=== PATIENT | female | born 1965 | race Caucasian/White ===

== ENCOUNTER 2017-01-22 19:24 | Inpatient (IN) | payer OTHER ==
[2017-01-22] MEDS ORDERED: Meperidine PF 25 MG/ML Syringe IVPUSH ONE (20:39)
[2017-01-22] MEDS ORDERED: Ondansetron 4 MG/2 ML SDV IVPUSH ONE (20:39)
[2017-01-22] MEDS: Sodium Chloride 0.9% 1,000 ML IV SCH ×2 (20:59→23:20)
[2017-01-22] MEDS ORDERED: Morphine 2 MG/ML Syringe IVPUSH ONE ×2 (21:10→23:18)
[2017-01-22] MEDS ORDERED: Iopamidol 612 MG/ML 100 ML Bottle IV PRN (22:08)
[2017-01-22] MEDS ORDERED: Sodium Chloride 0.9% 10 ML Syringe FLUSH ONE (22:08)
--- NOTE | 2017-01-22 23:34 | EDM.PDOC ---
ED HPI GI/ABDOMINAL - General Chief Complaint: Abdominal Pain Stated Complaint: SHARP PAIN IN ABD/RT SIDE Time Seen by Provider: 01/22/17 19:55 Source: Reports: Patient, Family History Limitations: Reports: No limitations - History of Present Illness INITIAL COMMENTS - FREE TEXT/NARRATIVE: pt has had severe lower abdomanal pain for the past week. She has eaten very little but when she eats she has a loose stool. S he is nauseated but not vomiting. Her pain has gotten progressively worse. Timing/Duration: Reports: Day(s):, Getting worse Location: generalized Quality: Reports: fullness, stabbing, other ( Her pain seemes to be more on the rt side. She is post cholestectomy. ) Associated Symptoms (-Female): Reports: loss of appetite, nausea/vomiting - Related Data Allergies/ADRs: Allergies Allergy/AdvReac Type Severity Reaction Status Date / Time acetaminophen [From Vicodin] Allergy Severe Hallucinati Verified 09/24/14 15:15 ons hydrocodone bitartrate Allergy Severe Hallucinati Verified 09/24/14 15:15 [From Vicodin] ons hydromorphone HCl Allergy Severe Hallucinati Verified 09/24/14 15:17 [From Dilaudid] ons iron dextran complex Allergy Intermediate Cannot Verified 09/24/14 15:18 [From Dexferrum] Remember peanut Allergy Intermediate Cannot Verified 09/24/14 15:18 Remember venom-honey bee Allergy Intermediate Cannot Verified 09/24/14 15:18 [bee venom (honey bee)] Remember codeine AdvReac Intermediate Vomiting Verified 09/24/14 15:17 meperidine HCl [From Demerol] AdvReac Intermediate Vomiting Verified 09/24/14 15 :17 Home Meds: Home Meds NK [No Known Home Meds] 09/24/14 [History] Past Medical History Gastrointestinal History: Reports: Cholelithiasis, Other (see below) Other Gastrointestinal History: 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: Musculoskeletal History: Reports: Fracture Hematologic History: Reports: Bleeding disorder, Blood transfusion(s) Oncologic (Cancer) History: Reports: Uterine - Past Surgical History GI Surgical History: Reports: Bariatric procedure, Cholecystectomy, Hernia repair/other, Other (see below) Other GI Surgeries/Procedures: Stent in [facility] Female Surgical History: Reports: section, Hysterectomy, Salpingo- oophorectomy Musculoskeletal Surgical History: Reports: Shoulder surgery Social & Family History - Tobacco Use Smoking Status *Q: Current Every Day Smoker Years of Tobacco use: 18 Packs/Tins Daily: 0.5 Second Hand Smoke Exposure: Yes - Caffeine Use Caffeine Use: Reports: Coffee - Alcohol Use Days Per Week of Alcohol Use: 0 - Recreational Drug Use Recreational Drug Use: No ED ROS GENERAL - Review of Systems Review Of Systems: See Below Constitutional: Reports: weakness, decreased appetite HEENT: Reports: No symptoms Respiratory: Reports: No Symptoms Cardiovascular: Reports: No symptoms Endocrine: Reports: no symptoms GI/Abdominal: Reports: Abdominal pain, Decreased appetite, Nausea : Reports: no symptoms Musculoskeletal: Reports: no symptoms Skin: Reports: no symptoms Neurological: Reports: No Symptoms ED EXAM, GI/ABD - Physical Exam Exam: See Below Text/Narrative:: Pt has had rt sided abdomanal pain. It starts high and moves to the lower ABDOMAN. Exam Limited By: No limitations General Appearance: alert, anxious, moderate distress Eyes: bilateral: normal appearance, EOMI Ears: normal TMs Nose: normal inspection Throat/Mouth: Normal inspection Head: atraumatic Neck: normal inspection Respiratory/Chest: no respiratory distress Cardiovascular: regular rate, rhythm GI/Abdominal: other (pT IS VERY TENDER IN THE RT UPPER AND RT LOWER ABDOMAN. There is a sensation of a mass in the mid abdoman more on the left side. ) Rectal (Female) Exam: Deferred Back Exam: normal inspection Extremities: normal inspection Neurological: alert, oriented, normal cognition Course - Vital Signs Last Recorded V/S: Last Vital Signs Temp 35.9 C 01/22/17 23:45 Pulse 60 01/22/17 23:45 Resp 16 01/22/17 23:45 BP 107/58 L 01/22/17 23:45 Pulse Ox 95 01/22/17 23:45 - Orders/Labs/Meds Orders: Active Orders 24 hr Category Date Time Status Abdomen Pelvis w Cont [CT] Stat Exams 01/22/17 21:34 Taken Iopamidol [Isovue-300 (61%)] Med 01/22/17 22:08 Active 100 ml IV . DIRECTED PRN Sodium Chloride 0.9% [Normal Saline] 1,000 ml Med 01/22/17 20:45 Active IV ASDIRECTED Sodium Chloride 0.9% [Normal Saline] 1,000 ml Med 01/22/17 23:45 Active IV ASDIRECTED Sodium Chloride 0.9% [Normal Saline] 70 ml Med 01/22/17 22:15 Active IV ASDIRECTED Medication Orders Sodium Chloride (Normal Saline) 1,000 mls @ 999 mls/hr IV ASDIRECTED ROSMERY Last Admin: 01/22/17 23:20 Dose: 999 mls/hr Infusion: 01/22/17 22:00 Dose: 999 mls/hr Admin: 01/22/17 20:59 Dose: 999 mls/hr Sodium Chloride (Normal Saline) 70 mls @ 3 mls/sec IV ASDIRECTED ROSMERY Last Admin: 01/22/17 22:48 Dose: 3 mls/sec Sodium Chloride (Normal Saline) 1,000 mls @ 999 mls/hr IV ASDIRECTED ROSMERY Iopamidol (Isovue-300 (61%)) 100 ml IV . DIRECTED PRN PRN Reason: RADIOLOGY EXAM Stop: 01/23/17 22:09 Last Admin: 01/22/17 22:48 Dose: 100 ml Labs: Laboratory Tests 01/22/17 01/22/17 01/22/17 Range/Units 20:52 20:52 21:36 WBC 4.5 (4.5-11.0) K/uL RBC 4.21 (3.30-5.50) M/uL Hgb 8.9 L (12.0-15.0) g/dL Hct 30.2 L (36.0-48.0) % MCV 72 L (80-98) fL MCH 21 L (27-31) pg MCHC 30 L (32-36) % Plt Count 339 (150-400) K/uL Neut % (Auto) 57 (36-66) % Lymph % (Auto) 30 (24-44) % [place] % (Auto) 9 H (2-6) % Eos % (Auto) 3 (2-4) % Baso % (Auto) 1 (0-1) % Sodium 144 (140-148) mmol/L Potassium 3.8 (3.6-5.2) mmol/L Chloride 109 H (100-108) mmol/L Carbon Dioxide 27 (21-32) mmol/L Anion Gap 11.8 (5.0-14.0) mmol/L BUN 9 (7-18) mg/dL Creatinine 0.6 (0.6-1.0) mg/dL Est Cr Clr Drug Dosing 89.70 mL/min Estimated GFR (MDRD) > 60 (>60) Glucose 88 (74-106) mg/dL Calcium 7.6 L (8.5-10.1) mg/dL Total Bilirubin 0.2 (0.2-1.0) mg/dL AST 16 (15-37) U/L ALT 16 (12-78) U/L Alkaline Phosphatase 70 (46-116) U/L C-Reactive Protein 0.13 (0.0-0.3) mg/dL Total Protein 5.7 L (6.4-8.2) g/dL Albumin 2.8 L (3.4-5.0) g/dL Globulin 2.9 (2.3-3.5) g/dL Albumin/Globulin Ratio 1.0 L (1.2-2.2) Urine Color Urine Appearance Urine pH (4.5-8.0) Ur Specific [place] (1.008-1.030) Urine Protein (NEGATIVE) mg/dL Urine Glucose (UA) (NEGATIVE) mg/dL Urine Ketones (NEGATIVE) mg/dL Urine Occult Blood (NEGATIVE) Urine Nitrite (NEGATIVE) Urine Bilirubin (NEGATIVE) Urine Urobilinogen (NORMAL) mg/dL Ur Leukocyte Esterase (NEGATIVE) Urine RBC (0-5) Urine WBC (0-5) Ur Epithelial Cells Amorphous Sediment Urine Bacteria Urine Mucus 01/22/17 Range/Units 21:49 WBC (4.5-11.0) K/uL RBC (3.30-5.50) M/uL Hgb (12.0-15.0) g/dL Hct (36.0-48.0) % MCV (80-98) fL MCH (27-31) pg MCHC (32-36) % Plt Count (150-400) K/uL Neut % (Auto) (36-66) % Lymph % (Auto) (24-44) % [place] % (Auto) (2-6) % Eos % (Auto) (2-4) % Baso % (Auto) (0-1) % Sodium (140-148) mmol/L Potassium (3.6-5.2) mmol/L Chloride (100-108) mmol/L Carbon Dioxide (21-32) mmol/L Anion Gap (5.0-14.0) mmol/L BUN (7-18) mg/dL Creatinine (0.6-1.0) mg/dL Est Cr Clr Drug Dosing mL/min Estimated GFR (MDRD) (>60) Glucose (74-106) mg/dL Calcium (8.5-10.1) mg/dL Total Bilirubin (0.2-1.0) mg/dL AST (15-37) U/L ALT (12-78) U/L Alkaline Phosphatase (46-116) U/L C-Reactive Protein (0.0-0.3) mg/dL Total Protein (6.4-8.2) g/dL Albumin (3.4-5.0) g/dL Globulin (2.3-3.5) g/dL Albumin/Globulin Ratio (1.2-2.2) Urine Color Yellow Urine Appearance Clear Urine pH 6.5 (4.5-8.0) Ur Specific [place] 1.015 (1.008-1.030) Urine Protein Negative (NEGATIVE) mg/dL Urine Glucose (UA) Normal (NEGATIVE) mg/dL Urine Ketones Negative (NEGATIVE) mg/dL Urine Occult Blood Negative (NEGATIVE) Urine Nitrite Negative (NEGATIVE) Urine Bilirubin Negative (NEGATIVE) Urine Urobilinogen Normal (NORMAL) mg/dL Ur Leukocyte Esterase Negative (NEGATIVE) Urine RBC Not seen (0-5) Urine WBC 0-5 (0-5) Ur Epithelial Cells Few Amorphous Sediment Not seen Urine Bacteria Moderate Urine Mucus Few Meds: Medications Generic Name Dose Route Start Last Admin Trade Name Adam PRN Reason Stop Dose Admin Sodium Chloride 1,000 mls @ 999 mls/hr 01/22/17 20:45 01/22/17 23:20 Normal Saline IV 999 mls/hr ASDIRECTED ROSMERY Administration Sodium Chloride 70 mls @ 3 mls/sec 01/22/17 22:15 01/22/17 22:48 Normal Saline IV 3 mls/sec ASDIRECTED ROSMERY Administration Sodium Chloride 1,000 mls @ 999 mls/hr 01/22/17 23:45 Normal Saline IV ASDIRECTED ROSMERY Iopamidol 100 ml 01/22/17 22:08 01/22/17 22:48 Isovue-300 (61%) IV 01/23/17 22:09 100 ml . DIRECTED PRN Administration RADIOLOGY EXAM Discontinued Medications Generic Name Dose Route Start Last Admin Trade Name Adam PRN Reason Stop Dose Admin Meperidine HCl 15 mg 01/22/17 20:39 01/22/17 21:17 Demerol IVPUSH 01/22/17 20:40 Not Given ONETIME ONE Morphine Sulfate 2 mg 01/22/17 21:10 01/22/17 21:14 Morphine IVPUSH 01/22/17 21:11 2 mg ONETIME ONE Administration Morphine Sulfate 2 mg 01/22/17 23:18 01/22/17 23:38 Morphine IVPUSH 01/22/17 23:19 2 mg ONETIME ONE Administration Ondansetron HCl 4 mg 01/22/17 20:39 01/22/17 21:01 Zofran IVPUSH 01/22/17 20:40 4 mg ONETIME ONE Administration Sodium Chloride 10 ml 01/22/17 22:08 01/22/17 22:48 Saline Flush FLUSH 01/22/17 22:09 10 ml ONETIME ONE Administration - Re-Assessments/Exams Free Text/Narrative Re-Assessment/Exam: 01/22/17 23:34 HG IS LOW AT 8.8. hER CAT SCAN SHOWS SOME QUESTIONABLE MASS PRESENT. There was a fair amount of acetes. 01/23/17 00:44 pt has received 2 liters ofluid. She has had relieve with the IV morphine. Departure - Departure Time of Disposition: 00:46 Disposition: Admitted As Inpatient 68 Condition: fair Clinical Impression: Abdominal pain, Pulmonary nodules, Ascites Referrals: Sher Parra MD [Primary Care Provider] - Forms: ED Department Discharge Care Plan Goals: admit to Dr mayer. - My Orders Last 24 Hours: My Active Orders 01/22/17 20:45 Sodium Chloride 0.9% [Normal Saline] 1,000 ml IV ASDIRECTED 01/22/17 21:34 Abdomen Pelvis w Cont [CT] Stat 01/22/17 22:08 Iopamidol [Isovue-300 (61%)] 100 ml IV . DIRECTED PRN 01/22/17 22:15 Sodium Chloride 0.9% [Normal Saline] 70 ml IV ASDIRECTED 01/22/17 23:45 Sodium Chloride 0.9% [Normal Saline] 1,000 ml IV ASDIRECTED - Assessment/Plan Last 24 Hours: My Active Orders 01/22/17 20:45 Sodium Chloride 0.9% [Normal Saline] 1,000 ml IV ASDIRECTED 01/22/17 21:34 Abdomen Pelvis w Cont [CT] Stat 01/22/17 22:08 Iopamidol [Isovue-300 (61%)] 100 ml IV . DIRECTED PRN 01/22/17 22:15 Sodium Chloride 0.9% [Normal Saline] 70 ml IV ASDIRECTED 01/22/17 23:45 Sodium Chloride 0.9% [Normal Saline] 1,000 ml IV ASDIRECTED
[2017-01-22] MEDS ORDERED: Sodium Chloride 0.9% 1,000 ML IV SCH (23:45)
--- NOTE | 2017-01-23 01:45 | PCM.HP ---
H&P History of Present Illness - General Date of Service: 01/23/17 Admit Problem/Dx: Admission Diagnosis/Problem Admission Diagnosis/Problem Nausea and vomiting Source of Information: Patient, Family, Old records, Provider, RN notes reviewed History Limitations: Reports: No limitations - History of Present Illness Initial Comments - Free Text/Narative: This patient is a 51-year-old woman who is admitted through the emergency department for further evaluation and management of abdominal pain, nausea vomiting, and ascites. States that she really has not felt well and has had some ongoing difficulty with eating over the past 6 months. Now over the past week, she develops nausea and vomiting with very minimal oral intake of solids. She is able to take liquids somewhat better without significant symptoms. During this period time has had fairly intense pain in her right abdomen described as a cramping sensation, it will wax and wane somewhat in intensity but is always there. Pain does not seem to become significantly worse with eating. She's also had some intermittent diarrhea over the past week. There have been no fevers, chills, or sweats during this period of time. She's had recent evaluation with chest x-ray and found to have several pulmonary nodules that were felt to be nonspecific. Followup CT scan is been recommended in 3 months. She's had an infection in her arrived axilla and also has developed nodules in her posterior neck. Infection in the axilla has improved on recent oral antibiotic therapy with doxycycline. 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 She is also status post cholecystectomy. Evaluation in the emergency department shows normal white blood cell count and kidney function. CT scan of the abdomen was obtained and showed ascites throughout the abdomen but no other specific abnormalities. Right sided abdomen Pain Score (Numeric/FACES): 8 - Related Data Allergies/Adverse Reactions: Allergies Allergy/AdvReac Type Severity Reaction Status Date / Time acetaminophen [From Vicodin] Allergy Severe Hallucinati Verified 09/24/14 15:15 ons hydrocodone bitartrate Allergy Severe Hallucinati Verified 09/24/14 15:15 [From Vicodin] ons hydromorphone HCl Allergy Severe Hallucinati Verified 09/24/14 15:17 [From Dilaudid] ons iron dextran complex Allergy Intermediate Cannot Verified 09/24/14 15:18 [From Dexferrum] Remember peanut Allergy Intermediate Cannot Verified 09/24/14 15:18 Remember venom-honey bee Allergy Intermediate Cannot Verified 09/24/14 15:18 [bee venom (honey bee)] Remember codeine AdvReac Intermediate Vomiting Verified 09/24/14 15:17 meperidine HCl [From Demerol] AdvReac Intermediate Vomiting Verified 09/24/14 15 :17 Home Medications: Home Meds Doxycycline [Doxycycline Hyclate] 100 mg PO BID 01/23/17 [History] Past Medical History Gastrointestinal History: Reports: Cholelithiasis, Other (see below) Other Gastrointestinal History: 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: Musculoskeletal History: Reports: Fracture Hematologic History: Reports: Bleeding disorder, Blood transfusion(s) Oncologic (Cancer) History: Reports: Uterine - Past Surgical History GI Surgical History: Reports: Bariatric procedure, Cholecystectomy, Hernia repair/other, Other (see below) Other GI Surgeries/Procedures: Stent in [facility] Female Surgical History: Reports: section, Hysterectomy, Salpingo- oophorectomy Musculoskeletal Surgical History: Reports: Shoulder surgery Social & Family History - Tobacco Use Smoking Status *Q: Current Every Day Smoker Years of Tobacco use: 18 Packs/Tins Daily: 0.5 Second Hand Smoke Exposure: Yes - Caffeine Use Caffeine Use: Reports: Coffee - Alcohol Use Days Per Week of Alcohol Use: 0 - Recreational Drug Use Recreational Drug Use: No H&P Review of Systems - Review of Systems: Review Of Systems: See Below General: Reports: weakness, fatigue, weight loss. Denies: fever, chills, night sweats, diaphoresis, decreased appetite HEENT: Reports: no symptoms Pulmonary: Reports: No Symptoms Cardiovascular: Reports: no symptoms Gastrointestinal: Reports: Abdominal pain, Diarrhea, Flatus, Nausea, Vomiting. Denies: Anorexia, Black stool, Bloody stool, Constipation, Difficulty swallowing , Distension Genitourinary: Reports: no symptoms Musculoskeletal: Reports: no symptoms Skin: Reports: no symptoms Psychiatric: Reports: no symptoms Neurological: Reports: No Symptoms Hematologic/Lymphatic: Reports: no symptoms Immunologic: Reports: no symptoms Exam - Exam Exam: See Below - Vital Signs Vital Signs: Last Vital Signs Temp 97.5 F 01/23/17 01:30 Pulse 62 01/23/17 01:30 Resp 14 01/23/17 01:30 BP 110/62 01/23/17 01:30 Pulse Ox 96 01/23/17 01:30 Weight: 146 lb - Exam Quality Assessment: DVT prophylaxis General: alert, oriented, cooperative, mild distress HEENT: Conjunctiva clear, EOMI, Hearing intact, Mucosa moist & pink, Nares patent, Normal nasal septum, Posterior pharynx clear, Pupils equal, Pupils reactive Neck: supple, trachea midline, +2 carotid pulse wo bruit, other (Palpable nodules in the upper posterior neck) Lungs: Clear to auscultation, Normal respiratory effort Cardiovascular: regular rate, regular rhythm, normal S1, normal S2. No: irregular rhythm, bradycardia, tachycardia, systolic murmur, diastolic murmur Abdomen: soft, tenderness, hypoactive bowel sounds. No: organomegaly, peritoneal signs, distention, guarding, rigidity, rebound Back Exam: normal inspection, full range of motion, NT Extremities: 3, normal inspection, 10 Skin: warm, dry, intact Neurological: cranial nerves intact, strength equal bilateral, normal speech, normal tone, sensation intact. No: focal deficit Neuro Extensive - Mental Status: alert, oriented x3, normal mood/affect, normal cognition, memory intact - Patient Data Lab Results last 24 hrs: Laboratory Results - last 24 hr 01/22/17 01/22/17 01/22/17 Range/Units 20:52 20:52 21:36 WBC 4.5 (4.5-11.0) K/uL RBC 4.21 (3.30-5.50) M/uL Hgb 8.9 L (12.0-15.0) g/dL Hct 30.2 L (36.0-48.0) % MCV 72 L (80-98) fL MCH 21 L (27-31) pg MCHC 30 L (32-36) % Plt Count 339 (150-400) K/uL Neut % (Auto) 57 (36-66) % Lymph % (Auto) 30 (24-44) % [place] % (Auto) 9 H (2-6) % Eos % (Auto) 3 (2-4) % Baso % (Auto) 1 (0-1) % Sodium 144 (140-148) mmol/L Potassium 3.8 (3.6-5.2) mmol/L Chloride 109 H (100-108) mmol/L Carbon Dioxide 27 (21-32) mmol/L Anion Gap 11.8 (5.0-14.0) mmol/L BUN 9 (7-18) mg/dL Creatinine 0.6 (0.6-1.0) mg/dL Est Cr Clr Drug Dosing 89.70 mL/min Estimated GFR (MDRD) > 60 (>60) Glucose 88 (74-106) mg/dL Calcium 7.6 L (8.5-10.1) mg/dL Total Bilirubin 0.2 (0.2-1.0) mg/dL AST 16 (15-37) U/L ALT 16 (12-78) U/L Alkaline Phosphatase 70 (46-116) U/L C-Reactive Protein 0.13 (0.0-0.3) mg/dL Total Protein 5.7 L (6.4-8.2) g/dL Albumin 2.8 L (3.4-5.0) g/dL Globulin 2.9 (2.3-3.5) g/dL Albumin/Globulin Ratio 1.0 L (1.2-2.2) Urine Color Urine Appearance Urine pH (4.5-8.0) Ur Specific [place] (1.008-1.030) Urine Protein (NEGATIVE) mg/dL Urine Glucose (UA) (NEGATIVE) mg/dL Urine Ketones (NEGATIVE) mg/dL Urine Occult Blood (NEGATIVE) Urine Nitrite (NEGATIVE) Urine Bilirubin (NEGATIVE) Urine Urobilinogen (NORMAL) mg/dL Ur Leukocyte Esterase (NEGATIVE) Urine RBC (0-5) Urine WBC (0-5) Ur Epithelial Cells Amorphous Sediment Urine Bacteria Urine Mucus 01/22/17 Range/Units 21:49 WBC (4.5-11.0) K/uL RBC (3.30-5.50) M/uL Hgb (12.0-15.0) g/dL Hct (36.0-48.0) % MCV (80-98) fL MCH (27-31) pg MCHC (32-36) % Plt Count (150-400) K/uL Neut % (Auto) (36-66) % Lymph % (Auto) (24-44) % [place] % (Auto) (2-6) % Eos % (Auto) (2-4) % Baso % (Auto) (0-1) % Sodium (140-148) mmol/L Potassium (3.6-5.2) mmol/L Chloride (100-108) mmol/L Carbon Dioxide (21-32) mmol/L Anion Gap (5.0-14.0) mmol/L BUN (7-18) mg/dL Creatinine (0.6-1.0) mg/dL Est Cr Clr Drug Dosing mL/min Estimated GFR (MDRD) (>60) Glucose (74-106) mg/dL Calcium (8.5-10.1) mg/dL Total Bilirubin (0.2-1.0) mg/dL AST (15-37) U/L ALT (12-78) U/L Alkaline Phosphatase (46-116) U/L C-Reactive Protein (0.0-0.3) mg/dL Total Protein (6.4-8.2) g/dL Albumin (3.4-5.0) g/dL Globulin (2.3-3.5) g/dL Albumin/Globulin Ratio (1.2-2.2) Urine Color Yellow Urine Appearance Clear Urine pH 6.5 (4.5-8.0) Ur Specific [place] 1.015 (1.008-1.030) Urine Protein Negative (NEGATIVE) mg/dL Urine Glucose (UA) Normal (NEGATIVE) mg/dL Urine Ketones Negative (NEGATIVE) mg/dL Urine Occult Blood Negative (NEGATIVE) Urine Nitrite Negative (NEGATIVE) Urine Bilirubin Negative (NEGATIVE) Urine Urobilinogen Normal (NORMAL) mg/dL Ur Leukocyte Esterase Negative (NEGATIVE) Urine RBC Not seen (0-5) Urine WBC 0-5 (0-5) Ur Epithelial Cells Few Amorphous Sediment Not seen Urine Bacteria Moderate Urine Mucus Few Result Diagrams: 01/22/17 20:52 01/22/17 20:52 *Q Meaningful Use (ADM) - VTE *Q VTE Criteria *Q: - VTE Risk Assess *Q Each Risk Factor Represents 1 Point: Age 41 - 59 years, History of Prior Major Surgery Total Score 1 Point Risk Factors: 2 Each Risk Factor Represents 2 Points: None Total Score 2 Point Risk Factors: 0 Each Risk Factor Represents 3 Points: None Total Score 3 Point Risk Factors: 0 Each Risk Factor Represents 5 Points: None Total Score 5 Point Risk Factors: 0 Venous Thromboembolism Risk Factor Score *Q: 2 - Stroke *Q Stroke Criteria *Q: - AMI *Q AMI Criteria *Q: Problem List Initiated/Reviewed/Updated: Yes Orders Last 24hrs: Active Orders 24 hr Category Date Time Status Patient Status Manage Transfer [TRANSFER] Routine ADT 01/23/17 01:29 Ordered Abdomen Pelvis w Cont [CT] Stat Exams 01/22/17 21:34 Taken Iopamidol [Isovue-300 (61%)] Med 01/22/17 22:08 Active 100 ml IV . DIRECTED PRN Sodium Chloride 0.9% [Normal Saline] 1,000 ml Med 01/22/17 20:45 Active IV ASDIRECTED Sodium Chloride 0.9% [Normal Saline] 1,000 ml Med 01/22/17 23:45 Active IV ASDIRECTED Sodium Chloride 0.9% [Normal Saline] 70 ml Med 01/22/17 22:15 Active IV ASDIRECTED Resuscitation Status Routine Resus Stat 01/23/17 01:32 Ordered Medication Orders Sodium Chloride (Normal Saline) 1,000 mls @ 999 mls/hr IV ASDIRECTED [facility] Last Admin: 01/22/17 23:20 Dose: 999 mls/hr Infusion: 01/22/17 22:00 Dose: 999 mls/hr Admin: 01/22/17 20:59 Dose: 999 mls/hr Sodium Chloride (Normal Saline) 70 mls @ 3 mls/sec IV ASDIRECTED [facility] Last Admin: 01/22/17 22:48 Dose: 3 mls/sec Sodium Chloride (Normal Saline) 1,000 mls @ 999 mls/hr IV ASDIRECTED [facility] Last Admin: 01/22/17 20:50 Dose: 999 mls/hr Iopamidol (Isovue-300 (61%)) 100 ml IV . DIRECTED PRN PRN Reason: RADIOLOGY EXAM Stop: 01/23/17 22:09 Last Admin: 01/22/17 22:48 Dose: 100 ml Assessment/Plan Comment:: ASSESSMENT AND PLAN ABDOMINAL PAIN ASSOCIATED WITH NAUSEA VOMITING AND ASCITES-she's had some difficulty in eating over the past 6 months, symptoms have been significantly worse over the past week. She is only able the do small amount of solids before she begins to experience nausea and vomiting. She has been able to tolerate liquids fairly well and has been able to keep herself hydrated. Recent chest x-ray showed evidence of several pulmonary nodules which are felt to be indeterminate. White blood cell count is normal and she has had no fever or chills. Pain is in the right upper quadrant and radiates to the left upper abdomen or down into the right lower quadrant. Pain is described as cramping in nature, it's present mostly time but will wax and wane in intensity. She denies any precipitating or relieving factors. CT scan showed ascites throughout the abdomen but no other specific abnormalities. -N.p.o. -IV fluids for hydration -Fentanyl via NEIGHBORHOOD AIDE for pain control -Protonix 40 mg IV every 12 hours -Antiemetic therapy as needed -Consult Dr. Zafar in a.m. for surgical opinion PULMONARY NODULES-indeterminate by CT scan, current plan is to repeat scan in approximately 3 months. She is also noted to have some cervical nodules, plan had been for biopsy next week. HYDRADENITIS-improved on oral antibiotic therapy -Doxycycline 100 mg IV every 12 hours while n.p.o. STATUS POST CORBY-EN-Y GASTRIC BYPASS SURGERY MAINTENANCE ISSUES -DVT prophylaxis; Lovenox 40 mg subcutaneous daily -GI prophylaxis; Protonix as above -Ward catheter; not indicated -Nutrition; n.p.o. -Nicotine dependence; not required CODE STATUS-FULL CODE ADMISSION STATUS-patient will be admitted to inpatient status, expect at least a 2 night hospital stay for evaluation and management of problems as outlined above. At the time of this admission I do not reasonably expected evaluation and management of this problem will require more than a 96 hour hospital stay. DISPOSITION-anticipate discharge to home after the hospital stay. PRIMARY CARE PROVIDER- Dr. Parra
[2017-01-23] MEDS ORDERED: Sodium Chloride 0.9% 10 ML Syringe FLUSH PRN (01:53)
[2017-01-23] MEDS ORDERED: Naloxone 0.4 MG/ML SDV IVPUSH PRN ×2 (01:53)
[2017-01-23] MEDS ORDERED: Pantoprazole 40 MG Vial IV SCH (02:00)
[2017-01-23] MEDS ORDERED: Enoxaparin 40 MG/0.4 ML Syringe SUBCUT SCH (02:00)
[2017-01-23] MEDS: Ondansetron 4 MG/2 ML SDV IV PRN ×5 (02:20→20:42)
[2017-01-23] MEDS: fentaNYL/Normal Saline 600 MCG/30 ML PCA Vial IV PRN ×2 (02:23→11:59)
[2017-01-23] MEDS: Doxycycline 100 MG in Sodium Chloride 0.9% 100 ML IV SCH ×2 (02:35→14:26)
[2017-01-23] MEDS: Pantoprazole 40 MG Vial IV SCH ×2 (10:56→21:38)
--- NOTE | 2017-01-23 14:14 | PCM.PN ---
- General Info Date of Service: 01/23/17 Functional Status: Reports: pain controlled, urinating - Review of Systems General: Reports: Weakness. Denies: Fever, Chills Pulmonary: Reports: no symptoms Cardiovascular: Reports: No Symptoms Gastrointestinal: Reports: Abdominal pain, Nausea. Denies: Diarrhea, Difficulty swallowing, Vomiting Genitourinary: Reports: no symptoms Systems Review Comment:: This patient has felt somewhat better since admission, pain is under much better control with use of fentanyl ENVIRONMENTAL ATTORNEY. She's been seen and evaluated by Dr. Zafar, current plan is to proceed with further evaluation tomorrow including EGD , bronchoscopy, biopsy and resection of right axillary mass, as well as biopsy of posterior cervical nodules. Vital signs have been stable and she has remained afebrile. - Patient Data Vitals - most recent: Last Vital Signs Temp 97.4 F 01/23/17 11:19 Pulse 65 01/23/17 11:19 Resp 16 01/23/17 11:19 BP 95/55 L 01/23/17 11:19 Pulse Ox 92 L 01/23/17 13:59 Weight - most recent: 145 lb 15.983 oz I&O - last 24 hours: Intake & Output 01/22/17 01/23/17 01/23/17 22:59 06:59 14:59 Intake Total 306 240 Output Total 100 150 Balance 206 90 Lab Results last 24 hrs: Laboratory Results - last 24 hr 01/23/17 01/23/17 01/23/17 Range/Units 04:39 04:39 06:00 WBC 4.3 L (4.5-11.0) K/uL RBC 3.76 (3.30-5.50) M/uL Hgb 7.8 L (12.0-15.0) g/dL Hct 27.4 L (36.0-48.0) % MCV 73 L (80-98) fL MCH 21 L (27-31) pg MCHC 29 L (32-36) % Plt Count 295 (150-400) K/uL Neut % (Auto) 50 (36-66) % Lymph % (Auto) 37 (24-44) % [place] % (Auto) 9 H (2-6) % Eos % (Auto) 3 (2-4) % Baso % (Auto) 1 (0-1) % Sodium 145 (140-148) mmol/L Potassium 3.7 (3.6-5.2) mmol/L Chloride 112 H (100-108) mmol/L Carbon Dioxide 25 (21-32) mmol/L Anion Gap 11.7 (5.0-14.0) mmol/L BUN 7 (7-18) mg/dL Creatinine 0.6 (0.6-1.0) mg/dL Est Cr Clr Drug Dosing TNP Estimated GFR (MDRD) > 60 (>60) Glucose 89 (74-106) mg/dL Calcium 7.2 L (8.5-10.1) mg/dL Magnesium 2.0 (1.8-2.4) mg/dL Ferritin (8-388) ng/ml Total Bilirubin 0.3 (0.2-1.0) mg/dL AST 15 (15-37) U/L ALT 28 (12-78) U/L Alkaline Phosphatase 60 (46-116) U/L Total Protein 5.0 L (6.4-8.2) g/dL Albumin 2.4 L (3.4-5.0) g/dL Globulin 2.6 (2.3-3.5) g/dL Albumin/Globulin Ratio 0.9 L (1.2-2.2) Vitamin B12 251 (193-986) pg/ml 01/23/17 Range/Units 06:32 WBC (4.5-11.0) K/uL RBC (3.30-5.50) M/uL Hgb (12.0-15.0) g/dL Hct (36.0-48.0) % MCV (80-98) fL MCH (27-31) pg MCHC (32-36) % Plt Count (150-400) K/uL Neut % (Auto) (36-66) % Lymph % (Auto) (24-44) % [place] % (Auto) (2-6) % Eos % (Auto) (2-4) % Baso % (Auto) (0-1) % Sodium (140-148) mmol/L Potassium (3.6-5.2) mmol/L Chloride (100-108) mmol/L Carbon Dioxide (21-32) mmol/L Anion Gap (5.0-14.0) mmol/L BUN (7-18) mg/dL Creatinine (0.6-1.0) mg/dL Est Cr Clr Drug Dosing Estimated GFR (MDRD) (>60) Glucose (74-106) mg/dL Calcium (8.5-10.1) mg/dL Magnesium (1.8-2.4) mg/dL Ferritin 5 L (8-388) ng/ml Total Bilirubin (0.2-1.0) mg/dL AST (15-37) U/L ALT (12-78) U/L Alkaline Phosphatase (46-116) U/L Total Protein (6.4-8.2) g/dL Albumin (3.4-5.0) g/dL Globulin (2.3-3.5) g/dL Albumin/Globulin Ratio (1.2-2.2) Vitamin B12 (193-986) pg/ml Med Orders - Current: Current Medications Enoxaparin Sodium (Lovenox) 40 mg SUBCUT Q24H [facility] Fentanyl Citrate (Fentanyl In Ns 20 Mcg/Ml 30 Ml Roping Machine Tender) 0 mcg IV ASDIRECTED PRN; Protocol PRN Reason: Pain Last Admin: 01/23/17 11:59 Dose: 600 mcg Doxycycline Hyclate 100 mg/ (Sodium Chloride) 100 mls @ 100 mls/hr IV Q12H [facility] Last Admin: 01/23/17 02:35 Dose: 100 mls/hr Lactated Ringer's (Ringers, Lactated) 1,000 mls @ 125 mls/hr IV ASDIRECTED [facility] Naloxone HCl (Narcan) 0.4 mg IVPUSH Q2M PRN PRN Reason: Respiratory Distress Ondansetron HCl (Zofran) 4 mg IV Q4H PRN PRN Reason: Nausea/Vomiting Last Admin: 01/23/17 12:15 Dose: 4 mg Pantoprazole Sodium (Protonix Iv) 40 mg IV Q12H [facility] Last Admin: 01/23/17 10:56 Dose: 40 mg Sodium Chloride (Saline Flush) 10 ml FLUSH ASDIRECTED PRN PRN Reason: Keep Vein Open Discontinued Medications Enoxaparin Sodium (Lovenox) 40 mg SUBCUT Q24H [facility] Last Admin: 01/23/17 02:21 Dose: 40 mg Sodium Chloride (Normal Saline) 1,000 mls @ 999 mls/hr IV ASDIRECTED [facility] Last Admin: 01/22/17 23:20 Dose: 999 mls/hr Sodium Chloride (Normal Saline) 70 mls @ 3 mls/sec IV ASDIRECTED [facility] Last Admin: 01/22/17 22:48 Dose: 3 mls/sec Sodium Chloride (Normal Saline) 1,000 mls @ 999 mls/hr IV ASDIRECTED [facility] Last Admin: 01/22/17 20:50 Dose: 999 mls/hr Iopamidol (Isovue-300 (61%)) 100 ml IV . DIRECTED PRN PRN Reason: RADIOLOGY EXAM Stop: 01/23/17 22:09 Last Admin: 01/22/17 22:48 Dose: 100 ml Meperidine HCl (Demerol) 15 mg IVPUSH ONETIME ONE Stop: 01/22/17 20:40 Last Admin: 01/22/17 21:17 Dose: Not Given Morphine Sulfate (Morphine) 2 mg IVPUSH ONETIME ONE Stop: 01/22/17 21:11 Last Admin: 01/22/17 21:14 Dose: 2 mg Morphine Sulfate (Morphine) 2 mg IVPUSH ONETIME ONE Stop: 01/22/17 23:19 Last Admin: 01/22/17 23:38 Dose: 2 mg Naloxone HCl (Narcan) 0.4 mg IVPUSH Q2M PRN PRN Reason: Respiratory Distress Ondansetron HCl (Zofran) 4 mg IVPUSH ONETIME ONE Stop: 01/22/17 20:40 Last Admin: 01/22/17 21:01 Dose: 4 mg Pantoprazole Sodium (Protonix Iv) 40 mg IV Q12H [facility] Last Admin: 01/23/17 02:22 Dose: 40 mg Sodium Chloride (Saline Flush) 10 ml FLUSH ONETIME ONE Stop: 01/22/17 22:09 Last Admin: 01/22/17 22:48 Dose: 10 ml - Exam Quality Assessment: DVT prophylaxis General: alert, oriented, cooperative, moderate distress Lungs: Clear to auscultation, Normal respiratory effort Cardiovascular: Regular Rate, Regular Rhythm, No Murmurs Abdomen: bowel sounds present, soft, no distension, tenderness. No: rigidity, rebound, guarding Extremities: no edema Skin: warm, dry, intact - Problem List Review Problem List Initiated/Reviewed/Updated: Yes - My Orders Last 24 Hours: My Active Orders 01/23/17 01:32 Resuscitation Status Routine 01/23/17 01:53 Patient Status [ADT] Routine Communication Order [RC] STAT Intake and Output [RC] QSHIFT Notify Provider Consults [RC] ASDIRECTED Notify Provider Vital Signs [RC] ASDIRECTED Notify Provider [RC] PRN Oxygen Therapy [RC] PRN ENVIRONMENTAL ATTORNEY Record [RC] PER UNIT ROUTINE Peripheral IV Care [RC] . DIRECTED Pulse Oximetry [RC] CONTINUOUS Up With Assistance [RC] ASDIRECTED VTE/DVT Education [RC] Per Unit Routine Vital Signs [RC] Q4H Consult to Physician [CONS] Routine Lactated Ringers [Ringers, Lactated] 1,000 ml IV ASDIRECTED Naloxone [Narcan] 0.4 mg IVPUSH Q2M PRN Ondansetron [Zofran] 4 mg IV Q4H PRN Sodium Chloride 0.9% [Saline Flush] 10 ml FLUSH ASDIRECTED PRN fentaNYL/Normal Saline [fentaNYL in NS 20 MCG/ML 30 ML ENVIRONMENTAL ATTORNEY] See Protocol IV ASDIRECTED PRN Medication Discontinuation Instructions [OM.PC] Stat Peripheral IV Insertion Adult [OM.PC] Routine 01/23/17 02:00 Doxycycline [Vibramycin] 100 mg Sodium Chloride 0.9% [Normal Saline] 100 ml IV Q12H 01/23/17 10:00 Pantoprazole [Protonix IV] 40 mg IV Q12H 01/23/17 20:00 Enoxaparin [Lovenox] 40 mg SUBCUT Q24H 01/24/17 05:00 BASIC METABOLIC PANEL,BMP [CHEM] Timed CBC WITH AUTO DIFF [HEME] Timed - Plan Plan:: ASSESSMENT AND PLAN ABDOMINAL PAIN ASSOCIATED WITH NAUSEA VOMITING AND ASCITES-she's had some difficulty in eating over the past 6 months, symptoms have been significantly worse over the past week. She is only able the do small amount of solids before she begins to experience nausea and vomiting. She has been able to tolerate liquids fairly well and has been able to keep herself hydrated. Recent chest x-ray showed evidence of several pulmonary nodules which are felt to be indeterminate. White blood cell count is normal and she has had no fever or chills. Pain is in the right upper quadrant and radiates to the left upper abdomen or down into the right lower quadrant. Pain is described as cramping in nature, it's present mostly time but will wax and wane in intensity. She denies any precipitating or relieving factors. CT scan showed ascites throughout the abdomen but no other specific abnormalities. Pain has been under better control since admission with use of fentanyl ENVIRONMENTAL ATTORNEY. -Full liquid diet -N.p.o. after midnight -EGD, bronchoscopy, resection of axillary mass, and biopsy of posterior cervical nodules tomorrow by Dr. Zafar -IV fluids for hydration -Fentanyl via ENVIRONMENTAL ATTORNEY for pain control -Protonix 40 mg IV every 12 hours -Antiemetic therapy as needed -Surgical followup per Dr. Zfaar PULMONARY NODULES-indeterminate by CT scan, current plan is to repeat scan in approximately 3 months. She is also noted to have some cervical nodules, plan had been for biopsy next week. HYDRADENITIS-improved on oral antibiotic therapy -Doxycycline 100 mg IV every 12 hours while n.p.o. STATUS POST RUTH-EN-Y GASTRIC BYPASS SURGERY MAINTENANCE ISSUES -DVT prophylaxis; Lovenox 40 mg subcutaneous daily -GI prophylaxis; Protonix as above -Ward catheter; not indicated -Nutrition; n.p.o. -Nicotine dependence; not required CODE STATUS-FULL CODE ADMISSION STATUS-patient will be admitted to inpatient status, expect at least a 2 night hospital stay for evaluation and management of problems as outlined above. At the time of this admission I do not reasonably expected evaluation and management of this problem will require more than a 96 hour hospital stay. DISPOSITION-anticipate discharge to home after the hospital stay. PRIMARY CARE PROVIDER- Dr. Parra
[2017-01-23] MEDS: Enoxaparin 40 MG/0.4 ML Syringe SUBCUT SCH (20:42)
[2017-01-23] MEDS: Lactated Ringers 1,000 ML IV SCH (20:42)
[2017-01-24] MEDS: Doxycycline 100 MG in Sodium Chloride 0.9% 100 ML IV SCH ×2 (02:12→14:35)
[2017-01-24] MEDS: Lactated Ringers 1,000 ML IV SCH (05:45)
[2017-01-24] MEDS ORDERED: Lidocaine 1% with EPINEPHrine 1:100,000 50 ML MDV ONE (08:09)
[2017-01-24] MEDS ORDERED: Bupivacaine 0.5% 50 ML MDV ONE (08:09)
[2017-01-24] MEDS ORDERED: Cyanocobalamin (Vitamin B12) 1,000 MCG/ML SDV IM ONE (09:00)
[2017-01-24] MEDS ORDERED: diphenhydrAMINE 50 MG/ML SDV IV PRN (09:18)
[2017-01-24] MEDS ORDERED: Hydrocortisone Sodium Succinate 100 MG/2 ML SDV IV PRN (09:19)
[2017-01-24] MEDS ORDERED: Famotidine 20 MG/2 ML SDV IV PRN (09:20)
--- NOTE | 2017-01-24 09:53 | PN ---
DATE OF SERVICE: 01/24/2017 SUBJECTIVE: Rocio is n.p.o. She will be having an EGD, bronchoscopy, and resection of right axillary mass. Her hemoglobin is 7.7 and ferritin is 5. She has no other concerns or questions today. She is n.p.o. OBJECTIVE: GENERAL: Rocio Wren is a 51-year-old female. She is alert and orientated. VITAL SIGNS: TPR is 100, 63, 20, blood pressure 86/58. HEENT: Negative. NECK: Supple. HEART: Regular rate and rhythm. LUNGS: Clear. ABDOMEN: Reveals tenderness in the right upper, mid, and lower quadrants. There is slight distention. EXTREMITIES: Without peripheral edema. ASSESSMENT: Right axillary mass, Clostridium difficile, low ferritin. PLAN: 1. Venofer 500 mg IV today and repeat tomorrow. 2. B12 of 1000 mcg IM. 3. Type and cross 2 units of packed red blood cells in a.m. 4. Check CBC and CMP in a.m. 5. Good pulmonary toilet encouraged. 6. We will evaluate p.r.n. or in a.m. Shweta Newby PA-C /[id number]
[2017-01-24] MEDS: Pantoprazole 40 MG Vial IV SCH ×2 (10:21→21:43)
[2017-01-24] MEDS: fentaNYL/Normal Saline 600 MCG/30 ML PCA Vial IV PRN (10:37)
--- NOTE | 2017-01-24 10:52 | PCM.PN ---
- General Info Date of Service: 01/24/17 Functional Status: Reports: pain controlled, tolerating diet - Review of Systems General: Reports: Fever Gastrointestinal: Reports: Abdominal pain. Denies: Vomiting Systems Review Comment:: no acute events overnight. Patient continues to endorse right-sided and right upper quadrant abdominal pain. Worse with trying to eat anything but still very uncomfortable even after being n.p.o. overnight. No significant nausea this morning. She did have a low-grade temperature elevation this morning. Axillary pain fairly well-controlled at this time. No diarrhea. - Patient Data Vitals - most recent: Last Vital Signs Temp 37.8 C 01/24/17 07:57 Pulse 63 01/24/17 07:57 Resp 20 01/24/17 07:57 BP 86/58 L 01/24/17 07:57 Pulse Ox 91 L 01/24/17 07:57 Weight - most recent: 66.224 kg I&O - last 24 hours: Intake & Output 01/23/17 01/24/17 01/24/17 22:59 06:59 14:59 Intake Total 2449 980 Output Total 400 600 Balance 2049 380 Lab Results last 24 hrs: Laboratory Results - last 24 hr 01/24/17 01/24/17 Range/Units 04:45 04:45 WBC 3.7 L (4.5-11.0) K/uL RBC 3.59 (3.30-5.50) M/uL Hgb 7.7 L (12.0-15.0) g/dL Hct 26.1 L (36.0-48.0) % MCV 73 L (80-98) fL MCH 21 L (27-31) pg MCHC 30 L (32-36) % Plt Count 283 (150-400) K/uL Neut % (Auto) 53 (36-66) % Lymph % (Auto) 33 (24-44) % [place] % (Auto) 9 H (2-6) % Eos % (Auto) 4 (2-4) % Baso % (Auto) 1 (0-1) % Sodium 143 (140-148) mmol/L Potassium 3.7 (3.6-5.2) mmol/L Chloride 110 H (100-108) mmol/L Carbon Dioxide 26 (21-32) mmol/L Anion Gap 10.7 (5.0-14.0) mmol/L BUN 7 (7-18) mg/dL Creatinine 0.6 (0.6-1.0) mg/dL Est Cr Clr Drug Dosing TNP Estimated GFR (MDRD) > 60 (>60) Glucose 91 (74-106) mg/dL Calcium 7.3 L (8.5-10.1) mg/dL Med Orders - Current: Current Medications Diphenhydramine HCl (Benadryl) 50 mg IV ASDIRECTED PRN PRN Reason: ALLERGIC REACTION Stop: 01/26/17 09:19 Enoxaparin Sodium (Lovenox) 40 mg SUBCUT Q24H [facility] Last Admin: 01/23/17 20:42 Dose: 40 mg Famotidine (Pepcid) 20 mg IV ASDIRECTED PRN PRN Reason: ALLERGIC REACTION Stop: 01/26/17 09:21 Fentanyl Citrate (Fentanyl In Ns 20 Mcg/Ml 30 Ml Cement Mixer Driver) 0 mcg IV ASDIRECTED PRN; Protocol PRN Reason: Pain Last Admin: 01/24/17 10:37 Dose: 600 mcg Hydrocortisone Sodium Succinate (Solu-Cortef) 100 mg IV ASDIRECTED PRN PRN Reason: ALLERGIC REACTION Stop: 01/26/17 09:20 Doxycycline Hyclate 100 mg/ (Sodium Chloride) 100 mls @ 100 mls/hr IV Q12H [facility] Last Admin: 01/24/17 02:12 Dose: 100 mls/hr Lactated Ringer's (Ringers, Lactated) 1,000 mls @ 125 mls/hr IV ASDIRECTED [facility] Last Admin: 01/24/17 05:45 Dose: 125 mls/hr Iron Sucrose 500 mg/ Sodium (Chloride) 275 mls @ 68 mls/hr IV ONETIME ONE Stop: 01/24/17 22:02 Iron Sucrose 500 mg/ Sodium (Chloride) 275 mls @ 68 mls/hr IV ONETIME ONE Stop: 01/25/17 22:02 Naloxone HCl (Narcan) 0.4 mg IVPUSH Q2M PRN PRN Reason: Respiratory Distress Ondansetron HCl (Zofran) 4 mg IV Q4H PRN PRN Reason: Nausea/Vomiting Last Admin: 01/23/17 20:42 Dose: 4 mg Pantoprazole Sodium (Protonix Iv) 40 mg IV Q12H [facility] Last Admin: 01/24/17 10:21 Dose: 40 mg Sodium Chloride (Saline Flush) 10 ml FLUSH ASDIRECTED PRN PRN Reason: Keep Vein Open Discontinued Medications Bupivacaine HCl (Marcaine 0.5%) Confirm Administered Dose 50 ml .ROUTE .K-MED ONE Stop: 01/24/17 08:10 Cyanocobalamin (Vitamin B12) 1,000 mcg IM ONETIME ONE Stop: 01/24/17 09:01 Last Admin: 01/24/17 10:21 Dose: 1,000 mcg Enoxaparin Sodium (Lovenox) 40 mg SUBCUT Q24H [facility] Last Admin: 01/23/17 02:21 Dose: 40 mg Sodium Chloride (Normal Saline) 1,000 mls @ 999 mls/hr IV ASDIRECTED [facility] Last Admin: 01/22/17 23:20 Dose: 999 mls/hr Sodium Chloride (Normal Saline) 70 mls @ 3 mls/sec IV ASDIRECTED [facility] Last Admin: 01/22/17 22:48 Dose: 3 mls/sec Sodium Chloride (Normal Saline) 1,000 mls @ 999 mls/hr IV ASDIRECTED [facility] Last Admin: 01/22/17 20:50 Dose: 999 mls/hr Iopamidol (Isovue-300 (61%)) 100 ml IV . DIRECTED PRN PRN Reason: RADIOLOGY EXAM Stop: 01/23/17 22:09 Last Admin: 01/22/17 22:48 Dose: 100 ml Lidocaine/Epinephrine (Xylocaine 1% With Epinephrine 1:100,000) Confirm Administered Dose 50 ml .ROUTE .K-MED ONE Stop: 01/24/17 08:10 Meperidine HCl (Demerol) 15 mg IVPUSH ONETIME ONE Stop: 01/22/17 20:40 Last Admin: 01/22/17 21:17 Dose: Not Given Morphine Sulfate (Morphine) 2 mg IVPUSH ONETIME ONE Stop: 01/22/17 21:11 Last Admin: 01/22/17 21:14 Dose: 2 mg Morphine Sulfate (Morphine) 2 mg IVPUSH ONETIME ONE Stop: 01/22/17 23:19 Last Admin: 01/22/17 23:38 Dose: 2 mg Naloxone HCl (Narcan) 0.4 mg IVPUSH Q2M PRN PRN Reason: Respiratory Distress Ondansetron HCl (Zofran) 4 mg IVPUSH ONETIME ONE Stop: 01/22/17 20:40 Last Admin: 01/22/17 21:01 Dose: 4 mg Pantoprazole Sodium (Protonix Iv) 40 mg IV Q12H [facility] Last Admin: 01/23/17 02:22 Dose: 40 mg Sodium Chloride (Saline Flush) 10 ml FLUSH ONETIME ONE Stop: 01/22/17 22:09 Last Admin: 01/22/17 22:48 Dose: 10 ml - Exam Quality Assessment: No: supplemental oxygen General: alert, oriented, cooperative, no acute distress Neck: supple Lungs: Normal respiratory effort Abdomen: soft, no distension, guarding (moderate RUQ), tenderness (moderate pain in both RLQ and RUQ) Extremities: no edema, no cyanosis Skin: warm, dry Psy/Mental Status: alert, normal affect - Problem List Review Problem List Initiated/Reviewed/Updated: Yes - My Orders Last 24 Hours: My Active Orders 01/24/17 10:48 Abdomen Ltd [US] Routine - Plan Plan:: ASSESSMENT AND PLAN ABDOMINAL PAIN ASSOCIATED WITH NAUSEA VOMITING AND ASCITES - acute on chronic difficulties. CT did not show definite cause but did reveal significant ascites. EGD planned for today. -N.p.o. until after endoscopy -Right upper quadrant ultrasound to further assess liver anatomy and hepatic blood flow -IV fluids for hydration -Fentanyl via SUTURE POLISHER for pain control -Protonix 40 mg IV every 12 hours -Antiemetic therapy as needed -Surgical followup per Dr. Zafar PULMONARY NODULES - indeterminate by CT scan, current plan is to repeat scan in approximately 3 months. She is also noted to have some cervical nodules, plan had been for biopsy next week. HYDRADENITIS - improved on oral antibiotic therapy, surgical intervention planned for today -Surgery as per Dr. Zafar -Doxycycline 100 mg IV every 12 hours while n.p.o. STATUS POST RUTH-EN-Y GASTRIC BYPASS SURGERY MAINTENANCE ISSUES -DVT prophylaxis; Lovenox 40 mg subcutaneous daily -GI prophylaxis; Protonix as above -Ward catheter; not indicated -Nutrition; n.p.o. DISPOSITION - anticipate discharge to home after the hospital stay. Michael Barker M.D.
[2017-01-24] MEDS ORDERED: fentaNYL 100 MCG/2 ML SDV ONE (11:41)
[2017-01-24] MEDS ORDERED: Propofol 200 MG/20 ML SDV ONE ×3 (11:41→13:41)
[2017-01-24] MEDS ORDERED: Midazolam 1 MG/ML 2 ML SDV ONE (11:42)
[2017-01-24] MEDS ORDERED: Lidocaine 4% Top Soln 4 ML LTA Syringe ONE (11:42)
[2017-01-24] MEDS ORDERED: Lactated Ringers 1,000 ML ONE (12:55)
[2017-01-24] MEDS ORDERED: Lidocaine 4% Top Soln 50 ML Bottle ONE (13:02)
[2017-01-24] MEDS ORDERED: Lidocaine 2% Viscous Solution 15 ML Cup ONE (13:02)
--- NOTE | 2017-01-24 13:05 | PN ---
DATE OF SERVICE: 01/24/2017 This is a 51-year-old presenting with a complex of onset of ascites, multiple lung nodules as well as lymphadenopathy following right axilla which is not actively inflamed as well as some cervical lymphadenopathy, also complaining quite a bit in the way of gastric band. Other details are per Dr. Sim's notes after review of the case with Dr. Sim, plan will be tomorrow to proceed with an upper GI endoscopy, bronchoscopy with biopsies as indicated along with excision of inflammatory mass along the right axilla. We will try to get frozen sections on that. She may not be definitively diagnosed, a thoracoscopic lung biopsy might be warranted on Tuesday to officially obtain a tissue diagnosis of what is going on there. Juan Zafar MD /[id number]
[2017-01-24] MEDS ORDERED: Iron Sucrose Complex 500 MG in Sodium Chloride 0.9% 250 ML IV ONE (18:00)
[2017-01-24] MEDS: Enoxaparin 40 MG/0.4 ML Syringe SUBCUT SCH (21:43)
[2017-01-25] MEDS: Doxycycline 100 MG in Sodium Chloride 0.9% 100 ML IV SCH ×2 (05:00→14:50)
--- NOTE | 2017-01-25 08:29 | PN ---
DATE OF SERVICE: 01/25/2017 SUBJECTIVE: Rocio is n.p.o. for a right thoracoscopy and resection of lung nodules and Parr catheter. Case to follow today. She has received 1 unit of packed red blood cells and is in the process of getting her second. Hemoglobin this morning is 8.7, potassium 3.4. She has no other questions. Dr. Juan Zafar was in and explained the procedure to the patient and her and answered questions. OBJECTIVE: GENERAL: Rocio Wren is a 51-year-old female. VITAL SIGNS: TPR is 98.2, 61, 16, blood pressure 98/60. HEENT: Negative. NECK: Supple. HEART: Regular rate and rhythm. LUNGS: Reveal decreased breath sounds in bases. ABDOMEN: Slightly distended and generalized tenderness. EXTREMITIES: Without peripheral edema. ASSESSMENT: 1. Abdominal pain associated with nausea, vomiting, and clostridium difficile. 2. Pulmonary nodules. 3. Hidradenitis. 4. Status post [place]-en-Y gastric bypass surgery. 5. Anemia, requiring 2 units of packed red blood cells. PLAN: 1. To have CBC drawn 15 minutes after second packed unit of blood cells are in. 2. Orders to be written postoperatively. 3. We will evaluate p.r.n. or in a.m. Shweta Newby PA-C /[id number]
[2017-01-25] MEDS ORDERED: Bupivacaine 0.5%/EPINEPHrine 1:200,000 50 ML MDV ONE (08:40)
[2017-01-25] MEDS: Pantoprazole 40 MG Vial IV SCH ×2 (09:07→21:02)
[2017-01-25] MEDS: Lactated Ringers 1,000 ML IV SCH ×2 (09:26→13:41)
[2017-01-25] MEDS ORDERED: Midazolam 1 MG/ML 2 ML SDV ONE (09:42)
[2017-01-25] MEDS ORDERED: fentaNYL 250 MCG/5 ML SDV ONE (09:42)
[2017-01-25] MEDS ORDERED: Ondansetron 4 MG/2 ML SDV ONE (09:43)
[2017-01-25] MEDS ORDERED: Propofol 200 MG/20 ML SDV ONE (09:43)
[2017-01-25] MEDS ORDERED: Dexamethasone 4 MG/ML SDV ONE (09:43)
[2017-01-25] MEDS ORDERED: Succinylcholine/Normal Saline 200 MG/10 ML Syringe ONE (09:43)
[2017-01-25] MEDS ORDERED: Neostigmine Methylsulfate 1 MG/ML 5 ML Syringe ONE (09:43)
[2017-01-25] MEDS ORDERED: Rocuronium 50 MG/5 ML Vial ONE ×2 (09:43→10:54)
--- NOTE | 2017-01-25 09:45 | US ---
VL Duplex Abd Pel Ret Ltd HISTORY: New ascites on recent CT scan. COMPARISON: CT scan 01/22/2017. FINDINGS: Diffuse ascites in all 4 quadrants. Liver measures 12 cm with increased echogenicity likel y representing some fatty changes no focal liver lesions seen. The portal veins and hepatic veins de monstrate normal direction flow. Common bile duct is normal in caliber. Hepatic artery demonstrates normal waveform. Impression: Normal direction flow of hepatic veins and portal veins.
--- NOTE | 2017-01-25 11:56 | CR ---
Chest 1V Frontal HISTORY: Central line catheter. COMPARISON: CT chest 01/13/2017. FINDINGS: Left-sided central line catheter distal tip overlies the superior vena cava. Right-sided c hest tube. Atelectatic change right lung base. Tiny pneumothorax at the right costophrenic angle. Sm all right apical pneumothorax. No left-sided pneumothorax on the side of the central line catheter.
[2017-01-25] MEDS ORDERED: fentaNYL 100 MCG/2 ML SDV IVPUSH ONE (12:03)
[2017-01-25] MEDS: fentaNYL/Normal Saline 600 MCG/30 ML PCA Vial IV PRN (14:59)
--- NOTE | 2017-01-25 16:57 | PCM.PN ---
- General Info Date of Service: 01/25/17 Functional Status: Reports: pain controlled, tolerating diet - Review of Systems General: Denies: Weakness Gastrointestinal: Reports: Abdominal pain Systems Review Comment:: No acute events overnight. Abdominal pain seems better but has not resolved today. Minimal right sided axillary chest pain despite having surgical intervention yesterday and today. No nausea or vomiting. Did not sleep well. Tolerating clear liquids well last night. Ultrasound of the right upper quadrant revealed normal hepatic blood flow but did show evidence for suspected cirrhosis. - Patient Data Vitals - most recent: Last Vital Signs Temp 36.9 C 01/25/17 16:07 Pulse 79 01/25/17 16:07 Resp 16 01/25/17 16:07 BP 115/77 01/25/17 16:07 Pulse Ox 95 01/25/17 16:07 Weight - most recent: 66.224 kg I&O - last 24 hours: Intake & Output 01/25/17 01/25/17 01/25/17 06:59 14:59 22:59 Intake Total 697 398 Output Total 750 500 Balance -53 -102 Lab Results last 24 hrs: Laboratory Results - last 24 hr 01/24/17 01/25/17 01/25/17 Range/Units 14:43 04:00 04:00 WBC 4.3 L (4.5-11.0) K/uL RBC 4.00 (3.30-5.50) M/uL Hgb 8.7 L (12.0-15.0) g/dL Hct 29.2 L (36.0-48.0) % MCV 73 L (80-98) fL MCH 22 L (27-31) pg MCHC 30 L (32-36) % Plt Count 277 (150-400) K/uL Sodium 144 (140-148) mmol/L Potassium 3.4 L (3.6-5.2) mmol/L Chloride 108 (100-108) mmol/L Carbon Dioxide 27 (21-32) mmol/L Anion Gap 12.4 (5.0-14.0) mmol/L BUN 5 L (7-18) mg/dL Creatinine 0.6 (0.6-1.0) mg/dL Est Cr Clr Drug Dosing 88.93 mL/min Estimated GFR (MDRD) > 60 (>60) Glucose 91 (74-106) mg/dL Calcium 7.4 L (8.5-10.1) mg/dL Phosphorus 4.0 (2.5-4.9) mg/dL Magnesium 1.6 L (1.8-2.4) mg/dL Total Bilirubin 0.6 D (0.2-1.0) mg/dL AST 14 L (15-37) U/L ALT 15 (12-78) U/L Alkaline Phosphatase 61 (46-116) U/L Total Protein 5.1 L (6.4-8.2) g/dL Albumin 2.5 L (3.4-5.0) g/dL Globulin 2.6 (2.3-3.5) g/dL Albumin/Globulin Ratio 1.0 L (1.2-2.2) Blood Type A POSITIVE Gel Antibody Screen Negative Crossmatch See Detail 01/25/17 Range/Units 09:30 WBC (4.5-11.0) K/uL RBC (3.30-5.50) M/uL Hgb 9.8 L (12.0-15.0) g/dL Hct 32.9 L (36.0-48.0) % MCV (80-98) fL MCH (27-31) pg MCHC (32-36) % Plt Count (150-400) K/uL Sodium (140-148) mmol/L Potassium (3.6-5.2) mmol/L Chloride (100-108) mmol/L Carbon Dioxide (21-32) mmol/L Anion Gap (5.0-14.0) mmol/L BUN (7-18) mg/dL Creatinine (0.6-1.0) mg/dL Est Cr Clr Drug Dosing mL/min Estimated GFR (MDRD) (>60) Glucose (74-106) mg/dL Calcium (8.5-10.1) mg/dL Phosphorus (2.5-4.9) mg/dL Magnesium (1.8-2.4) mg/dL Total Bilirubin (0.2-1.0) mg/dL AST (15-37) U/L ALT (12-78) U/L Alkaline Phosphatase (46-116) U/L Total Protein (6.4-8.2) g/dL Albumin (3.4-5.0) g/dL Globulin (2.3-3.5) g/dL Albumin/Globulin Ratio (1.2-2.2) Blood Type Gel Antibody Screen Crossmatch Jarrod Results last 24 hrs: Microbiology 01/25/17 12:08 Gram Stain - Final Lung - Right Lower Lobe 01/25/17 11:08 DIEGO Preparation - Final Other - Lung, Right 01/24/17 14:19 Gram Stain - Final Bronchial Alveolar Lavage - Lung, Right 01/24/17 14:19 DIEGO Preparation - Final Other - Lung, Right 01/24/17 14:19 DIEGO Preparation - Final Other - Lung, Unspecified 01/24/17 13:38 Gram Stain - Final Other - Axilla, Right Med Orders - Current: Current Medications Acetaminophen (Tylenol) 650 mg PO Q6H [facility] Diphenhydramine HCl (Benadryl) 50 mg IV ASDIRECTED PRN PRN Reason: ALLERGIC REACTION Stop: 01/26/17 09:19 Enoxaparin Sodium (Lovenox) 40 mg SUBCUT Q24H [facility] Last Admin: 01/24/17 21:43 Dose: 40 mg Famotidine (Pepcid) 20 mg IV ASDIRECTED PRN PRN Reason: ALLERGIC REACTION Stop: 01/26/17 09:21 Fentanyl Citrate (Fentanyl In Ns 20 Mcg/Ml 30 Ml Oven Stripper) 0 mcg IV ASDIRECTED PRN; Protocol PRN Reason: Pain Last Admin: 01/25/17 14:59 Dose: 600 mcg Hydrocortisone Sodium Succinate (Solu-Cortef) 100 mg IV ASDIRECTED PRN PRN Reason: ALLERGIC REACTION Stop: 01/26/17 09:20 Doxycycline Hyclate 100 mg/ (Sodium Chloride) 100 mls @ 100 mls/hr IV Q12H [facility] Last Admin: 01/25/17 14:50 Dose: 100 mls/hr Lactated Ringer's (Ringers, Lactated) 1,000 mls @ 125 mls/hr IV ASDIRECTED [facility] Last Admin: 01/25/17 13:41 Dose: 125 mls/hr Iron Sucrose 500 mg/ Sodium (Chloride) 275 mls @ 68 mls/hr IV ONETIME ONE Stop: 01/25/17 22:02 Naloxone HCl (Narcan) 0.4 mg IVPUSH Q2M PRN PRN Reason: Respiratory Distress Ondansetron HCl (Zofran) 4 mg IV Q4H PRN PRN Reason: Nausea/Vomiting Last Admin: 01/23/17 20:42 Dose: 4 mg Pantoprazole Sodium (Protonix Iv) 40 mg IV Q12H [facility] Last Admin: 01/25/17 09:07 Dose: 40 mg Sodium Chloride (Saline Flush) 10 ml FLUSH ASDIRECTED PRN PRN Reason: Keep Vein Open Discontinued Medications Bupivacaine HCl (Marcaine 0.5%) Confirm Administered Dose 50 ml .ROUTE .STK-MED ONE Stop: 01/24/17 08:10 Last Admin: 01/24/17 13:09 Dose: 10 ml Bupivacaine HCl/Epinephrine Bitart (Marcaine 0.5%/Epinephrine 1:200,000) Confirm Administered Dose 50 ml .ROUTE .STK-MED ONE Stop: 01/25/17 08:41 Last Admin: 01/25/17 11:19 Dose: 20 ml Cyanocobalamin (Vitamin B12) 1,000 mcg IM ONETIME ONE Stop: 01/24/17 09:01 Last Admin: 01/24/17 10:21 Dose: 1,000 mcg Dexamethasone (Dexamethasone) Confirm Administered Dose 8 mg .ROUTE .STK-MED ONE Stop: 01/25/17 09:44 Enoxaparin Sodium (Lovenox) 40 mg SUBCUT Q24H [facility] Last Admin: 01/23/17 02:21 Dose: 40 mg Fentanyl (Sublimaze) Confirm Administered Dose 100 mcg .ROUTE .STK-MED ONE Stop: 01/24/17 11:42 Fentanyl (Sublimaze) Confirm Administered Dose 250 mcg .ROUTE .STK-MED ONE Stop: 01/25/17 09:43 Fentanyl (Sublimaze) 100 mcg IVPUSH ONETIME ONE Stop: 01/25/17 12:04 Last Admin: 01/25/17 12:09 Dose: 100 mcg Glycopyrrolate () Confirm Administered Dose 1 mg .ROUTE .STK-MED ONE Stop: 01/25/17 09:44 Heparin Sodium (Porcine) (Heparin Lock Flush 100 Units/Ml Syringe) Confirm Administered Dose 500 units .ROUTE .STK-MED ONE Stop: 01/25/17 08:49 Last Admin: 01/25/17 10:28 Dose: 500 units Sodium Chloride (Normal Saline) 1,000 mls @ 999 mls/hr IV ASDIRECTED [facility] Last Admin: 01/22/17 23:20 Dose: 999 mls/hr Sodium Chloride (Normal Saline) 70 mls @ 3 mls/sec IV ASDIRECTED [facility] Last Admin: 01/22/17 22:48 Dose: 3 mls/sec Sodium Chloride (Normal Saline) 1,000 mls @ 999 mls/hr IV ASDIRECTED [facility] Last Admin: 01/22/17 20:50 Dose: 999 mls/hr Iron Sucrose 500 mg/ Sodium (Chloride) 275 mls @ 68 mls/hr IV ONETIME ONE Stop: 01/24/17 22:02 Last Admin: 01/24/17 17:26 Dose: 68 mls/hr Lactated Ringer's (Ringers, Lactated) Confirm Administered Dose 1,000 mls @ as directed .ROUTE .STK-MED ONE Stop: 01/24/17 12:56 Acetaminophen (Ofirmev) Confirm Administered Dose 100 mls @ as directed IV .STK- MED ONE Stop: 01/25/17 11:23 Iopamidol (Isovue-300 (61%)) 100 ml IV . DIRECTED PRN PRN Reason: RADIOLOGY EXAM Stop: 01/23/17 22:09 Last Admin: 01/22/17 22:48 Dose: 100 ml Lidocaine (Lidocaine 4% Top Soln) Confirm Administered Dose 4 ml .ROUTE .STK- MED ONE Stop: 01/24/17 11:43 Lidocaine HCl (Xylocaine 2% Viscous) Confirm Administered Dose 15 ml .ROUTE .STK -MED ONE Stop: 01/24/17 13:03 Last Admin: 01/24/17 13:11 Dose: 15 ml Lidocaine HCl (Xylocaine 4% Top Soln) Confirm Administered Dose 50 ml .ROUTE .STK-MED ONE Stop: 01/24/17 13:03 Last Admin: 01/24/17 13:12 Dose: 50 ml Lidocaine/Epinephrine (Xylocaine 1% With Epinephrine 1:100,000) Confirm Administered Dose 50 ml .ROUTE .STK-MED ONE Stop: 01/24/17 08:10 Last Admin: 01/24/17 13:10 Dose: 10 ml Meperidine HCl (Demerol) 15 mg IVPUSH ONETIME ONE Stop: 01/22/17 20:40 Last Admin: 01/22/17 21:17 Dose: Not Given Midazolam HCl (Versed 1 Mg/Ml) Confirm Administered Dose 2 mg .ROUTE .STK-MED ONE Stop: 01/24/17 11:43 Midazolam HCl (Versed 1 Mg/Ml) Confirm Administered Dose 2 mg .ROUTE .STK-MED ONE Stop: 01/25/17 09:43 Morphine Sulfate (Morphine) 2 mg IVPUSH ONETIME ONE Stop: 01/22/17 21:11 Last Admin: 01/22/17 21:14 Dose: 2 mg Morphine Sulfate (Morphine) 2 mg IVPUSH ONETIME ONE Stop: 01/22/17 23:19 Last Admin: 01/22/17 23:38 Dose: 2 mg Naloxone HCl (Narcan) 0.4 mg IVPUSH Q2M PRN PRN Reason: Respiratory Distress Neostigmine Methylsulfate (Neostigmine) Confirm Administered Dose 5 mg .ROUTE .STK-MED ONE Stop: 01/25/17 09:44 Ondansetron HCl (Zofran) 4 mg IVPUSH ONETIME ONE Stop: 01/22/17 20:40 Last Admin: 01/22/17 21:01 Dose: 4 mg Ondansetron HCl (Zofran) Confirm Administered Dose 4 mg .ROUTE .STK-MED ONE Stop: 01/25/17 09:44 Pantoprazole Sodium (Protonix Iv) 40 mg IV Q12H [facility] Last Admin: 01/23/17 02:22 Dose: 40 mg Propofol (Diprivan 20 Ml) Confirm Administered Dose 200 mg .ROUTE .STK-MED ONE Stop: 01/24/17 11:42 Propofol (Diprivan 20 Ml) Confirm Administered Dose 200 mg .ROUTE .STK-MED ONE Stop: 01/24/17 13:13 Propofol (Diprivan 20 Ml) Confirm Administered Dose 200 mg .ROUTE .STK-MED ONE Stop: 01/24/17 13:42 Propofol (Diprivan 20 Ml) Confirm Administered Dose 200 mg .ROUTE .STK-MED ONE Stop: 01/25/17 09:44 Rocuronium [place] (Zemuron) Confirm Administered Dose 50 mg .ROUTE .STK-MED ONE Stop: 01/25/17 09:44 Rocuronium [place] (Zemuron) Confirm Administered Dose 50 mg .ROUTE .STK-MED ONE Stop: 01/25/17 10:55 Sodium Chloride (Saline Flush) 10 ml FLUSH ONETIME ONE Stop: 01/22/17 22:09 Last Admin: 01/22/17 22:48 Dose: 10 ml Succinylcholine Chloride (Succinylcholine In Ns Pf) Confirm Administered Dose 200 mg .ROUTE .STK-MED ONE Stop: 01/25/17 09:44 - Exam Quality Assessment: supplemental oxygen General: alert, oriented, cooperative, no acute distress Neck: supple Lungs: Normal respiratory effort, Crackles (few right lung base). No: Wheezing Cardiovascular: Regular Rate, Regular Rhythm Abdomen: soft, no distension, tenderness Extremities: no edema, no cyanosis Skin: warm, dry Psy/Mental Status: alert, normal affect - Problem List Review Problem List Initiated/Reviewed/Updated: Yes - Plan Plan:: ASSESSMENT AND PLAN - ABDOMINAL PAIN ASSOCIATED WITH NAUSEA VOMITING AND ASCITES - acute on chronic difficulties. EGD did not reveal significant abnormalities. Ultrasound of the liver showed some evidence for cirrhosis but no vascular issues. This could be a side effect from the doxycycline. -Advance diet as tolerated per surgery -IV fluids for hydration -Fentanyl via [employer] for pain control -Protonix 40 mg IV every 12 hours -Antiemetic therapy as needed -Surgical followup per Dr. Zafar PULMONARY NODULES - indeterminate by CT scan, current plan is to repeat scan in approximately 3 months. She is now status post right thoracotomy and wedge resection. Pathology is pending. HYDRADENITIS - improved on oral antibiotic therapy, doing quite well with minimal pain after surgical intervention yesterday. -Surgical followup as per Dr. Zafar -Doxycycline 100 mg IV every 12 hours while n.p.o. STATUS POST RUTH-EN-Y GASTRIC BYPASS SURGERY MAINTENANCE ISSUES -DVT prophylaxis; Lovenox 40 mg subcutaneous daily -GI prophylaxis; Protonix as above -Ward catheter; not indicated -Nutrition; advance diet as tolerated per surgery DISPOSITION - anticipate discharge to home after the hospital stay. Michael Barker M.D.
[2017-01-25] MEDS: Acetaminophen 325 MG Tab PO SCH ×2 (17:33→23:26)
[2017-01-25] MEDS ORDERED: Iron Sucrose Complex 500 MG in Sodium Chloride 0.9% 250 ML IV ONE (18:00)
[2017-01-25] MEDS: Enoxaparin 40 MG/0.4 ML Syringe SUBCUT SCH (20:55)
[2017-01-26] MEDS: Doxycycline 100 MG in Sodium Chloride 0.9% 100 ML IV SCH ×2 (02:51→14:33)
[2017-01-26] MEDS: Lactated Ringers 1,000 ML IV SCH ×2 (02:51→12:25)
[2017-01-26] MEDS: Acetaminophen 325 MG Tab PO SCH ×4 (04:34→22:36)
[2017-01-26] MEDS: fentaNYL/Normal Saline 600 MCG/30 ML PCA Vial IV PRN ×2 (05:15→16:47)
--- NOTE | 2017-01-26 08:43 | PN ---
DATE OF SERVICE: 01/26/2017 SUBJECTIVE: Rocio is postop day #1. Yesterday, she has received 2 units of packed red blood cells and she finished her last unit yesterday prior to surgery, and she received Venofer 500 mg IV in 2 doses finishing her second dose yesterday. She reports her pain is controlled. She has been up ambulating and chest tube put out 80 mL of a light pink drainage. REVIEW OF SYSTEMS: Remainder of review of systems negative for any pertinent positives and negatives. OBJECTIVE: GENERAL: Rocio Wren is a 51-year-old female. She is alert, orientated, and sitting up in bed. VITAL SIGNS: TPR 97.8, 61, 16, blood pressure 91/58, O2 saturations by pulse ox are 93% on 2 L. HEENT: Negative. NECK: Supple. HEART: Regular rate and rhythm. LUNGS: Reveal decreased breath sounds bilaterally. There is some wheezing noted. Right lower lobe with normal breath sounds. Dressing is dry and intact. ABDOMEN: Small amount of ascites is noted. EXTREMITIES: Without peripheral edema. ASSESSMENT: Right thoracoscopy with right segment of the right lower lobe removed, wedge biopsy of medial bronchial segment of right lower lobe, mediastinal lymph node biopsy, and insertion of Parr catheter left subclavian vein for multiple pulmonary nodules and limited peripheral venous access on 01/25/2017. PLAN: 1. Call results of the microbiology from lungs. 2. Decrease IV to 80 mL/hour. 3. Good pulmonary function. 4. We will evaluate p.r.n. or in a.m. Shweta Newby PA-C /[id number]
[2017-01-26] MEDS: Pantoprazole 40 MG Vial IV SCH (09:39)
--- NOTE | 2017-01-26 10:00 | CR ---
Chest 1V Frontal HISTORY: Chest tube post thoracotomy COMPARISON: Prior chest radiograph 01/25/2017. FINDINGS: Small right apical pneumothorax slightly improved from prior study. There is a skin fold n oted along the peripheral margin of the right lower hemithorax. Left-sided central line. No left-emma ed pneumothorax or infiltrate.
--- NOTE | 2017-01-26 10:32 | PCM.PN ---
- General Info Date of Service: 01/26/17 Functional Status: Reports: pain controlled, tolerating diet - Review of Systems General: Denies: Fever Pulmonary: Denies: shortness of breath Gastrointestinal: Reports: Abdominal pain Systems Review Comment:: No acute events overnight. Pain has been fairly well-controlled. No fevers overnight. Does require some supplemental oxygen. Chest tube drainage has been 80 ml since admission and 60 mL since 4:30 this morning, approximately 6 hours. Mild right upper quadrant abdominal pain but no nausea or vomiting. - Patient Data Vitals - most recent: Last Vital Signs Temp 36.2 C 01/26/17 07:21 Pulse 60 01/26/17 07:21 Resp 16 01/26/17 07:21 BP 97/59 L 01/26/17 07:21 Pulse Ox 90 L 01/26/17 07:36 Weight - most recent: 66.224 kg I&O - last 24 hours: Intake & Output 01/25/17 01/26/17 01/26/17 22:59 06:59 14:59 Intake Total 823 2808 960 Output Total 1100 680 600 Balance -277 2128 360 Lab Results last 24 hrs: Laboratory Results - last 24 hr 01/26/17 01/26/17 Range/Units 04:00 04:00 WBC 8.5 (4.5-11.0) K/uL RBC 4.13 (3.30-5.50) M/uL Hgb 9.0 L (12.0-15.0) g/dL Hct 30.2 L (36.0-48.0) % MCV 73 L (80-98) fL MCH 22 L (27-31) pg MCHC 30 L (32-36) % Plt Count 271 (150-400) K/uL Sodium 142 (140-148) mmol/L Potassium 3.6 (3.6-5.2) mmol/L Chloride 107 (100-108) mmol/L Carbon Dioxide 27 (21-32) mmol/L Anion Gap 8.1 (5.0-14.0) mmol/L BUN 5 L (7-18) mg/dL Creatinine 0.6 (0.6-1.0) mg/dL Est Cr Clr Drug Dosing 88.93 mL/min Estimated GFR (MDRD) > 60 (>60) Glucose 102 (74-106) mg/dL Calcium 7.6 L (8.5-10.1) mg/dL Phosphorus 3.5 (2.5-4.9) mg/dL Magnesium 1.6 L (1.8-2.4) mg/dL Total Bilirubin 0.5 (0.2-1.0) mg/dL AST 25 D (15-37) U/L ALT 17 (12-78) U/L Alkaline Phosphatase 56 (46-116) U/L Total Protein 5.2 L (6.4-8.2) g/dL Albumin 2.5 L (3.4-5.0) g/dL Globulin 2.7 (2.3-3.5) g/dL Albumin/Globulin Ratio 0.9 L (1.2-2.2) Jarrod Results last 24 hrs: Microbiology 01/25/17 12:08 Gram Stain - Final Lung - Right Lower Lobe Wound Culture - Preliminary NO GROWTH AFTER 1 DAY 01/24/17 14:19 Gram Stain - Final Bronchial Alveolar Lavage - Lung, Right Respiratory Culture - Preliminary NORMAL RESPIRATORY AXEL 1 DAY 01/24/17 13:38 Gram Stain - Final Other - Axilla, Right Wound Culture - Preliminary NO GROWTH AFTER 1 DAY Anaerobic Culture - Preliminary NO GROWTH AFTER 1 DAY 01/25/17 11:08 DIEGO Preparation - Final Other - Lung, Right Med Orders - Current: Current Medications Acetaminophen (Tylenol) 650 mg PO Q6H [facility] Last Admin: 01/26/17 04:34 Dose: 650 mg Enoxaparin Sodium (Lovenox) 40 mg SUBCUT Q24H [facility] Last Admin: 01/25/17 20:55 Dose: 40 mg Fentanyl Citrate (Fentanyl In Ns 20 Mcg/Ml 30 Ml [employer]) 0 mcg IV ASDIRECTED PRN; Protocol PRN Reason: Pain Last Admin: 01/26/17 05:15 Dose: 600 mcg Heparin Sodium (Porcine) (Heparin Lock Flush 100 Units/Ml Syringe) 500 units FLUSH ASDIRECTED PRN PRN Reason: IV Use Doxycycline Hyclate 100 mg/ (Sodium Chloride) 100 mls @ 100 mls/hr IV Q12H [facility] Last Admin: 01/26/17 02:51 Dose: 100 mls/hr Lactated Ringer's (Ringers, Lactated) 1,000 mls @ 80 mls/hr IV ASDIRECTED [facility] Last Admin: 01/26/17 02:51 Dose: 125 mls/hr Naloxone HCl (Narcan) 0.4 mg IVPUSH Q2M PRN PRN Reason: Respiratory Distress Ondansetron HCl (Zofran) 4 mg IV Q4H PRN PRN Reason: Nausea/Vomiting Last Admin: 01/23/17 20:42 Dose: 4 mg Sodium Chloride (Saline Flush) 10 ml FLUSH ASDIRECTED PRN PRN Reason: Keep Vein Open Discontinued Medications Bupivacaine HCl (Marcaine 0.5%) Confirm Administered Dose 50 ml .ROUTE .STK-MED ONE Stop: 01/24/17 08:10 Last Admin: 01/24/17 13:09 Dose: 10 ml Bupivacaine HCl/Epinephrine Bitart (Marcaine 0.5%/Epinephrine 1:200,000) Confirm Administered Dose 50 ml .ROUTE .STK-MED ONE Stop: 01/25/17 08:41 Last Admin: 01/25/17 11:19 Dose: 20 ml Cyanocobalamin (Vitamin B12) 1,000 mcg IM ONETIME ONE Stop: 01/24/17 09:01 Last Admin: 01/24/17 10:21 Dose: 1,000 mcg Dexamethasone (Dexamethasone) Confirm Administered Dose 8 mg .ROUTE .STK-MED ONE Stop: 01/25/17 09:44 Diphenhydramine HCl (Benadryl) 50 mg IV ASDIRECTED PRN PRN Reason: ALLERGIC REACTION Stop: 01/26/17 09:19 Enoxaparin Sodium (Lovenox) 40 mg SUBCUT Q24H [facility] Last Admin: 01/23/17 02:21 Dose: 40 mg Famotidine (Pepcid) 20 mg IV ASDIRECTED PRN PRN Reason: ALLERGIC REACTION Stop: 01/26/17 09:21 Fentanyl (Sublimaze) Confirm Administered Dose 100 mcg .ROUTE .STK-MED ONE Stop: 01/24/17 11:42 Fentanyl (Sublimaze) Confirm Administered Dose 250 mcg .ROUTE .STK-MED ONE Stop: 01/25/17 09:43 Fentanyl (Sublimaze) 100 mcg IVPUSH ONETIME ONE Stop: 01/25/17 12:04 Last Admin: 01/25/17 12:09 Dose: 100 mcg Glycopyrrolate () Confirm Administered Dose 1 mg .ROUTE .STK-MED ONE Stop: 01/25/17 09:44 Heparin Sodium (Porcine) (Heparin Lock Flush 100 Units/Ml Syringe) Confirm Administered Dose 500 units .ROUTE .[facility]-MED ONE Stop: 01/25/17 08:49 Last Admin: 01/25/17 10:28 Dose: 500 units Heparin Sodium (Porcine) (Heparin Lock Flush 100 Units/Ml Syringe) Confirm Administered Dose 500 units .ROUTE .[facility]-MED ONE Stop: 01/26/17 08:12 Last Admin: 01/26/17 08:12 Dose: Not Given Hydrocortisone Sodium Succinate (Solu-Cortef) 100 mg IV ASDIRECTED PRN PRN Reason: ALLERGIC REACTION Stop: 01/26/17 09:20 Sodium Chloride (Normal Saline) 1,000 mls @ 999 mls/hr IV ASDIRECTED [facility] Last Admin: 01/22/17 23:20 Dose: 999 mls/hr Sodium Chloride (Normal Saline) 70 mls @ 3 mls/sec IV ASDIRECTED [facility] Last Admin: 01/22/17 22:48 Dose: 3 mls/sec Sodium Chloride (Normal Saline) 1,000 mls @ 999 mls/hr IV ASDIRECTED [facility] Last Admin: 01/22/17 20:50 Dose: 999 mls/hr Iron Sucrose 500 mg/ Sodium (Chloride) 275 mls @ 68 mls/hr IV ONETIME ONE Stop: 01/24/17 22:02 Last Admin: 01/24/17 17:26 Dose: 68 mls/hr Iron Sucrose 500 mg/ Sodium (Chloride) 275 mls @ 68 mls/hr IV ONETIME ONE Stop: 01/25/17 22:02 Last Admin: 01/25/17 17:34 Dose: 68 mls/hr Lactated Ringer's (Ringers, Lactated) Confirm Administered Dose 1,000 mls @ as directed .ROUTE .[facility]-MED ONE Stop: 01/24/17 12:56 Acetaminophen (Ofirmev) Confirm Administered Dose 100 mls @ as directed IV .[facility]- MED ONE Stop: 01/25/17 11:23 Iopamidol (Isovue-300 (61%)) 100 ml IV . DIRECTED PRN PRN Reason: RADIOLOGY EXAM Stop: 01/23/17 22:09 Last Admin: 01/22/17 22:48 Dose: 100 ml Lidocaine (Lidocaine 4% Top Soln) Confirm Administered Dose 4 ml .ROUTE .STK- MED ONE Stop: 01/24/17 11:43 Lidocaine HCl (Xylocaine 2% Viscous) Confirm Administered Dose 15 ml .ROUTE .STK -MED ONE Stop: 01/24/17 13:03 Last Admin: 01/24/17 13:11 Dose: 15 ml Lidocaine HCl (Xylocaine 4% Top Soln) Confirm Administered Dose 50 ml .ROUTE .STK-MED ONE Stop: 01/24/17 13:03 Last Admin: 01/24/17 13:12 Dose: 50 ml Lidocaine/Epinephrine (Xylocaine 1% With Epinephrine 1:100,000) Confirm Administered Dose 50 ml .ROUTE .STK-MED ONE Stop: 01/24/17 08:10 Last Admin: 01/24/17 13:10 Dose: 10 ml Meperidine HCl (Demerol) 15 mg IVPUSH ONETIME ONE Stop: 01/22/17 20:40 Last Admin: 01/22/17 21:17 Dose: Not Given Midazolam HCl (Versed 1 Mg/Ml) Confirm Administered Dose 2 mg .ROUTE .STK-MED ONE Stop: 01/24/17 11:43 Midazolam HCl (Versed 1 Mg/Ml) Confirm Administered Dose 2 mg .ROUTE .STK-MED ONE Stop: 01/25/17 09:43 Morphine Sulfate (Morphine) 2 mg IVPUSH ONETIME ONE Stop: 01/22/17 21:11 Last Admin: 01/22/17 21:14 Dose: 2 mg Morphine Sulfate (Morphine) 2 mg IVPUSH ONETIME ONE Stop: 01/22/17 23:19 Last Admin: 01/22/17 23:38 Dose: 2 mg Naloxone HCl (Narcan) 0.4 mg IVPUSH Q2M PRN PRN Reason: Respiratory Distress Neostigmine Methylsulfate (Neostigmine) Confirm Administered Dose 5 mg .ROUTE .STK-MED ONE Stop: 01/25/17 09:44 Ondansetron HCl (Zofran) 4 mg IVPUSH ONETIME ONE Stop: 01/22/17 20:40 Last Admin: 01/22/17 21:01 Dose: 4 mg Ondansetron HCl (Zofran) Confirm Administered Dose 4 mg .ROUTE .STK-MED ONE Stop: 01/25/17 09:44 Pantoprazole Sodium (Protonix Iv) 40 mg IV Q12H [facility] Last Admin: 01/23/17 02:22 Dose: 40 mg Pantoprazole Sodium (Protonix Iv) 40 mg IV Q12H [facility] Last Admin: 01/26/17 09:39 Dose: 40 mg Propofol (Diprivan 20 Ml) Confirm Administered Dose 200 mg .ROUTE .STK-MED ONE Stop: 01/24/17 11:42 Propofol (Diprivan 20 Ml) Confirm Administered Dose 200 mg .ROUTE .STK-MED ONE Stop: 01/24/17 13:13 Propofol (Diprivan 20 Ml) Confirm Administered Dose 200 mg .ROUTE .STK-MED ONE Stop: 01/24/17 13:42 Propofol (Diprivan 20 Ml) Confirm Administered Dose 200 mg .ROUTE .STK-MED ONE Stop: 01/25/17 09:44 Rocuronium [place] (Zem[place]) Confirm Administered Dose 50 mg .ROUTE .STK-MED ONE Stop: 01/25/17 09:44 Rocuronium [place] (Zem[place]) Confirm Administered Dose 50 mg .ROUTE .STK-MED ONE Stop: 01/25/17 10:55 Sodium Chloride (Saline Flush) 10 ml FLUSH ONETIME ONE Stop: 01/22/17 22:09 Last Admin: 01/22/17 22:48 Dose: 10 ml Succinylcholine Chloride (Succinylcholine In Ns Pf) Confirm Administered Dose 200 mg .ROUTE .STK-MED ONE Stop: 01/25/17 09:44 - Exam Quality Assessment: supplemental oxygen General: alert, oriented, cooperative Neck: supple Lungs: Normal respiratory effort Cardiovascular: Regular Rate, Regular Rhythm Abdomen: soft, no distension, tenderness Extremities: no edema, no cyanosis Skin: warm, dry Wound/Incisions: healing well (right axilla), no drainage Psy/Mental Status: alert, normal affect - Problem List Review Problem List Initiated/Reviewed/Updated: Yes - My Orders Last 24 Hours: My Active Orders 01/26/17 08:11 Heparin Sodium [Heparin Lock Flush 100 Units/ML Syringe] 500 units FLUSH ASDIRECTED PRN 01/26/17 10:30 Magnesium Sulfate/Water [Magnesium Sulfate 2 GM in Water 50 ML] 2 gm Premix Bag 1 bag IV Q6H 01/27/17 05:00 BASIC METABOLIC PANEL,BMP [CHEM] Timed CBC W/O DIFF,HEMOGRAM [HEME] Timed (1) 01/27/17 07:30 Pantoprazole [Protonix] 40 mg PO ACBREAKFAST - Plan Plan:: ASSESSMENT AND PLAN - ABDOMINAL PAIN ASSOCIATED WITH NAUSEA VOMITING AND ASCITES - acute on chronic difficulties. EGD did not reveal significant abnormalities. Ultrasound of the liver showed some evidence for cirrhosis but no vascular issues. This could be a side effect from the doxycycline. Seems to be improving but no obvious cause. -Advance diet as tolerated per surgery -Gentle IV fluids for hydration -Fentanyl via FUSELAGE FRAMER for pain control -Protonix 40 mg IV every 12 hours -Antiemetic therapy as needed -Surgical followup per Dr. Zafar PULMONARY NODULES - indeterminate by CT scan, current plan is to repeat scan in approximately 3 months. She is now status post right thoracotomy and wedge resection. -Followup pathology HYDRADENITIS - improved on oral antibiotic therapy, doing quite well with minimal pain after surgical intervention yesterday. -Surgical followup as per Dr. Zafar -Followup pathology -Doxycycline 100 mg IV every 12 hours while n.p.o. STATUS POST RUTH-[facility]-Y GASTRIC BYPASS SURGERY MAINTENANCE ISSUES -DVT prophylaxis; Lovenox 40 mg subcutaneous daily -GI prophylaxis; Protonix as above -Ward catheter; not indicated -Nutrition; advance diet as tolerated per surgery DISPOSITION - anticipate discharge to home after the hospital stay. Michael Barker M.D.
[2017-01-26] MEDS: Magnesium Sulfate/Water 2 GM in Premix Bag 1 BAG IV SCH ×2 (11:29→16:47)
[2017-01-26] MEDS: Enoxaparin 40 MG/0.4 ML Syringe SUBCUT SCH (21:05)
[2017-01-27] MEDS: Lactated Ringers 1,000 ML IV SCH (01:46)
[2017-01-27] MEDS: Doxycycline 100 MG in Sodium Chloride 0.9% 100 ML IV SCH ×2 (01:46→13:43)
[2017-01-27] MEDS: fentaNYL/Normal Saline 600 MCG/30 ML PCA Vial IV PRN ×2 (03:34→13:20)
[2017-01-27] MEDS: Acetaminophen 325 MG Tab PO SCH ×4 (05:53→23:27)
[2017-01-27] MEDS: Pantoprazole 40 MG Tab.CR PO SCH (07:44)
[2017-01-27] MEDS ORDERED: Magnesium Hydroxide 400 MG/5 ML Susp 30 ML Cup PO ONE (09:00)
--- NOTE | 2017-01-27 09:20 | CR ---
Chest 1V Frontal HISTORY: Chest tube COMPARISON: Chest x-ray 01/26/2017. FINDINGS: Right-sided chest tube unchanged. The right-sided pneumothorax has slightly decreased in s ize. There is left-sided central line in good position. Minimal atelectatic change medial right lung base. No new infiltrates.
[2017-01-27] MEDS: Docusate Sodium 100 MG Cap PO SCH (09:58)
[2017-01-27] MEDS: Bisacodyl 5 MG Tab PO SCH ×2 (09:58→20:44)
--- NOTE | 2017-01-27 10:01 | PN ---
DATE OF SERVICE: 01/27/2017 SUBJECTIVE: Rocio'faiza pain is controlled. The chest tube put out a total of 230. Her central line is positional. Last BM was 01/22/2017. She has been up ambulating, and oral intake was 2400. REVIEW OF SYSTEMS: Remainder of review of systems negative for any pertinent positives or negatives. OBJECTIVE: GENERAL: Rocio Wren is a 51-year-old female. She is alert and orientated. VITAL SIGNS: TPR 97.3, 61, 16, blood pressure 86/56. HEENT: Negative. NECK: Supple. HEART: Regular rate and rhythm. LUNGS: Right chest tube dressing is dry and intact. Decreased breath sounds on the right. Left is negative. ABDOMEN: Tenderness is in the right upper quadrant. EXTREMITIES: Without peripheral edema. SCDs are on. ASSESSMENT: 1. Right thoracoscopy with right segment of the right lobe removed. Wedge biopsy of medial bronchial segment of the right lower lobe. Mediastinal lymph node biopsy. Insertion of Parr catheter, left subclavian vein for multiple pulmonary nodules and limited peripheral venous access on 01/25/2017. 2. Excision of right axillary mass with frozen section. Gastroscopy and bronchoscopy with washings. Pulmonary nodule, right axillary lesion. Abdominal pain, nausea and vomiting. Date of procedure 01/24/2017. 3. Anemia of 8.1, requiring 2 units of packed red blood cells. 4. Ferritin of 5 and received 2 doses of Venofer 500 mg IV. PLAN: 1. Prescribed Dulcolax 10 mg 2 tabs two b.i.d. until BM. 2. Milk of magnesia 30 mL. 3. Colace 100 mg b.i.d. p.o. 4. Daily chest tube dressing changes. 5. Shower. 6. Continue FILLER WIPER for pain control until chest tube is discontinued. Shweta Newby PA-C /[phone]
[2017-01-27] MEDS ORDERED: Lactated Ringers 1,000 ML IV SCH (10:33)
--- NOTE | 2017-01-27 10:41 | PCM.PN ---
- General Info Date of Service: 01/27/17 Functional Status: Reports: pain controlled, tolerating diet - Review of Systems Gastrointestinal: Reports: Abdominal pain Systems Review Comment:: No acute events overnight. Abdominal pain has continued to improve but has not resolved. Minimal pain on the right side of her chest where the chest tube was inserted. No fevers overnight. No bowel movement as of this morning. She has been up and walking around. Pathology is still pending. - Patient Data Vitals - most recent: Last Vital Signs Temp 36.4 C 01/27/17 07:28 Pulse 59 L 01/27/17 07:28 Resp 16 01/27/17 07:28 BP 79/46 L 01/27/17 07:28 Pulse Ox 92 L 01/27/17 07:28 Weight - most recent: 66.224 kg I&O - last 24 hours: Intake & Output 01/26/17 01/27/17 01/27/17 22:59 06:59 14:59 Intake Total 1304 1892 Output Total 1300 1130 200 Balance 4 762 -200 Lab Results last 24 hrs: Laboratory Results - last 24 hr 01/27/17 01/27/17 Range/Units 04:32 04:32 WBC 5.3 (4.5-11.0) K/uL RBC 4.32 (3.30-5.50) M/uL Hgb 9.5 L (12.0-15.0) g/dL Hct 31.6 L (36.0-48.0) % MCV 73 L (80-98) fL MCH 22 L (27-31) pg MCHC 30 L (32-36) % Plt Count 277 (150-400) K/uL Sodium 140 (140-148) mmol/L Potassium 3.6 (3.6-5.2) mmol/L Chloride 105 (100-108) mmol/L Carbon Dioxide 27 (21-32) mmol/L Anion Gap 7.7 (5.0-14.0) mmol/L BUN 7 (7-18) mg/dL Creatinine 0.6 (0.6-1.0) mg/dL Est Cr Clr Drug Dosing 88.93 mL/min Estimated GFR (MDRD) > 60 (>60) Glucose 104 (74-106) mg/dL Calcium 7.7 L (8.5-10.1) mg/dL Jarrod Results last 24 hrs: Microbiology 01/24/17 14:19 Specimen Source - Preliminary Bronchial Alveolar Lavage - Lung, Right Acid Fast Bacilli Smear - Preliminary 01/24/17 14:19 Specimen Source - Preliminary Bronchial Washings - Lung, Unspecified Acid Fast Bacilli Smear - Preliminary 01/25/17 12:12 Specimen Source - Preliminary Lung - Right Lower Lobe Acid Fast Bacilli Smear - Preliminary 01/24/17 13:38 Specimen Source - Preliminary Other - Axilla, Right Acid Fast Bacilli Smear - Preliminary 01/25/17 12:08 Gram Stain - Final Lung - Right Lower Lobe Wound Culture - Preliminary NO GROWTH AFTER 2 DAYS 01/24/17 13:38 Gram Stain - Final Other - Axilla, Right Wound Culture - Preliminary NO GROWTH AFTER 2 DAYS Anaerobic Culture - Preliminary NO GROWTH AFTER 2 DAYS 01/24/17 14:19 Gram Stain - Final Bronchial Alveolar Lavage - Lung, Right Respiratory Culture - Final NORMAL RESPIRATORY AXEL 2 DAYS Med Orders - Current: Current Medications Acetaminophen (Tylenol) 650 mg PO Q6H [facility] Last Admin: 01/27/17 05:53 Dose: 650 mg Bisacodyl (Dulcolax) 20 mg PO BID [facility] Last Admin: 01/27/17 09:58 Dose: 20 mg Docusate Sodium (Colace) 100 mg PO DAILY [facility] Last Admin: 01/27/17 09:58 Dose: 100 mg Enoxaparin Sodium (Lovenox) 40 mg SUBCUT Q24H [facility] Last Admin: 01/26/17 21:05 Dose: 40 mg Fentanyl Citrate (Fentanyl In Ns 20 Mcg/Ml 30 Ml Cut File Clerk) 0 mcg IV ASDIRECTED PRN; Protocol PRN Reason: Pain Last Admin: 01/27/17 03:34 Dose: 600 mcg Heparin Sodium (Porcine) (Heparin Lock Flush 100 Units/Ml Syringe) 500 units FLUSH ASDIRECTED PRN PRN Reason: IV Use Last Admin: 01/26/17 08:15 Dose: 500 units Doxycycline Hyclate 100 mg/ (Sodium Chloride) 100 mls @ 100 mls/hr IV Q12H [facility] Last Admin: 01/27/17 01:46 Dose: 100 mls/hr Lactated Ringer's (Ringers, Lactated) 1,000 mls @ 25 mls/hr IV ASDIRECTED [facility] Naloxone HCl (Narcan) 0.4 mg IVPUSH Q2M PRN PRN Reason: Respiratory Distress Ondansetron HCl (Zofran) 4 mg IV Q4H PRN PRN Reason: Nausea/Vomiting Last Admin: 01/23/17 20:42 Dose: 4 mg Pantoprazole Sodium (Protonix) 40 mg PO ACBREAKFAST [facility] Last Admin: 01/27/17 07:44 Dose: 40 mg Sodium Chloride (Saline Flush) 10 ml FLUSH ASDIRECTED PRN PRN Reason: Keep Vein Open Discontinued Medications Bupivacaine HCl (Marcaine 0.5%) Confirm Administered Dose 50 ml .ROUTE .STK-MED ONE Stop: 01/24/17 08:10 Last Admin: 01/24/17 13:09 Dose: 10 ml Bupivacaine HCl/Epinephrine Bitart (Marcaine 0.5%/Epinephrine 1:200,000) Confirm Administered Dose 50 ml .ROUTE .STK-MED ONE Stop: 01/25/17 08:41 Last Admin: 01/25/17 11:19 Dose: 20 ml Cyanocobalamin (Vitamin B12) 1,000 mcg IM ONETIME ONE Stop: 01/24/17 09:01 Last Admin: 01/24/17 10:21 Dose: 1,000 mcg Dexamethasone (Dexamethasone) Confirm Administered Dose 8 mg .ROUTE .STK-MED ONE Stop: 01/25/17 09:44 Diphenhydramine HCl (Benadryl) 50 mg IV ASDIRECTED PRN PRN Reason: ALLERGIC REACTION Stop: 01/26/17 09:19 Enoxaparin Sodium (Lovenox) 40 mg SUBCUT Q24H [facility] Last Admin: 01/23/17 02:21 Dose: 40 mg Famotidine (Pepcid) 20 mg IV ASDIRECTED PRN PRN Reason: ALLERGIC REACTION Stop: 01/26/17 09:21 Fentanyl (Sublimaze) Confirm Administered Dose 100 mcg .ROUTE .STK-MED ONE Stop: 01/24/17 11:42 Fentanyl (Sublimaze) Confirm Administered Dose 250 mcg .ROUTE .STK-MED ONE Stop: 01/25/17 09:43 Fentanyl (Sublimaze) 100 mcg IVPUSH ONETIME ONE Stop: 01/25/17 12:04 Last Admin: 01/25/17 12:09 Dose: 100 mcg Glycopyrrolate () Confirm Administered Dose 1 mg .ROUTE .STK-MED ONE Stop: 01/25/17 09:44 Heparin Sodium (Porcine) (Heparin Lock Flush 100 Units/Ml Syringe) Confirm Administered Dose 500 units .ROUTE .[facility] ONE Stop: 01/25/17 08:49 Last Admin: 01/25/17 10:28 Dose: 500 units Heparin Sodium (Porcine) (Heparin Lock Flush 100 Units/Ml Syringe) Confirm Administered Dose 500 units .ROUTE .[facility] ONE Stop: 01/26/17 08:12 Last Admin: 01/26/17 08:12 Dose: Not Given Hydrocortisone Sodium Succinate (Solu-Cortef) 100 mg IV ASDIRECTED PRN PRN Reason: ALLERGIC REACTION Stop: 01/26/17 09:20 Sodium Chloride (Normal Saline) 1,000 mls @ 999 mls/hr IV ASDIRECTED [facility] Last Admin: 01/22/17 23:20 Dose: 999 mls/hr Sodium Chloride (Normal Saline) 70 mls @ 3 mls/sec IV ASDIRECTED [facility] Last Admin: 01/22/17 22:48 Dose: 3 mls/sec Sodium Chloride (Normal Saline) 1,000 mls @ 999 mls/hr IV ASDIRECTED [facility] Last Admin: 01/22/17 20:50 Dose: 999 mls/hr Lactated Ringer's (Ringers, Lactated) 1,000 mls @ 80 mls/hr IV ASDIRECTED [facility] Last Admin: 01/27/17 01:46 Dose: 125 mls/hr Iron Sucrose 500 mg/ Sodium (Chloride) 275 mls @ 68 mls/hr IV ONETIME ONE Stop: 01/24/17 22:02 Last Admin: 01/24/17 17:26 Dose: 68 mls/hr Iron Sucrose 500 mg/ Sodium (Chloride) 275 mls @ 68 mls/hr IV ONETIME ONE Stop: 01/25/17 22:02 Last Admin: 01/25/17 17:34 Dose: 68 mls/hr Lactated Ringer's (Ringers, Lactated) Confirm Administered Dose 1,000 mls @ as directed .ROUTE .[facility] ONE Stop: 01/24/17 12:56 Acetaminophen (Ofirmev) Confirm Administered Dose 100 mls @ as directed IV .[facility] ONE Stop: 01/25/17 11:23 Magnesium Sulfate 2 gm/ Premix 50 mls @ 25 mls/hr IV Q6H [facility] Stop: 01/26/17 18:59 Last Admin: 01/26/17 16:47 Dose: 25 mls/hr Iopamidol (Isovue-300 (61%)) 100 ml IV . DIRECTED PRN PRN Reason: RADIOLOGY EXAM Stop: 01/23/17 22:09 Last Admin: 01/22/17 22:48 Dose: 100 ml Lidocaine (Lidocaine 4% Top Soln) Confirm Administered Dose 4 ml .ROUTE .STK- MED ONE Stop: 01/24/17 11:43 Lidocaine HCl (Xylocaine 2% Viscous) Confirm Administered Dose 15 ml .ROUTE .STK -MED ONE Stop: 01/24/17 13:03 Last Admin: 01/24/17 13:11 Dose: 15 ml Lidocaine HCl (Xylocaine 4% Top Soln) Confirm Administered Dose 50 ml .ROUTE .STK-MED ONE Stop: 01/24/17 13:03 Last Admin: 01/24/17 13:12 Dose: 50 ml Lidocaine/Epinephrine (Xylocaine 1% With Epinephrine 1:100,000) Confirm Administered Dose 50 ml .ROUTE .STK-MED ONE Stop: 01/24/17 08:10 Last Admin: 01/24/17 13:10 Dose: 10 ml Magnesium Hydroxide (Milk Of Magnesia) 30 ml PO ONETIME ONE Stop: 01/27/17 09:01 Last Admin: 01/27/17 09:59 Dose: 30 ml Meperidine HCl (Demerol) 15 mg IVPUSH ONETIME ONE Stop: 01/22/17 20:40 Last Admin: 01/22/17 21:17 Dose: Not Given Midazolam HCl (Versed 1 Mg/Ml) Confirm Administered Dose 2 mg .ROUTE .STK-MED ONE Stop: 01/24/17 11:43 Midazolam HCl (Versed 1 Mg/Ml) Confirm Administered Dose 2 mg .ROUTE .STK-MED ONE Stop: 01/25/17 09:43 Morphine Sulfate (Morphine) 2 mg IVPUSH ONETIME ONE Stop: 01/22/17 21:11 Last Admin: 01/22/17 21:14 Dose: 2 mg Morphine Sulfate (Morphine) 2 mg IVPUSH ONETIME ONE Stop: 01/22/17 23:19 Last Admin: 01/22/17 23:38 Dose: 2 mg Naloxone HCl (Narcan) 0.4 mg IVPUSH Q2M PRN PRN Reason: Respiratory Distress Neostigmine Methylsulfate (Neostigmine) Confirm Administered Dose 5 mg .ROUTE .STK-MED ONE Stop: 01/25/17 09:44 Ondansetron HCl (Zofran) 4 mg IVPUSH ONETIME ONE Stop: 01/22/17 20:40 Last Admin: 01/22/17 21:01 Dose: 4 mg Ondansetron HCl (Zofran) Confirm Administered Dose 4 mg .ROUTE .STK-MED ONE Stop: 01/25/17 09:44 Pantoprazole Sodium (Protonix Iv) 40 mg IV Q12H [facility] Last Admin: 01/23/17 02:22 Dose: 40 mg Pantoprazole Sodium (Protonix Iv) 40 mg IV Q12H [facility] Last Admin: 01/26/17 09:39 Dose: 40 mg Propofol (Diprivan 20 Ml) Confirm Administered Dose 200 mg .ROUTE .STK-MED ONE Stop: 01/24/17 11:42 Propofol (Diprivan 20 Ml) Confirm Administered Dose 200 mg .ROUTE .STK-MED ONE Stop: 01/24/17 13:13 Propofol (Diprivan 20 Ml) Confirm Administered Dose 200 mg .ROUTE .STK-MED ONE Stop: 01/24/17 13:42 Propofol (Diprivan 20 Ml) Confirm Administered Dose 200 mg .ROUTE .STK-MED ONE Stop: 01/25/17 09:44 Rocuronium [place] (Zemuron) Confirm Administered Dose 50 mg .ROUTE .STK-MED ONE Stop: 01/25/17 09:44 Rocuronium [place] (Zemuron) Confirm Administered Dose 50 mg .ROUTE .STK-MED ONE Stop: 01/25/17 10:55 Sodium Chloride (Saline Flush) 10 ml FLUSH ONETIME ONE Stop: 01/22/17 22:09 Last Admin: 01/22/17 22:48 Dose: 10 ml Succinylcholine Chloride (Succinylcholine In Ns Pf) Confirm Administered Dose 200 mg .ROUTE .STK-MED ONE Stop: 01/25/17 09:44 - Exam Quality Assessment: No: supplemental oxygen General: alert, oriented, cooperative, no acute distress Neck: supple Lungs: Normal respiratory effort Abdomen: soft, no distension, tenderness (Mild right upper quadrant) Extremities: no edema, no cyanosis Skin: warm, dry Psy/Mental Status: alert, normal affect - Problem List Review Problem List Initiated/Reviewed/Updated: Yes - My Orders Last 24 Hours: My Active Orders 01/27/17 07:30 Pantoprazole [ProTONIX] 40 mg PO ACBREAKFAST 01/27/17 10:33 Lactated Ringers [Ringers, Lactated] 1,000 ml IV ASDIRECTED - Plan Plan:: ASSESSMENT AND PLAN - ABDOMINAL PAIN ASSOCIATED WITH NAUSEA VOMITING AND ASCITES - acute on chronic difficulties. EGD did not reveal significant abnormalities. Ultrasound of the liver showed some evidence for cirrhosis but no vascular issues. This could be a side effect from the doxycycline. Minimal ongoing pain at this time. -Advance diet as tolerated per surgery -Fentanyl via HADOOP DEVELOPER for pain control -PPI -Antiemetic therapy as needed -Surgical followup per Dr. aZfar PULMONARY NODULES - indeterminate by CT scan, current plan is to repeat scan in approximately 3 months. She is now status post right thoracotomy and wedge resection. Has chest tube in place with minimal residual right apical pneumothorax. -Chest tube cares per Dr. Zafar -Followup pathology HYDRADENITIS - improved on oral antibiotic therapy, doing quite well with minimal pain after surgical intervention yesterday. -Surgical followup as per Dr. Zafar -Followup pathology -Doxycycline 100 mg IV every 12 hours STATUS POST RUTH-EN-Y GASTRIC BYPASS SURGERY MAINTENANCE ISSUES -DVT prophylaxis; Lovenox 40 mg subcutaneous daily -GI prophylaxis; Protonix as above -Ward catheter; not indicated -Nutrition; advance diet as tolerated per surgery DISPOSITION - anticipate discharge to home after the hospital stay. Michael Barker M.D.
[2017-01-27] MEDS ORDERED: Magnesium Citrate Solution 296 ML Bottle PO ONE (15:00)
[2017-01-27] MEDS: Enoxaparin 40 MG/0.4 ML Syringe SUBCUT SCH (20:44)
[2017-01-28] MEDS: fentaNYL/Normal Saline 600 MCG/30 ML PCA Vial IV PRN (00:32)
[2017-01-28] MEDS: Doxycycline 100 MG in Sodium Chloride 0.9% 100 ML IV SCH ×2 (01:50→14:33)
[2017-01-28] MEDS: Acetaminophen 325 MG Tab PO SCH ×4 (05:21→23:31)
[2017-01-28] MEDS: Pantoprazole 40 MG Tab.CR PO SCH (07:51)
[2017-01-28] MEDS ORDERED: Furosemide 20 MG/2 ML VIAL IV ONE (09:45)
--- NOTE | 2017-01-28 09:57 | CR ---
Chest 1V Frontal HISTORY: Right-sided chest tube COMPARISON: 01/27/2017 FINDINGS: Tiny right apical pneumothorax unchanged. Right-sided chest tube with some adjacent atelec tatic change. Left-sided central line. No new infiltrates.
[2017-01-28] MEDS: Bisacodyl 5 MG Tab PO SCH ×2 (10:04→21:21)
[2017-01-28] MEDS: Docusate Sodium 100 MG Cap PO SCH (10:04)
[2017-01-28] MEDS: Polyethylene Glycol 3350 Powder 17 GM Packet PO SCH (10:05)
--- NOTE | 2017-01-28 11:33 | PN ---
DATE OF SERVICE: 01/28/2017 SUBJECTIVE: Rocio Wren's chest tube put out 100 mL. Her Parr was flushed and taped up at an angle. She has had no further problems with it. She had a medium bowel movement. She reports fluid retention in her legs just generalized. With walking, she has desaturated into the 70s to 80s with ambulation. Rocio does not believe that because she states she is not short of breath and she is able to talk. She also was noted to have more desaturations with sleeping, but again she states she is feeling fine. She reports spitting up some dark brown-colored sputum. Rocio thinks this is more from quitting smoking. She has been afebrile. Pain is controlled. REVIEW OF SYSTEMS: Remainder of review of systems negative for any pertinent positives and negatives. OBJECTIVE: GENERAL: Rocio Wren is a 51-year-old female. She is alert and orientated. VITAL SIGNS: TPR 97.1, 69, 16, oxygen by pulse oximetry is 90%, blood pressure 105/86, prior to that it was 92/61. HEENT: Negative. NECK: Supple. She does have 3 lymph nodes in the back of her neck. HEART: Regular rate and rhythm. LUNGS: Have good air exchange. Right chest tube is in place. There are rhonchi with coughing. ABDOMEN: Soft and nontender. She states that it did improve after she had a bowel movement, but feels like she still has more stool. EXTREMITIES: Subjectively, she reports an increased amount of fluid retention. Her upper and lower legs and feet are soft. There are no obvious edema noted. SCDs have been off, stressed the importance that she keeps those on. SKIN: Without rash. ASSESSMENT: 1. Right thoracoscopy with right segment of the right lobe removed. Wedge biopsy of medial bronchial segment of the right lower lobe. Mediastinal lymph node biopsy. Insertion of Parr catheter, left subclavian vein for multiple pulmonary nodules, and limited peripheral venous access on 01/25/2017. 2. Excision of right axillary mass with frozen section, gastroscopy, bronchoscopy with washings for pulmonary nodule and right axillary lesion, abdominal pain, nausea, and vomiting. Date of procedure 01/24/2017. 3. Anemia of 8.1, requiring 2 units of packed red blood cells. 4. Ferritin of 5 received 2 doses of Venofer 500 mg IV. PLAN: 1. MiraLAX 17 g p.o. daily. 2. Check CBC, CMP, Mag, phos now in a.m. 3. Discontinue LIME HIDE INSPECTOR. 4. Oxycodone 5 mg 1 to 2 every 4 hours p.r.n. pain and saline lock IV to avoid further fluid retention. 5. Check sputum. Sputum sample for culture and sensitivity. 6. Continue to use incentive spirometer ambulation and we will evaluate p.r.n. or in a.m. Shweta Newby PA-C /[id number]
--- NOTE | 2017-01-28 11:44 | PCM.PN ---
- General Info Date of Service: 01/28/17 Functional Status: Reports: pain controlled, tolerating diet - Review of Systems General: Reports: Weakness Pulmonary: Reports: shortness of breath Gastrointestinal: Reports: Abdominal pain Systems Review Comment:: No acute events overnight. Still having some intermittent right upper quadrant pain. Feels bloated and swollen, especially in her legs and her arms. She does desaturate with activity and has used supplemental oxygen some throughout the night. She does not feel short of breath at rest. She has not been having any fevers. No vomiting. Pathology is still pending. - Patient Data Vitals - most recent: Last Vital Signs Temp 36.3 C 01/28/17 10:40 Pulse 61 01/28/17 10:40 Resp 16 01/28/17 07:16 BP 117/72 01/28/17 10:40 Pulse Ox 91 L 01/28/17 10:40 Weight - most recent: 72.575 kg I&O - last 24 hours: Intake & Output 01/27/17 01/28/17 01/28/17 22:59 06:59 14:59 Intake Total 1709 275 500 Output Total 1600 500 200 Balance 109 -225 300 Lab Results last 24 hrs: Laboratory Results - last 24 hr 01/24/17 01/28/17 01/28/17 Range/Units 14:43 08:11 08:11 WBC 4.4 L (4.5-11.0) K/uL RBC 4.42 (3.30-5.50) M/uL Hgb 9.8 L (12.0-15.0) g/dL Hct 32.7 L (36.0-48.0) % MCV 74 L (80-98) fL MCH 22 L (27-31) pg MCHC 30 L (32-36) % Plt Count 272 (150-400) K/uL Sodium 139 L (140-148) mmol/L Potassium 3.8 (3.6-5.2) mmol/L Chloride 103 (100-108) mmol/L Carbon Dioxide 30 (21-32) mmol/L Anion Gap 9.8 (5.0-14.0) mmol/L BUN 6 L (7-18) mg/dL Creatinine 0.6 (0.6-1.0) mg/dL Est Cr Clr Drug Dosing 88.93 mL/min Estimated GFR (MDRD) > 60 (>60) Glucose 83 (74-106) mg/dL Calcium 7.9 L (8.5-10.1) mg/dL Phosphorus 4.2 (2.5-4.9) mg/dL Magnesium 2.1 (1.8-2.4) mg/dL Total Bilirubin 0.6 (0.2-1.0) mg/dL AST 19 (15-37) U/L ALT 18 (12-78) U/L Alkaline Phosphatase 62 (46-116) U/L Total Protein 5.8 L (6.4-8.2) g/dL Albumin 2.7 L (3.4-5.0) g/dL Globulin 3.1 (2.3-3.5) g/dL Albumin/Globulin Ratio 0.9 L (1.2-2.2) Blood Type A POSITIVE Gel Antibody Screen Negative Crossmatch See Detail Jarrod Results last 24 hrs: Microbiology 01/25/17 12:08 Anaerobic Culture - Final Lung - Right Lower Lobe NO GROWTH AFTER 3 DAYS 01/25/17 12:08 Gram Stain - Final Lung - Right Lower Lobe Wound Culture - Final NO GROWTH AFTER 3 DAYS 01/24/17 13:38 Gram Stain - Final Other - Axilla, Right Wound Culture - Final NO GROWTH AFTER 3 DAYS Anaerobic Culture - Final NO GROWTH AFTER 3 DAYS 01/24/17 13:38 Specimen Source - Preliminary Other - Axilla, Right Acid Fast Bacilli Smear - Preliminary 01/24/17 14:19 Specimen Source - Preliminary Bronchial Alveolar Lavage - Lung, Right Acid Fast Bacilli Smear - Preliminary 01/24/17 14:19 Specimen Source - Preliminary Bronchial Washings - Lung, Unspecified Acid Fast Bacilli Smear - Preliminary 01/25/17 12:12 Specimen Source - Preliminary Lung - Right Lower Lobe Acid Fast Bacilli Smear - Preliminary Med Orders - Current: Current Medications Acetaminophen (Tylenol) 650 mg PO Q6H [facility] Last Admin: 01/28/17 05:21 Dose: 650 mg Bisacodyl (Dulcolax) 20 mg PO BID [facility] Last Admin: 01/28/17 10:04 Dose: 20 mg Docusate Sodium (Colace) 100 mg PO DAILY [facility] Last Admin: 01/28/17 10:04 Dose: 100 mg Enoxaparin Sodium (Lovenox) 40 mg SUBCUT Q24H [facility] Last Admin: 01/27/17 20:44 Dose: 40 mg Heparin Sodium (Porcine) (Heparin Lock Flush 100 Units/Ml Syringe) 500 units FLUSH ASDIRECTED PRN PRN Reason: IV Use Last Admin: 01/26/17 08:15 Dose: 500 units Doxycycline Hyclate 100 mg/ (Sodium Chloride) 100 mls @ 100 mls/hr IV Q12H [facility] Last Admin: 01/28/17 01:50 Dose: 100 mls/hr Lactated Ringer's (Ringers, Lactated) 1,000 mls @ 25 mls/hr IV ASDIRECTED ROSMERY Naloxone HCl (Narcan) 0.4 mg IVPUSH Q2M PRN PRN Reason: Respiratory Distress Ondansetron HCl (Zofran) 4 mg IV Q4H PRN PRN Reason: Nausea/Vomiting Last Admin: 01/23/17 20:42 Dose: 4 mg Oxycodone HCl (Oxycodone) 5 - 10 mg PO Q4H PRN PRN Reason: Pain Pantoprazole Sodium (Protonix) 40 mg PO ACBREAKFAST [facility] Last Admin: 01/28/17 07:51 Dose: 40 mg Polyethylene Glycol (Miralax) 17 gm PO DAILY [facility] Last Admin: 01/28/17 10:05 Dose: 17 gm Sodium Chloride (Saline Flush) 10 ml FLUSH ASDIRECTED PRN PRN Reason: Keep Vein Open Discontinued Medications Bupivacaine HCl (Marcaine 0.5%) Confirm Administered Dose 50 ml .ROUTE .STK-MED ONE Stop: 01/24/17 08:10 Last Admin: 01/24/17 13:09 Dose: 10 ml Bupivacaine HCl/Epinephrine Bitart (Marcaine 0.5%/Epinephrine 1:200,000) Confirm Administered Dose 50 ml .ROUTE .STK-MED ONE Stop: 01/25/17 08:41 Last Admin: 01/25/17 11:19 Dose: 20 ml Cyanocobalamin (Vitamin B12) 1,000 mcg IM ONETIME ONE Stop: 01/24/17 09:01 Last Admin: 01/24/17 10:21 Dose: 1,000 mcg Dexamethasone (Dexamethasone) Confirm Administered Dose 8 mg .ROUTE .STK-MED ONE Stop: 01/25/17 09:44 Diphenhydramine HCl (Benadryl) 50 mg IV ASDIRECTED PRN PRN Reason: ALLERGIC REACTION Stop: 01/26/17 09:19 Enoxaparin Sodium (Lovenox) 40 mg SUBCUT Q24H [facility] Last Admin: 01/23/17 02:21 Dose: 40 mg Famotidine (Pepcid) 20 mg IV ASDIRECTED PRN PRN Reason: ALLERGIC REACTION Stop: 01/26/17 09:21 Fentanyl (Sublimaze) Confirm Administered Dose 100 mcg .ROUTE .STK-MED ONE Stop: 01/24/17 11:42 Fentanyl (Sublimaze) Confirm Administered Dose 250 mcg .ROUTE .STK-MED ONE Stop: 01/25/17 09:43 Fentanyl (Sublimaze) 100 mcg IVPUSH ONETIME ONE Stop: 01/25/17 12:04 Last Admin: 01/25/17 12:09 Dose: 100 mcg Fentanyl Citrate (Fentanyl In Ns 20 Mcg/Ml 30 Ml [employer]) 0 mcg IV ASDIRECTED PRN; Protocol PRN Reason: Pain Last Admin: 01/28/17 00:32 Dose: 600 mcg Furosemide (Lasix) 20 mg IV ONETIME ONE Stop: 01/28/17 09:46 Last Admin: 01/28/17 10:04 Dose: 20 mg Glycopyrrolate () Confirm Administered Dose 1 mg .ROUTE .STK-MED ONE Stop: 01/25/17 09:44 Heparin Sodium (Porcine) (Heparin Lock Flush 100 Units/Ml Syringe) Confirm Administered Dose 500 units .ROUTE .STK-MED ONE Stop: 01/25/17 08:49 Last Admin: 01/25/17 10:28 Dose: 500 units Heparin Sodium (Porcine) (Heparin Lock Flush 100 Units/Ml Syringe) Confirm Administered Dose 500 units .ROUTE .STK-MED ONE Stop: 01/26/17 08:12 Last Admin: 01/26/17 08:12 Dose: Not Given Hydrocortisone Sodium Succinate (Solu-Cortef) 100 mg IV ASDIRECTED PRN PRN Reason: ALLERGIC REACTION Stop: 01/26/17 09:20 Sodium Chloride (Normal Saline) 1,000 mls @ 999 mls/hr IV ASDIRECTED [facility] Last Admin: 01/22/17 23:20 Dose: 999 mls/hr Sodium Chloride (Normal Saline) 70 mls @ 3 mls/sec IV ASDIRECTED [facility] Last Admin: 01/22/17 22:48 Dose: 3 mls/sec Sodium Chloride (Normal Saline) 1,000 mls @ 999 mls/hr IV ASDIRECTED [facility] Last Admin: 01/22/17 20:50 Dose: 999 mls/hr Lactated Ringer's (Ringers, Lactated) 1,000 mls @ 80 mls/hr IV ASDIRECTED [facility] Last Admin: 01/27/17 01:46 Dose: 125 mls/hr Iron Sucrose 500 mg/ Sodium (Chloride) 275 mls @ 68 mls/hr IV ONETIME ONE Stop: 01/24/17 22:02 Last Admin: 01/24/17 17:26 Dose: 68 mls/hr Iron Sucrose 500 mg/ Sodium (Chloride) 275 mls @ 68 mls/hr IV ONETIME ONE Stop: 01/25/17 22:02 Last Admin: 01/25/17 17:34 Dose: 68 mls/hr Lactated Ringer's (Ringers, Lactated) Confirm Administered Dose 1,000 mls @ as directed .ROUTE .STK-MED ONE Stop: 01/24/17 12:56 Acetaminophen (Ofirmev) Confirm Administered Dose 100 mls @ as directed IV .STK- MED ONE Stop: 01/25/17 11:23 Magnesium Sulfate 2 gm/ Premix 50 mls @ 25 mls/hr IV Q6H [facility] Stop: 01/26/17 18:59 Last Admin: 01/26/17 16:47 Dose: 25 mls/hr Iopamidol (Isovue-300 (61%)) 100 ml IV . DIRECTED PRN PRN Reason: RADIOLOGY EXAM Stop: 01/23/17 22:09 Last Admin: 01/22/17 22:48 Dose: 100 ml Lidocaine (Lidocaine 4% Top Soln) Confirm Administered Dose 4 ml .ROUTE .STK- MED ONE Stop: 01/24/17 11:43 Lidocaine HCl (Xylocaine 2% Viscous) Confirm Administered Dose 15 ml .ROUTE .STK -MED ONE Stop: 01/24/17 13:03 Last Admin: 01/24/17 13:11 Dose: 15 ml Lidocaine HCl (Xylocaine 4% Top Soln) Confirm Administered Dose 50 ml .ROUTE .STK-MED ONE Stop: 01/24/17 13:03 Last Admin: 01/24/17 13:12 Dose: 50 ml Lidocaine/Epinephrine (Xylocaine 1% With Epinephrine 1:100,000) Confirm Administered Dose 50 ml .ROUTE .STK-MED ONE Stop: 01/24/17 08:10 Last Admin: 01/24/17 13:10 Dose: 10 ml Magnesium Citrate (Citrate Of Magnesia) 296 ml PO ONETIME ONE Stop: 01/27/17 15:01 Last Admin: 01/27/17 15:55 Dose: 296 ml Magnesium Hydroxide (Milk Of Magnesia) 30 ml PO ONETIME ONE Stop: 01/27/17 09:01 Last Admin: 01/27/17 09:59 Dose: 30 ml Meperidine HCl (Demerol) 15 mg IVPUSH ONETIME ONE Stop: 01/22/17 20:40 Last Admin: 01/22/17 21:17 Dose: Not Given Midazolam HCl (Versed 1 Mg/Ml) Confirm Administered Dose 2 mg .ROUTE .STK-MED ONE Stop: 01/24/17 11:43 Midazolam HCl (Versed 1 Mg/Ml) Confirm Administered Dose 2 mg .ROUTE .STK-MED ONE Stop: 01/25/17 09:43 Morphine Sulfate (Morphine) 2 mg IVPUSH ONETIME ONE Stop: 01/22/17 21:11 Last Admin: 01/22/17 21:14 Dose: 2 mg Morphine Sulfate (Morphine) 2 mg IVPUSH ONETIME ONE Stop: 01/22/17 23:19 Last Admin: 01/22/17 23:38 Dose: 2 mg Naloxone HCl (Narcan) 0.4 mg IVPUSH Q2M PRN PRN Reason: Respiratory Distress Neostigmine Methylsulfate (Neostigmine) Confirm Administered Dose 5 mg .ROUTE .STK-MED ONE Stop: 01/25/17 09:44 Ondansetron HCl (Zofran) 4 mg IVPUSH ONETIME ONE Stop: 01/22/17 20:40 Last Admin: 01/22/17 21:01 Dose: 4 mg Ondansetron HCl (Zofran) Confirm Administered Dose 4 mg .ROUTE .STK-MED ONE Stop: 01/25/17 09:44 Pantoprazole Sodium (Protonix Iv) 40 mg IV Q12H [facility] Last Admin: 01/23/17 02:22 Dose: 40 mg Pantoprazole Sodium (Protonix Iv) 40 mg IV Q12H [facility] Last Admin: 01/26/17 09:39 Dose: 40 mg Propofol (Diprivan 20 Ml) Confirm Administered Dose 200 mg .ROUTE .STK-MED ONE Stop: 01/24/17 11:42 Propofol (Diprivan 20 Ml) Confirm Administered Dose 200 mg .ROUTE .STK-MED ONE Stop: 01/24/17 13:13 Propofol (Diprivan 20 Ml) Confirm Administered Dose 200 mg .ROUTE .STK-MED ONE Stop: 01/24/17 13:42 Propofol (Diprivan 20 Ml) Confirm Administered Dose 200 mg .ROUTE .STK-MED ONE Stop: 01/25/17 09:44 Rocuronium Sunray (Zemuron) Confirm Administered Dose 50 mg .ROUTE .STK-MED ONE Stop: 01/25/17 09:44 Rocuronium Sunray (Zemuron) Confirm Administered Dose 50 mg .ROUTE .STK-MED ONE Stop: 01/25/17 10:55 Sodium Chloride (Saline Flush) 10 ml FLUSH ONETIME ONE Stop: 01/22/17 22:09 Last Admin: 01/22/17 22:48 Dose: 10 ml Succinylcholine Chloride (Succinylcholine In Ns Pf) Confirm Administered Dose 200 mg .ROUTE .STK-MED ONE Stop: 01/25/17 09:44 - Exam Quality Assessment: supplemental oxygen General: alert, oriented, cooperative, no acute distress Neck: supple Lungs: Normal respiratory effort, Decreased breath sounds (left lung base), Crackles (few right lower lung and rare left lung base). No: Wheezing Cardiovascular: Regular Rate, Regular Rhythm Abdomen: soft, no distension Extremities: no cyanosis, edema (pitting edema both lower legs) Skin: warm, dry Psy/Mental Status: alert, normal affect - Problem List Review Problem List Initiated/Reviewed/Updated: Yes - My Orders Last 24 Hours: My Active Orders 01/28/17 09:26 Daily Weight [Height and Weight] [RC] 0500 01/28/17 16:00 Furosemide [Lasix] 20 mg IVPUSH ONETIME ONE 01/29/17 05:00 BASIC METABOLIC PANEL,BMP [CHEM] Timed CBC W/O DIFF,HEMOGRAM [HEME] Timed (1) 01/29/17 08:00 Furosemide [Lasix] 20 mg IVPUSH BIDDIURETIC - Plan Plan:: ASSESSMENT AND PLAN - ABDOMINAL PAIN ASSOCIATED WITH NAUSEA VOMITING AND ASCITES - acute on chronic difficulties. EGD did not reveal significant abnormalities. Ultrasound of the liver showed some evidence for cirrhosis but no vascular issues. I doubt the pain is related to the ascites. She describes it as more of a fullness after eating. -Advance diet as tolerated per surgery -Fentanyl via BATCH TESTER for pain control, try to switch to oral pain medications as soon as possible -PPI -Antiemetic therapy as needed -Surgical followup per Dr. Zafar PULMONARY NODULES - indeterminate by CT scan, current plan is to repeat scan in approximately 3 months. She is now status post right thoracotomy and wedge resection. Has chest tube in place with minimal residual right apical pneumothorax. -Chest tube cares per Dr. Zafar -Followup pathology HYDRADENITIS - improved on oral antibiotic therapy, doing quite well with minimal pain after surgical intervention yesterday. -Surgical followup as per Dr. Zafar -Followup pathology -Doxycycline 100 mg IV every 12 hours STATUS POST RUTH-EN-Y GASTRIC BYPASS SURGERY MAINTENANCE ISSUES -DVT prophylaxis; Lovenox 40 mg subcutaneous daily -GI prophylaxis; Protonix as above -Ward catheter; not indicated -Nutrition; advance diet as tolerated per surgery DISPOSITION - anticipate discharge to home after the hospital stay. Michael Barker M.D.
[2017-01-28] MEDS ORDERED: Furosemide 20 MG/2 ML VIAL IVPUSH ONE (16:00)
[2017-01-28] MEDS: oxyCODONE 5 MG Tab PO PRN ×2 (17:11→21:19)
[2017-01-28] MEDS: Enoxaparin 40 MG/0.4 ML Syringe SUBCUT SCH (19:21)
[2017-01-29] MEDS: oxyCODONE 5 MG Tab PO PRN ×5 (01:26→22:55)
[2017-01-29] MEDS: Doxycycline 100 MG in Sodium Chloride 0.9% 100 ML IV SCH ×2 (01:27→16:14)
[2017-01-29] MEDS: Acetaminophen 325 MG Tab PO SCH ×4 (06:09→22:55)
[2017-01-29] MEDS: Pantoprazole 40 MG Tab.CR PO SCH (07:26)
[2017-01-29] MEDS: Furosemide 20 MG/2 ML VIAL IVPUSH SCH ×2 (07:26→14:45)
[2017-01-29] MEDS: Bisacodyl 5 MG Tab PO SCH (08:38)
[2017-01-29] MEDS: Polyethylene Glycol 3350 Powder 17 GM Packet PO SCH (08:38)
[2017-01-29] MEDS: Docusate Sodium 100 MG Cap PO SCH (08:38)
--- NOTE | 2017-01-29 15:38 | PCM.PN ---
- General Info Date of Service: 01/29/17 Functional Status: Reports: pain controlled, tolerating diet, ambulating - Review of Systems Cardiovascular: Reports: Edema Gastrointestinal: Reports: Abdominal pain Systems Review Comment:: No acute events overnight. Pain has been fairly well-controlled. She's been up and walking around. Edema seems to be improving with diuresis. Parr catheter still very positional. Abdominal pain persists and has not resolved. No fevers. - Patient Data Vitals - most recent: Last Vital Signs Temp 36.6 C 01/29/17 14:43 Pulse 67 01/29/17 14:43 Resp 18 01/29/17 14:43 BP 98/69 01/29/17 14:43 Pulse Ox 92 L 01/29/17 14:43 Weight - most recent: 72.03 kg I&O - last 24 hours: Intake & Output 01/29/17 01/29/17 01/29/17 06:59 14:59 22:59 Intake Total 363 480 Output Total 1470 1825 Balance -1107 -1345 Lab Results last 24 hrs: Laboratory Results - last 24 hr 01/29/17 01/29/17 Range/Units 05:24 05:24 WBC 3.8 L (4.5-11.0) K/uL RBC 4.40 (3.30-5.50) M/uL Hgb 9.7 L (12.0-15.0) g/dL Hct 32.7 L (36.0-48.0) % MCV 74 L (80-98) fL MCH 22 L (27-31) pg MCHC 30 L (32-36) % Plt Count 279 (150-400) K/uL Sodium 143 (140-148) mmol/L Potassium 3.8 (3.6-5.2) mmol/L Chloride 106 (100-108) mmol/L Carbon Dioxide 31 (21-32) mmol/L Anion Gap 6.2 (5.0-14.0) mmol/L BUN 5 L (7-18) mg/dL Creatinine 0.6 (0.6-1.0) mg/dL Est Cr Clr Drug Dosing 88.93 mL/min Estimated GFR (MDRD) > 60 (>60) Glucose 79 (74-106) mg/dL Calcium 7.8 L (8.5-10.1) mg/dL Jarrod Results last 24 hrs: Microbiology 01/28/17 16:17 Gram Stain - Final Sputum - Expectorated Med Orders - Current: Current Medications Acetaminophen (Tylenol) 650 mg PO Q6H [facility] Last Admin: 01/29/17 11:16 Dose: 650 mg Docusate Sodium (Colace) 100 mg PO DAILY [facility] Last Admin: 01/29/17 08:38 Dose: Not Given Enoxaparin Sodium (Lovenox) 40 mg SUBCUT Q24H [facility] Last Admin: 01/28/17 19:21 Dose: 40 mg Furosemide (Lasix) 20 mg IVPUSH BIDDIURETIC [facility] Last Admin: 01/29/17 14:45 Dose: 20 mg Heparin Sodium (Porcine) (Heparin Lock Flush 100 Units/Ml Syringe) 500 units FLUSH ASDIRECTED PRN PRN Reason: IV Use Last Admin: 01/26/17 08:15 Dose: 500 units Lactated Ringer's (Ringers, Lactated) 1,000 mls @ 25 mls/hr IV ASDIRECTED [facility] Last Admin: 01/28/17 14:36 Dose: 25 mls/hr Clindamycin Phosphate 900 mg/ (Sodium Chloride) 106 mls @ 212 mls/hr IV ONETIME ONE Stop: 01/30/17 07:44 Naloxone HCl (Narcan) 0.4 mg IVPUSH Q2M PRN PRN Reason: Respiratory Distress Ondansetron HCl (Zofran) 4 mg IV Q4H PRN PRN Reason: Nausea/Vomiting Last Admin: 01/23/17 20:42 Dose: 4 mg Oxycodone HCl (Oxycodone) 5 - 10 mg PO Q4H PRN PRN Reason: Pain Last Admin: 01/29/17 11:16 Dose: 10 mg Pantoprazole Sodium (Protonix) 40 mg PO ACBREAKFAST [facility] Last Admin: 01/29/17 07:26 Dose: 40 mg Sodium Chloride (Saline Flush) 10 ml FLUSH ASDIRECTED PRN PRN Reason: Keep Vein Open Discontinued Medications Bisacodyl (Dulcolax) 20 mg PO BID [facility] Last Admin: 01/29/17 08:38 Dose: Not Given Bupivacaine HCl (Marcaine 0.5%) Confirm Administered Dose 50 ml .ROUTE .STK-MED ONE Stop: 01/24/17 08:10 Last Admin: 01/24/17 13:09 Dose: 10 ml Bupivacaine HCl/Epinephrine Bitart (Marcaine 0.5%/Epinephrine 1:200,000) Confirm Administered Dose 50 ml .ROUTE .STK-MED ONE Stop: 01/25/17 08:41 Last Admin: 01/25/17 11:19 Dose: 20 ml Cyanocobalamin (Vitamin B12) 1,000 mcg IM ONETIME ONE Stop: 01/24/17 09:01 Last Admin: 01/24/17 10:21 Dose: 1,000 mcg Dexamethasone (Dexamethasone) Confirm Administered Dose 8 mg .ROUTE .STK-MED ONE Stop: 01/25/17 09:44 Diphenhydramine HCl (Benadryl) 50 mg IV ASDIRECTED PRN PRN Reason: ALLERGIC REACTION Stop: 01/26/17 09:19 Enoxaparin Sodium (Lovenox) 40 mg SUBCUT Q24H [facility] Last Admin: 01/23/17 02:21 Dose: 40 mg Famotidine (Pepcid) 20 mg IV ASDIRECTED PRN PRN Reason: ALLERGIC REACTION Stop: 01/26/17 09:21 Fentanyl (Sublimaze) Confirm Administered Dose 100 mcg .ROUTE .STK-MED ONE Stop: 01/24/17 11:42 Fentanyl (Sublimaze) Confirm Administered Dose 250 mcg .ROUTE .STK-MED ONE Stop: 01/25/17 09:43 Fentanyl (Sublimaze) 100 mcg IVPUSH ONETIME ONE Stop: 01/25/17 12:04 Last Admin: 01/25/17 12:09 Dose: 100 mcg Fentanyl Citrate (Fentanyl In Ns 20 Mcg/Ml 30 Ml [employer]) 0 mcg IV ASDIRECTED PRN; Protocol PRN Reason: Pain Last Admin: 01/28/17 00:32 Dose: 600 mcg Furosemide (Lasix) 20 mg IV ONETIME ONE Stop: 01/28/17 09:46 Last Admin: 01/28/17 10:04 Dose: 20 mg Furosemide (Lasix) 20 mg IVPUSH ONETIME ONE Stop: 01/28/17 16:01 Last Admin: 01/28/17 16:06 Dose: 20 mg Glycopyrrolate () Confirm Administered Dose 1 mg .ROUTE .STK-MED ONE Stop: 01/25/17 09:44 Heparin Sodium (Porcine) (Heparin Lock Flush 100 Units/Ml Syringe) Confirm Administered Dose 500 units .ROUTE .STK-MED ONE Stop: 01/25/17 08:49 Last Admin: 01/25/17 10:28 Dose: 500 units Heparin Sodium (Porcine) (Heparin Lock Flush 100 Units/Ml Syringe) Confirm Administered Dose 500 units .ROUTE .STK-MED ONE Stop: 01/26/17 08:12 Last Admin: 01/26/17 08:12 Dose: Not Given Hydrocortisone Sodium Succinate (Solu-Cortef) 100 mg IV ASDIRECTED PRN PRN Reason: ALLERGIC REACTION Stop: 01/26/17 09:20 Sodium Chloride (Normal Saline) 1,000 mls @ 999 mls/hr IV ASDIRECTED [facility] Last Admin: 01/22/17 23:20 Dose: 999 mls/hr Sodium Chloride (Normal Saline) 70 mls @ 3 mls/sec IV ASDIRECTED [facility] Last Admin: 01/22/17 22:48 Dose: 3 mls/sec Sodium Chloride (Normal Saline) 1,000 mls @ 999 mls/hr IV ASDIRECTED [facility] Last Admin: 01/22/17 20:50 Dose: 999 mls/hr Doxycycline Hyclate 100 mg/ (Sodium Chloride) 100 mls @ 100 mls/hr IV Q12H [facility] Last Admin: 01/29/17 01:27 Dose: 100 mls/hr Lactated Ringer's (Ringers, Lactated) 1,000 mls @ 80 mls/hr IV ASDIRECTED [facility] Last Admin: 01/27/17 01:46 Dose: 125 mls/hr Iron Sucrose 500 mg/ Sodium (Chloride) 275 mls @ 68 mls/hr IV ONETIME ONE Stop: 01/24/17 22:02 Last Admin: 01/24/17 17:26 Dose: 68 mls/hr Iron Sucrose 500 mg/ Sodium (Chloride) 275 mls @ 68 mls/hr IV ONETIME ONE Stop: 01/25/17 22:02 Last Admin: 01/25/17 17:34 Dose: 68 mls/hr Lactated Ringer's (Ringers, Lactated) Confirm Administered Dose 1,000 mls @ as directed .ROUTE .STK-MED ONE Stop: 01/24/17 12:56 Acetaminophen (Ofirmev) Confirm Administered Dose 100 mls @ as directed IV .STK- MED ONE Stop: 01/25/17 11:23 Magnesium Sulfate 2 gm/ Premix 50 mls @ 25 mls/hr IV Q6H [facility] Stop: 01/26/17 18:59 Last Admin: 01/26/17 16:47 Dose: 25 mls/hr Iopamidol (Isovue-300 (61%)) 100 ml IV . DIRECTED PRN PRN Reason: RADIOLOGY EXAM Stop: 01/23/17 22:09 Last Admin: 01/22/17 22:48 Dose: 100 ml Lidocaine (Lidocaine 4% Top Soln) Confirm Administered Dose 4 ml .ROUTE .STK- MED ONE Stop: 01/24/17 11:43 Lidocaine HCl (Xylocaine 2% Viscous) Confirm Administered Dose 15 ml .ROUTE .STK -MED ONE Stop: 01/24/17 13:03 Last Admin: 01/24/17 13:11 Dose: 15 ml Lidocaine HCl (Xylocaine 4% Top Soln) Confirm Administered Dose 50 ml .ROUTE .STK-MED ONE Stop: 01/24/17 13:03 Last Admin: 01/24/17 13:12 Dose: 50 ml Lidocaine/Epinephrine (Xylocaine 1% With Epinephrine 1:100,000) Confirm Administered Dose 50 ml .ROUTE .STK-MED ONE Stop: 01/24/17 08:10 Last Admin: 01/24/17 13:10 Dose: 10 ml Magnesium Citrate (Citrate Of Magnesia) 296 ml PO ONETIME ONE Stop: 01/27/17 15:01 Last Admin: 01/27/17 15:55 Dose: 296 ml Magnesium Hydroxide (Milk Of Magnesia) 30 ml PO ONETIME ONE Stop: 01/27/17 09:01 Last Admin: 01/27/17 09:59 Dose: 30 ml Meperidine HCl (Demerol) 15 mg IVPUSH ONETIME ONE Stop: 01/22/17 20:40 Last Admin: 01/22/17 21:17 Dose: Not Given Midazolam HCl (Versed 1 Mg/Ml) Confirm Administered Dose 2 mg .ROUTE .STK-MED ONE Stop: 01/24/17 11:43 Midazolam HCl (Versed 1 Mg/Ml) Confirm Administered Dose 2 mg .ROUTE .STK-MED ONE Stop: 01/25/17 09:43 Morphine Sulfate (Morphine) 2 mg IVPUSH ONETIME ONE Stop: 01/22/17 21:11 Last Admin: 01/22/17 21:14 Dose: 2 mg Morphine Sulfate (Morphine) 2 mg IVPUSH ONETIME ONE Stop: 01/22/17 23:19 Last Admin: 01/22/17 23:38 Dose: 2 mg Naloxone HCl (Narcan) 0.4 mg IVPUSH Q2M PRN PRN Reason: Respiratory Distress Neostigmine Methylsulfate (Neostigmine) Confirm Administered Dose 5 mg .ROUTE .STK-MED ONE Stop: 01/25/17 09:44 Ondansetron HCl (Zofran) 4 mg IVPUSH ONETIME ONE Stop: 01/22/17 20:40 Last Admin: 01/22/17 21:01 Dose: 4 mg Ondansetron HCl (Zofran) Confirm Administered Dose 4 mg .ROUTE .STK-MED ONE Stop: 01/25/17 09:44 Pantoprazole Sodium (Protonix Iv) 40 mg IV Q12H [facility] Last Admin: 01/23/17 02:22 Dose: 40 mg Pantoprazole Sodium (Protonix Iv) 40 mg IV Q12H [facility] Last Admin: 01/26/17 09:39 Dose: 40 mg Polyethylene Glycol (Miralax) 17 gm PO DAILY [facility] Last Admin: 01/29/17 08:38 Dose: Not Given Propofol (Diprivan 20 Ml) Confirm Administered Dose 200 mg .ROUTE .STK-MED ONE Stop: 01/24/17 11:42 Propofol (Diprivan 20 Ml) Confirm Administered Dose 200 mg .ROUTE .STK-MED ONE Stop: 01/24/17 13:13 Propofol (Diprivan 20 Ml) Confirm Administered Dose 200 mg .ROUTE .STK-MED ONE Stop: 01/24/17 13:42 Propofol (Diprivan 20 Ml) Confirm Administered Dose 200 mg .ROUTE .STK-MED ONE Stop: 01/25/17 09:44 Rocuronium Silas (Zemuron) Confirm Administered Dose 50 mg .ROUTE .STK-MED ONE Stop: 01/25/17 09:44 Rocuronium Silas (Zemuron) Confirm Administered Dose 50 mg .ROUTE .STK-MED ONE Stop: 01/25/17 10:55 Sodium Chloride (Saline Flush) 10 ml FLUSH ONETIME ONE Stop: 01/22/17 22:09 Last Admin: 01/22/17 22:48 Dose: 10 ml Succinylcholine Chloride (Succinylcholine In Ns Pf) Confirm Administered Dose 200 mg .ROUTE .STK-MED ONE Stop: 01/25/17 09:44 - Exam Quality Assessment: No: supplemental oxygen General: alert, oriented, cooperative, no acute distress Neck: supple Lungs: Normal respiratory effort, Other (chest tube right lateral chest) Cardiovascular: Regular Rate, Regular Rhythm Abdomen: soft, no distension Extremities: no edema, no cyanosis Skin: warm, dry Psy/Mental Status: alert, normal affect - Problem List Review Problem List Initiated/Reviewed/Updated: Yes - My Orders Last 24 Hours: My Active Orders 01/29/17 08:00 Furosemide [Lasix] 20 mg IVPUSH BIDDIURETIC - Plan Plan:: ASSESSMENT AND PLAN - ABDOMINAL PAIN ASSOCIATED WITH NAUSEA VOMITING AND ASCITES - acute on chronic difficulties. EGD did not reveal significant abnormalities. Ultrasound of the liver showed some evidence for cirrhosis but no vascular issues. I doubt the pain is related to the ascites. Some concern for gastric cancer based on preliminary pathology, final pathology is pending. -Advance diet as tolerated per surgery -Continue current pain control -PPI -Antiemetic therapy as needed -Surgical followup per Dr. Zafar, exploratory laparotomy planned for Tuesday morning -CEA ordered for the morning PULMONARY NODULES - indeterminate by CT scan. She is now status post right thoracotomy and wedge resection. Has chest tube in place with minimal residual right apical pneumothorax. -Chest tube cares per Dr. Zafar -Followup pathology HYDRADENITIS - improved on oral antibiotic therapy, doing quite well with minimal pain after surgical intervention. -Surgical followup as per Dr. Zafar -Followup pathology -Discontinue STATUS POST RUTH-EN-Y GASTRIC BYPASS SURGERY MAINTENANCE ISSUES -DVT prophylaxis; Lovenox 40 mg subcutaneous daily -GI prophylaxis; Protonix as above -Ward catheter; not indicated -Nutrition; advance diet as tolerated per surgery DISPOSITION - anticipate discharge to home after the hospital stay. Michael Barker M.D.
[2017-01-29] MEDS: Enoxaparin 40 MG/0.4 ML Syringe SUBCUT SCH (20:04)
[2017-01-30] MEDS: oxyCODONE 5 MG Tab PO PRN ×5 (03:00→23:21)
[2017-01-30] MEDS: Acetaminophen 325 MG Tab PO SCH ×4 (05:05→23:20)
[2017-01-30] MEDS ORDERED: Bupivacaine 0.5% 50 ML MDV ONE (06:48)
[2017-01-30] MEDS ORDERED: Lidocaine 1% with EPINEPHrine 1:100,000 50 ML MDV ONE (06:49)
[2017-01-30] MEDS ORDERED: Clindamycin Phosphate 900 MG in Sodium Chloride 0.9% 100 ML IV ONE (07:15)
[2017-01-30] MEDS ORDERED: fentaNYL 100 MCG/2 ML SDV ONE (07:17)
[2017-01-30] MEDS ORDERED: Propofol 200 MG/20 ML SDV ONE (07:17)
[2017-01-30] MEDS ORDERED: Midazolam 1 MG/ML 2 ML SDV ONE (07:17)
[2017-01-30] MEDS ORDERED: Lactated Ringers 1,000 ML ONE (07:34)
[2017-01-30] MEDS: Pantoprazole 40 MG Tab.CR PO SCH ×2 (09:22→11:34)
[2017-01-30] MEDS: Docusate Sodium 100 MG Cap PO SCH (09:23)
[2017-01-30] MEDS: Furosemide 20 MG/2 ML VIAL IVPUSH SCH (10:10)
[2017-01-30] MEDS ORDERED: Potassium Chloride 20 MEQ Tab.ER PO ONE (10:30)
--- NOTE | 2017-01-30 11:32 | PCM.PN ---
- General Info Date of Service: 01/30/17 Functional Status: Reports: pain controlled, tolerating diet, ambulating - Review of Systems General: Denies: Fever Gastrointestinal: Reports: Abdominal pain Systems Review Comment:: No acute events overnight. She had her Parr catheter replaced today without difficulty. Seems to be functioning well. No fevers. Still having intermittent abdominal pain, especially after eating. Respiratory status has been stable. Chest tube output has been declining. Bowels have been moving. She has been up and walking around. - Patient Data Vitals - most recent: Last Vital Signs Temp 36.4 C 01/30/17 11:28 Pulse 68 01/30/17 11:28 Resp 18 01/30/17 11:28 BP 102/68 01/30/17 11:28 Pulse Ox 89 L 01/30/17 10:46 Weight - most recent: 70.125 kg I&O - last 24 hours: Intake & Output 01/29/17 01/30/17 01/30/17 22:59 06:59 14:59 Intake Total 1226 705 0 Output Total 3400 310 1250 Balance -2174 395 -1250 Lab Results last 24 hrs: Laboratory Results - last 24 hr 01/30/17 01/30/17 01/30/17 Range/Units 04:00 04:05 04:05 WBC 3.9 L (4.5-11.0) K/uL RBC 4.10 (3.30-5.50) M/uL Hgb 9.2 L (12.0-15.0) g/dL Hct 30.6 L (36.0-48.0) % MCV 75 L (80-98) fL MCH 22 L (27-31) pg MCHC 30 L (32-36) % Plt Count 267 (150-400) K/uL Sodium 138 L (140-148) mmol/L Potassium 3.5 L (3.6-5.2) mmol/L Chloride 102 (100-108) mmol/L Carbon Dioxide 29 (21-32) mmol/L Anion Gap 10.5 (5.0-14.0) mmol/L BUN 6 L (7-18) mg/dL Creatinine 0.6 (0.6-1.0) mg/dL Est Cr Clr Drug Dosing 88.93 mL/min Estimated GFR (MDRD) > 60 (>60) Glucose 90 (74-106) mg/dL Calcium 7.7 L (8.5-10.1) mg/dL Phosphorus 4.5 (2.5-4.9) mg/dL Magnesium 1.8 (1.8-2.4) mg/dL Total Bilirubin 0.3 (0.2-1.0) mg/dL AST 18 (15-37) U/L ALT 21 (12-78) U/L Alkaline Phosphatase 52 (46-116) U/L Total Protein 5.3 L (6.4-8.2) g/dL Albumin 2.3 L (3.4-5.0) g/dL Globulin 3.0 (2.3-3.5) g/dL Albumin/Globulin Ratio 0.8 L (1.2-2.2) Blood Type A POSITIVE Gel Antibody Screen Negative Crossmatch See Detail Jarrod Results last 24 hrs: Microbiology 01/28/17 16:17 Gram Stain - Final Sputum - Expectorated Respiratory Culture - Preliminary NORMAL RESPIRATORY AXEL 1 DAY Med Orders - Current: Current Medications Acetaminophen (Tylenol) 650 mg PO Q6H [facility] Last Admin: 01/30/17 05:05 Dose: 650 mg Docusate Sodium (Colace) 100 mg PO DAILY [facility] Last Admin: 01/30/17 09:23 Dose: Not Given Heparin Sodium (Porcine) (Heparin Lock Flush 100 Units/Ml Syringe) 500 units FLUSH ASDIRECTED PRN PRN Reason: IV Use Last Admin: 01/26/17 08:15 Dose: 500 units Lactated Ringer's (Ringers, Lactated) 1,000 mls @ 25 mls/hr IV ASDIRECTED [facility] Last Admin: 01/28/17 14:36 Dose: 25 mls/hr Naloxone HCl (Narcan) 0.4 mg IVPUSH Q2M PRN PRN Reason: Respiratory Distress Ondansetron HCl (Zofran) 4 mg IV Q4H PRN PRN Reason: Nausea/Vomiting Last Admin: 01/23/17 20:42 Dose: 4 mg Oxycodone HCl (Oxycodone) 5 - 10 mg PO Q3H PRN PRN Reason: Pain Pantoprazole Sodium (Protonix) 40 mg PO ACBREAKFAST [facility] Last Admin: 01/30/17 09:22 Dose: Not Given Sodium Chloride (Saline Flush) 10 ml FLUSH ASDIRECTED PRN PRN Reason: Keep Vein Open Discontinued Medications Bisacodyl (Dulcolax) 20 mg PO BID [facility] Last Admin: 01/29/17 08:38 Dose: Not Given Bupivacaine HCl (Marcaine 0.5%) Confirm Administered Dose 50 ml .ROUTE .STK-MED ONE Stop: 01/24/17 08:10 Last Admin: 01/24/17 13:09 Dose: 10 ml Bupivacaine HCl (Marcaine 0.5%) Confirm Administered Dose 50 ml .ROUTE .STK-MED ONE Stop: 01/30/17 06:49 Last Admin: 01/30/17 07:45 Dose: 10 ml Bupivacaine HCl/Epinephrine Bitart (Marcaine 0.5%/Epinephrine 1:200,000) Confirm Administered Dose 50 ml .ROUTE .STK-MED ONE Stop: 01/25/17 08:41 Last Admin: 01/25/17 11:19 Dose: 20 ml Cyanocobalamin (Vitamin B12) 1,000 mcg IM ONETIME ONE Stop: 01/24/17 09:01 Last Admin: 01/24/17 10:21 Dose: 1,000 mcg Dexamethasone (Dexamethasone) Confirm Administered Dose 8 mg .ROUTE .STK-MED ONE Stop: 01/25/17 09:44 Diphenhydramine HCl (Benadryl) 50 mg IV ASDIRECTED PRN PRN Reason: ALLERGIC REACTION Stop: 01/26/17 09:19 Enoxaparin Sodium (Lovenox) 40 mg SUBCUT Q24H [facility] Last Admin: 01/23/17 02:21 Dose: 40 mg Enoxaparin Sodium (Lovenox) 40 mg SUBCUT Q24H [facility] Last Admin: 01/29/17 20:04 Dose: 40 mg Famotidine (Pepcid) 20 mg IV ASDIRECTED PRN PRN Reason: ALLERGIC REACTION Stop: 01/26/17 09:21 Fentanyl (Sublimaze) Confirm Administered Dose 100 mcg .ROUTE .STK-MED ONE Stop: 01/24/17 11:42 Fentanyl (Sublimaze) Confirm Administered Dose 250 mcg .ROUTE .STK-MED ONE Stop: 01/25/17 09:43 Fentanyl (Sublimaze) 100 mcg IVPUSH ONETIME ONE Stop: 01/25/17 12:04 Last Admin: 01/25/17 12:09 Dose: 100 mcg Fentanyl (Sublimaze) Confirm Administered Dose 100 mcg .ROUTE .STK-MED ONE Stop: 01/30/17 07:18 Fentanyl Citrate (Fentanyl In Ns 20 Mcg/Ml 30 Ml Hairspring Staker) 0 mcg IV ASDIRECTED PRN; Protocol PRN Reason: Pain Last Admin: 01/28/17 00:32 Dose: 600 mcg Furosemide (Lasix) 20 mg IV ONETIME ONE Stop: 01/28/17 09:46 Last Admin: 01/28/17 10:04 Dose: 20 mg Furosemide (Lasix) 20 mg IVPUSH ONETIME ONE Stop: 01/28/17 16:01 Last Admin: 01/28/17 16:06 Dose: 20 mg Furosemide (Lasix) 20 mg IVPUSH BIDDIURETIC [facility] Last Admin: 01/30/17 10:10 Dose: 20 mg Glycopyrrolate () Confirm Administered Dose 1 mg .ROUTE .STK-MED ONE Stop: 01/25/17 09:44 Heparin Sodium (Porcine) (Heparin Lock Flush 100 Units/Ml Syringe) Confirm Administered Dose 500 units .ROUTE .ST-MED ONE Stop: 01/25/17 08:49 Last Admin: 01/25/17 10:28 Dose: 500 units Heparin Sodium (Porcine) (Heparin Lock Flush 100 Units/Ml Syringe) Confirm Administered Dose 500 units .ROUTE .STK-MED ONE Stop: 01/26/17 08:12 Last Admin: 01/26/17 08:12 Dose: Not Given Heparin Sodium (Porcine) (Heparin Lock Flush 100 Units/Ml Syringe) Confirm Administered Dose 1,500 units .ROUTE .STK-MED ONE Stop: 01/30/17 06:50 Last Admin: 01/30/17 07:46 Dose: 1,500 units Hydrocortisone Sodium Succinate (Solu-Cortef) 100 mg IV ASDIRECTED PRN PRN Reason: ALLERGIC REACTION Stop: 01/26/17 09:20 Sodium Chloride (Normal Saline) 1,000 mls @ 999 mls/hr IV ASDIRECTED [facility] Last Admin: 01/22/17 23:20 Dose: 999 mls/hr Sodium Chloride (Normal Saline) 70 mls @ 3 mls/sec IV ASDIRECTED [facility] Last Admin: 01/22/17 22:48 Dose: 3 mls/sec Sodium Chloride (Normal Saline) 1,000 mls @ 999 mls/hr IV ASDIRECTED [facility] Last Admin: 01/22/17 20:50 Dose: 999 mls/hr Doxycycline Hyclate 100 mg/ (Sodium Chloride) 100 mls @ 100 mls/hr IV Q12H [facility] Last Admin: 01/29/17 16:14 Dose: Not Given Lactated Ringer's (Ringers, Lactated) 1,000 mls @ 80 mls/hr IV ASDIRECTED [facility] Last Admin: 01/27/17 01:46 Dose: 125 mls/hr Iron Sucrose 500 mg/ Sodium (Chloride) 275 mls @ 68 mls/hr IV ONETIME ONE Stop: 01/24/17 22:02 Last Admin: 01/24/17 17:26 Dose: 68 mls/hr Iron Sucrose 500 mg/ Sodium (Chloride) 275 mls @ 68 mls/hr IV ONETIME ONE Stop: 01/25/17 22:02 Last Admin: 01/25/17 17:34 Dose: 68 mls/hr Lactated Ringer's (Ringers, Lactated) Confirm Administered Dose 1,000 mls @ as directed .ROUTE .STK-MED ONE Stop: 01/24/17 12:56 Acetaminophen (Ofirmev) Confirm Administered Dose 100 mls @ as directed IV .STK- MED ONE Stop: 01/25/17 11:23 Magnesium Sulfate 2 gm/ Premix 50 mls @ 25 mls/hr IV Q6H [facility] Stop: 01/26/17 18:59 Last Admin: 01/26/17 16:47 Dose: 25 mls/hr Clindamycin Phosphate 900 mg/ (Sodium Chloride) 106 mls @ 212 mls/hr IV ONETIME ONE Stop: 01/30/17 07:44 Last Admin: 01/30/17 07:30 Dose: 212 mls/hr Lactated Ringer's (Ringers, Lactated) Confirm Administered Dose 1,000 mls @ as directed .ROUTE .STK-MED ONE Stop: 01/30/17 07:35 Iopamidol (Isovue-300 (61%)) 100 ml IV . DIRECTED PRN PRN Reason: RADIOLOGY EXAM Stop: 01/23/17 22:09 Last Admin: 01/22/17 22:48 Dose: 100 ml Lidocaine (Lidocaine 4% Top Soln) Confirm Administered Dose 4 ml .ROUTE .STK- MED ONE Stop: 01/24/17 11:43 Lidocaine HCl (Xylocaine 2% Viscous) Confirm Administered Dose 15 ml .ROUTE .STK -MED ONE Stop: 01/24/17 13:03 Last Admin: 01/24/17 13:11 Dose: 15 ml Lidocaine HCl (Xylocaine 4% Top Soln) Confirm Administered Dose 50 ml .ROUTE .STK-MED ONE Stop: 01/24/17 13:03 Last Admin: 01/24/17 13:12 Dose: 50 ml Lidocaine/Epinephrine (Xylocaine 1% With Epinephrine 1:100,000) Confirm Administered Dose 50 ml .ROUTE .STK-MED ONE Stop: 01/24/17 08:10 Last Admin: 01/24/17 13:10 Dose: 10 ml Lidocaine/Epinephrine (Xylocaine 1% With Epinephrine 1:100,000) Confirm Administered Dose 50 ml .ROUTE .STK-MED ONE Stop: 01/30/17 06:50 Last Admin: 01/30/17 07:45 Dose: 10 ml Magnesium Citrate (Citrate Of Magnesia) 296 ml PO ONETIME ONE Stop: 01/27/17 15:01 Last Admin: 01/27/17 15:55 Dose: 296 ml Magnesium Hydroxide (Milk Of Magnesia) 30 ml PO ONETIME ONE Stop: 01/27/17 09:01 Last Admin: 01/27/17 09:59 Dose: 30 ml Meperidine HCl (Demerol) 15 mg IVPUSH ONETIME ONE Stop: 01/22/17 20:40 Last Admin: 01/22/17 21:17 Dose: Not Given Midazolam HCl (Versed 1 Mg/Ml) Confirm Administered Dose 2 mg .ROUTE .STK-MED ONE Stop: 01/24/17 11:43 Midazolam HCl (Versed 1 Mg/Ml) Confirm Administered Dose 2 mg .ROUTE .STK-MED ONE Stop: 01/25/17 09:43 Midazolam HCl (Versed 1 Mg/Ml) Confirm Administered Dose 2 mg .ROUTE .STK-MED ONE Stop: 01/30/17 07:18 Morphine Sulfate (Morphine) 2 mg IVPUSH ONETIME ONE Stop: 01/22/17 21:11 Last Admin: 01/22/17 21:14 Dose: 2 mg Morphine Sulfate (Morphine) 2 mg IVPUSH ONETIME ONE Stop: 01/22/17 23:19 Last Admin: 01/22/17 23:38 Dose: 2 mg Naloxone HCl (Narcan) 0.4 mg IVPUSH Q2M PRN PRN Reason: Respiratory Distress Neostigmine Methylsulfate (Neostigmine) Confirm Administered Dose 5 mg .ROUTE .STK-MED ONE Stop: 01/25/17 09:44 Ondansetron HCl (Zofran) 4 mg IVPUSH ONETIME ONE Stop: 01/22/17 20:40 Last Admin: 01/22/17 21:01 Dose: 4 mg Ondansetron HCl (Zofran) Confirm Administered Dose 4 mg .ROUTE .STK-MED ONE Stop: 01/25/17 09:44 Oxycodone HCl (Oxycodone) 5 - 10 mg PO Q4H PRN PRN Reason: Pain Last Admin: 01/30/17 03:00 Dose: 10 mg Pantoprazole Sodium (Protonix Iv) 40 mg IV Q12H [facility] Last Admin: 01/23/17 02:22 Dose: 40 mg Pantoprazole Sodium (Protonix Iv) 40 mg IV Q12H [facility] Last Admin: 01/26/17 09:39 Dose: 40 mg Polyethylene Glycol (Miralax) 17 gm PO DAILY [facility] Last Admin: 01/29/17 08:38 Dose: Not Given Potassium Chloride (Klor-Con M20) 40 meq PO ONETIME ONE Stop: 01/30/17 10:31 Propofol (Diprivan 20 Ml) Confirm Administered Dose 200 mg .ROUTE .STK-MED ONE Stop: 01/24/17 11:42 Propofol (Diprivan 20 Ml) Confirm Administered Dose 200 mg .ROUTE .STK-MED ONE Stop: 01/24/17 13:13 Propofol (Diprivan 20 Ml) Confirm Administered Dose 200 mg .ROUTE .STK-MED ONE Stop: 01/24/17 13:42 Propofol (Diprivan 20 Ml) Confirm Administered Dose 200 mg .ROUTE .STK-MED ONE Stop: 01/25/17 09:44 Propofol (Diprivan 20 Ml) Confirm Administered Dose 200 mg .ROUTE .STK-MED ONE Stop: 01/30/17 07:18 Rocuronium [place] (Zemuron) Confirm Administered Dose 50 mg .ROUTE .STK-MED ONE Stop: 01/25/17 09:44 Rocuronium [place] (Zemuron) Confirm Administered Dose 50 mg .ROUTE .STK-MED ONE Stop: 01/25/17 10:55 Sodium Chloride (Saline Flush) 10 ml FLUSH ONETIME ONE Stop: 01/22/17 22:09 Last Admin: 01/22/17 22:48 Dose: 10 ml Succinylcholine Chloride (Succinylcholine In Ns Pf) Confirm Administered Dose 200 mg .ROUTE .STK-MED ONE Stop: 01/25/17 09:44 - Exam Quality Assessment: supplemental oxygen General: alert, oriented, cooperative, no acute distress Neck: supple Lungs: Normal respiratory effort, Rales (right lung base) Cardiovascular: Regular Rate, Regular Rhythm Abdomen: soft, no distension Extremities: no edema, no cyanosis Skin: warm, dry Psy/Mental Status: alert, normal affect - Problem List Review Problem List Initiated/Reviewed/Updated: Yes - My Orders Last 24 Hours: My Active Orders 01/30/17 11:31 oxyCODONE 5 - 10 mg PO Q3H PRN 01/31/17 04:00 BASIC METABOLIC PANEL,BMP [CHEM] Timed - Plan Plan:: ASSESSMENT AND PLAN - ABDOMINAL PAIN ASSOCIATED WITH NAUSEA VOMITING AND ASCITES - acute on chronic difficulties. EGD did not reveal significant abnormalities. Ultrasound of the liver showed some evidence for cirrhosis but no vascular issues. I doubt the pain is related to the ascites. Some concern for gastric cancer based on preliminary pathology, final pathology is pending. -Advance diet as tolerated per surgery -Continue current pain control -PPI -Antiemetic therapy as needed -Surgical followup per Dr. Zafar, exploratory laparotomy planned for Tuesday -CEA pending PULMONARY NODULES - indeterminate by CT scan. She is now status post right thoracotomy and wedge resection. Has chest tube in place with minimal residual right apical pneumothorax. -Chest tube cares per Dr. Zafar -Followup pathology HYDRADENITIS - improved on oral antibiotic therapy, doing quite well with minimal pain after surgical intervention. -Surgical followup as per Dr. Zafar -Followup pathology -Antibiotics discontinued STATUS POST RUTH-EN-Y GASTRIC BYPASS SURGERY MAINTENANCE ISSUES -DVT prophylaxis; Lovenox 40 mg subcutaneous daily -GI prophylaxis; Protonix as above -Ward catheter; not indicated -Nutrition; advance diet as tolerated per surgery DISPOSITION - anticipate discharge to home after the hospital stay. There are no active medical issues at this time. Surgical intervention planned for tomorrow. Chest tube cares are being managed by Dr. Zafar. The hospital service will sign off at this time. Please feel free to contact us if additional problems arise. Michael Barker M.D.
[2017-01-31] MEDS: oxyCODONE 5 MG Tab PO PRN ×2 (02:25→08:13)
[2017-01-31] MEDS: Acetaminophen 325 MG Tab PO SCH ×2 (05:19→13:23)
[2017-01-31] MEDS ORDERED: fentaNYL 25 MCG/HR Transdermal Patch TRDERM SCH (07:00)
--- NOTE | 2017-01-31 07:52 | PN ---
DATE OF SERVICE: 01/31/2017 SUBJECTIVE: Rocio's chest tube put out 95 mL of a pink serous drainage. She had 1 unit of packed red blood cells yesterday. Last BM was 01/30/2017. Vital signs have been stable. Pain has been managed. Activity is good. She is n.p.o. for an exploratory laparotomy today. OBJECTIVE: GENERAL: Rocio Wren is a 51-year-old female. She is very sleepy. VITAL SIGNS: TPR is 96.7, 59, 18. Blood pressure 97/66. HEENT: Negative. NECK: Supple. HEART: Regular rate and rhythm. LUNGS: Chest tube in place. Lungs are otherwise clear. ABDOMEN: Negative. EXTREMITIES: SCDs are on. ASSESSMENT: 1. Adenocarcinoma of axilla. 2. Right thoracoscopy with right segment of the right lower lobe removed, wedge biopsy of medial bronchial segment of the right lower lobe. Mediastinal lymph node biopsy and insertion of a Parr catheter. Left subclavian vein from multiple pulmonary nodules and limited peripheral venous access on 01/25/2017. 3. Parr catheter placement for long-term IV needs on 01/30/2017. PLAN: Remain n.p.o. Fentanyl patch 25 mcg was placed, orders to be written postoperatively. Shweta Newby PA-C /[id number]
[2017-01-31] MEDS: Pantoprazole 40 MG Tab.CR PO SCH (08:08)
--- NOTE | 2017-01-31 08:13 | PN ---
DATE OF SERVICE: 01/29/2017 The patient has been afebrile with stable vital signs. Oral intake is fair. The pathology report did come back showing an adenocarcinoma. The tumor markers are suggestive of a gastric primary that does show a significant pattern. This would make some sense, in terms of the ascites. I reviewed the CT scan, and again we are not seeing any obvious gastric or other mass. 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 The plan will be to proceed with exploratory laparotomy on Tuesday, and if an epigastric tumor is identified, this would be resected, as the patient is a gastric bypass status, and problems such as bleeding and/or obstruction would likely present a problem over time without the stomach being accessible by endoscopic approaches. Otherwise, her Parr catheter, due to the hypermobility of her chest wall, continues to be quite positional. We will replace that tomorrow so that she has a good IV in, and we will start some TPN at that time. Juan Zafar MD /[id number]
[2017-01-31] MEDS: Docusate Sodium 100 MG Cap PO SCH ×2 (08:17→20:38)
--- NOTE | 2017-01-31 08:43 | CR ---
Chest 1V Frontal HISTORY: chest tube in place COMPARISON: 01/28/2017. FINDINGS: Tiny right apical pneumothorax is stable compared with yesterday's exam. Right chest tube remains in place. Atelectasis at the right lung base is stable. Remainder the chest is clear. Cardio mediastinal silhouette is within normal limits. Left subclavian central line is again noted. The tip overlies the superior vena cava. No other interval change is identified. IMPRESSION: Stable chest compared with yesterday's exam. Tiny right apical pneumothorax is unchanged . Right chest tube is stable with adjacent atelectasis right lung base.
[2017-01-31] MEDS ORDERED: CHECK FENTANYL PATCH DAILY TOP SCH ×2 (09:00)
[2017-01-31] MEDS ORDERED: Dexamethasone 4 MG/ML SDV ONE (11:13)
[2017-01-31] MEDS ORDERED: Rocuronium 50 MG/5 ML Vial ONE (11:13)
[2017-01-31] MEDS ORDERED: Propofol 200 MG/20 ML SDV ONE (11:13)
[2017-01-31] MEDS ORDERED: Ondansetron 4 MG/2 ML SDV ONE (11:13)
[2017-01-31] MEDS ORDERED: fentaNYL 250 MCG/5 ML SDV ONE ×2 (11:13→12:57)
[2017-01-31] MEDS ORDERED: Succinylcholine/Normal Saline 200 MG/10 ML Syringe ONE (11:13)
[2017-01-31] MEDS: VERIFY FENTANYL PATCH TOP SCH ×2 (11:18→21:43)
[2017-01-31] MEDS ORDERED: cefOXitin 2 GM in Sodium Chloride 0.9% 50 ML IV ONE (12:00)
[2017-01-31] MEDS: fentaNYL/Normal Saline 600 MCG/30 ML PCA Vial IV PRN (12:04)
[2017-01-31] MEDS ORDERED: Meropenem 500 MG SDV ONE (12:58)
[2017-01-31] MEDS ORDERED: Dextrose 5%-Lactated Ringers 1,000 ML IV SCH ×2 (17:15→18:30)
[2017-01-31] MEDS: fentaNYL/Normal Saline 600 MCG/30 ML PCA Vial IV SCH ×2 (18:19→23:03)
[2017-01-31] MEDS: 1: AA 5%/Calcium/D15W/Lytes 1,000 ML with MVI, Adult with Vitamin K 10 ML, Chromium/Copp IV SCH ×3 (18:21)
[2017-01-31] MEDS: cefOXitin 2 GM in Sodium Chloride 0.9% 50 ML IV SCH ×2 (18:21→23:40)
[2017-01-31] MEDS: Albumin 25% 12.5 GM in Premix Bag 1 BAG IV SCH ×3 (20:37→23:41)
[2017-01-31] MEDS: Acetaminophen 1,000 MG in Premix Bag 1 BAG IV SCH (23:03)
[2017-02-01] MEDS: Albumin 25% 12.5 GM in Premix Bag 1 BAG IV SCH ×3 (01:21→22:28)
[2017-02-01] MEDS: 1: AA 5%/Calcium/D15W/Lytes 1,000 ML with MVI, Adult with Vitamin K 10 ML, Chromium/Copp IV SCH ×6 (04:04→14:56)
[2017-02-01] MEDS: Acetaminophen 1,000 MG in Premix Bag 1 BAG IV SCH ×3 (04:06→17:17)
[2017-02-01] MEDS: cefOXitin 2 GM in Sodium Chloride 0.9% 50 ML IV SCH ×3 (05:40→18:16)
--- NOTE | 2017-02-01 07:59 | PN ---
DATE OF SERVICE: 01/30/2017 The patient has been afebrile with stable vital signs. No major problems have been noted overnight. The Aprr catheter was replaced without incident. Her hemoglobin is 9.1 and will give 1 unit of packed RBCs in preparation for the exploratory laparotomy tomorrow. Plan will be to proceed with laparotomy as noted with most likely a gastric resection, depending on operative findings. The patient is aware that there may be other findings requiring operations other than the gastrectomy, and potential risks were reviewed including bleeding, infection, injury to underlying viscera, possible leaks from the various GI tract closure, as well as possibility of cardiopulmonary, septic, or hemorrhagic complications leading to were discussed, and the patient wishes to proceed. Surgery will be scheduled for tomorrow afternoon. Juan Zafar MD /[id number]
[2017-02-01] MEDS ORDERED: Dextrose 5%-Lactated Ringers 1,000 ML IV SCH (08:00)
[2017-02-01] MEDS: Pantoprazole 40 MG Vial IV SCH (08:02)
--- NOTE | 2017-02-01 08:11 | OR ---
DATE OF PROCEDURE: 01/30/2017 PREOPERATIVE DIAGNOSIS: Dysfunctional left-sided Parr catheter. POSTOPERATIVE DIAGNOSIS: Dysfunctional left-sided Parr catheter. PROCEDURE: 1. Placement of a double-lumen Parr catheter via right internal jugular vein approach (79842). 2. Removal of a left-sided Parr catheter (62709). ANESTHESIA: Local plus IV sedation. INDICATION FOR PROCEDURE: The patient recently had a left-sided Parr catheter placed via left subclavian vein, this likely related to the patient's gastric bypass status and hypermobility of her chest wall. The catheter had been quite problematic in terms of occluding, and the plan is to proceed with replacement of the Parr catheter. In this case, we will likely place it via right internal jugular vein so as to avoid similar problems with the new catheter. Potential risks including bleeding, infection, pneumothorax and such were reviewed, and the patient wishes to proceed. DETAILS OF PROCEDURE: The patient was taken to the operating room and placed in a supine position. IV sedation was administered, after which the upper chest and neck areas were prepped and draped. Using the ultrasound, the site of the jugular vein at the central approach on the right side was marked and that area was anesthetized with 1% lidocaine mixed with Marcaine and the vein then cannulated, and the guidewire manipulated from there into the superior vena cava. Three fingerbreadths below the clavicle then, some additional local was injected, as well as between the two sites, and a small puncture wound placed at that lower level and double-lumen Parr catheter was then tunneled between the two puncture sites and then cut off such that the tip would lie within the right atrium. Over the introducer and peel-away catheter, the Parr catheter was then placed without difficulty. Good in and outflow was noted. Fluoroscopic examination showed no complications and good catheter positioning. Ports were flushed with heparinized saline and the skin at the original puncture site closed with 4-0 Vicryl subcuticular stitch and Steri-Strips, and the catheter sutured to skin with 3-0 nylon stitch. After the dressing was applied and the IV switched over to the new catheter, the old catheter was then removed. After removal of stitch, this was simply taken out, as it had not been long enough to have the fibrous button have significant ingrowth. Dressing was applied. The patient was taken to the recovery room in satisfactory condition. Juan Zafar MD /[id number]
--- NOTE | 2017-02-01 09:03 | CR ---
Chest 1V Frontal HISTORY: follow up CT removal COMPARISON: 01/29/2017. FINDINGS: Portable chest, 0407 hours. Right chest tube has been removed. No residual or recurrent pneumothorax is identified. Postoperati ve changes right lung base are stable. Remainder the chest is clear. Cardiomediastinal silhouette is within normal limits. Left subclavian central line has been removed. Right jugular central line has been placed with the tip overlies the mid SVC. Remainder the exam is unchanged. IMPRESSION: Stable appearance of the chest post right chest tube removal. Central line is now in luda ce from a right jugular approach. Position is satisfactory.
--- NOTE | 2017-02-01 09:05 | OR ---
DATE OF PROCEDURE: 01/24/2017 PREOPERATIVE DIAGNOSES: 1. Upper abdominal pain. 2. Right axillary mass. 3. Multiple pulmonary nodules. POSTOPERATIVE DIAGNOSES: 1. Normal upper GI endoscopic examination, status post Corby-en-Y gastric bypass. 2. Grossly normal flexible bronchoscopy (bronchoalveolar lavage, fluid return was slightly cloudy). 3. Right axillary mass (suspicious for malignancy on frozen section). OPERATIVE PROCEDURE: 1. Upper GI endoscopy (69701). 2. Flexible bronchoscopy with tracheobronchial washings and bronchoalveolar lavage to superior segment of right lower lobe (22649). 3. Excision of right axillary mass, including associated axillary fascia (98090). ANESTHESIA: Local plus IV sedation. INDICATION FOR PROCEDURE: The patient presents with a complex picture of upper abdominal pain and ascites, as well as an inflammatory appearing mass in the right axilla. She also, on chest x-ray and CT scan, has multiple small pulmonary nodules. The plan is to proceed with upper GI endoscopy to look at that area for potential causes for the upper abdominal pain and ascites. We will also then proceed with a flexible bronchoscopy with biopsies and/or primary lavage as indicated, and lastly plan would be for excision of the right axillary mass. We will obtain a frozen section on this so as to facilitate decision-making regarding additional testing. Potential risks of the procedure including bleeding, infection, aspiration of gastric contents were reviewed, and the patient wishes to proceed. DETAILS OF PROCEDURE: The patient was taken to the room and placed in a supine position. After IV sedation was administered, initially the upper GI endoscope was passed orally through the length of esophagus into the gastric pouch and from there 20 cm into the Corby limb. This examination was entirely normal with there being no areas of inflammation or stricturing or other abnormalities during the entire examination. The scope was then withdrawn and the above findings reconfirmed. The patient had nasal passages and hypopharynx anesthetized with topical lidocaine, and the flexible bronchoscope was then passed through the left side of the nose. Visualized hypopharynx and larynx were unremarkable. Cord motion was symmetrical. The tracheobronchial examination was grossly entirely normal with there being no areas of reddening, narrowing, or abnormal secretions. To that point, tracheobronchial washings were diffusely obtained. The area that had two of the more dominant nodules on CT scan was the superior segment of right lower lobe. Given this, bronchoalveolar lavage was accomplished in that area with injection of 200 mL of saline. This fluid was then evacuated and sent for microbiologic and cytologic workup. At that point, no further problems were noted with the bronchoscopic phase of the procedure. Attention was then taken to the axilla with the arm extended at a right angle from the torso. That area was then prepped and draped. An elliptical incision removing some of the overlying skin was made and carried down through the skin and subcutaneous tissue. This mass involved the axillary fascia as well, and this whole area was then excised with a length of the incision being around 8 cm. All the gross mass was removed. Cultures of this were obtained, and also frozen section was obtained. The diagnosis is far from certain but there was some suspicion of this being a malignant process. The incision was then irrigated with antibiotic-containing saline solution and closed with 2 layers of 3-0 Vicryl stitch deep and then jaime for the skin. Dressing was applied. The patient was taken to the recovery room in satisfactory condition. Juan Zafar MD /[id number]
[2017-02-01] MEDS: VERIFY FENTANYL PATCH TOP SCH ×2 (09:09→20:19)
[2017-02-01] MEDS: Docusate Sodium 100 MG Cap PO SCH ×2 (09:10→20:19)
[2017-02-01] MEDS: fentaNYL/Normal Saline 600 MCG/30 ML PCA Vial IV SCH ×2 (11:35→23:22)
[2017-02-02] MEDS: Albumin 25% 12.5 GM in Premix Bag 1 BAG IV SCH ×4 (01:20→22:08)
[2017-02-02] MEDS: 1: AA 5%/Calcium/D15W/Lytes 1,000 ML with MVI, Adult with Vitamin K 10 ML, Chromium/Copp IV SCH ×9 (01:25→12:03)
[2017-02-02] MEDS: cefOXitin 2 GM in Sodium Chloride 0.9% 50 ML IV SCH ×2 (01:28→05:28)
[2017-02-02] MEDS: Ondansetron 4 MG/2 ML SDV IV PRN ×3 (05:24→15:33)
[2017-02-02] MEDS: hydrOXYzine HCl 25 MG Tab PO PRN (05:42)
[2017-02-02] MEDS: Scopolamine 1.5 MG Transdermal Patch TOP SCH (06:15)
[2017-02-02] MEDS: Metoclopramide 10 MG/2 ML SDV IV PRN (06:57)
[2017-02-02] MEDS ORDERED: Central Total Parenteral Nutrition Bag SCH (07:15)
[2017-02-02] MEDS: Pantoprazole 40 MG Vial IV SCH (07:30)
--- NOTE | 2017-02-02 08:30 | PN ---
DATE OF SERVICE: 02/02/2017 SUBJECTIVE: Rocio states her pain was controlled until she slept too long and did not push her NURSE SPECIAL, so she woke up with pain and is having a difficult time with nausea. She has a scopolamine patch placed. She has been up ambulating. TPN is running without difficulty. Reports some peripheral edema. REVIEW OF SYSTEMS: Remainder of review of systems negative for any pertinent positives and negatives. OBJECTIVE: GENERAL: Rocio Wren is a 51-year-old female. She is sitting on the edge of the bed. VITAL SIGNS: TPR is 99.9, 86, 16, blood pressure 112/59, O2 is 93%. HEENT: Negative. NECK: Supple. HEART: Regular rate and rhythm. LUNGS: Reveal decreased breath sounds. She does have rhonchi with coughing. ABDOMEN: Dressings are dry and intact. JELANI drain has put out 90 mL of a pink serous drainage. EXTREMITIES: Reveal 1+ peripheral edema. ASSESSMENT: 1. Exploratory laparotomy with lysis of adhesion and partial resection of transverse colon with removal of a portion of intraperitoneal mesh and placement of tube jejunostomy for extensive nonresectable gastric carcinoma. A portion of the transverse colon, adherent to intraperitoneal mesh. Date of surgery 01/31/2017. 2. Replacement of Parr catheter, right intrajugular vein for dysfunctional Parr catheter on 01/30/2017. 3. Right thoracoscopy, right superior segment of the right lower lobe. Wedge biopsy of medial segment of the right lower lobe. Mediastinal lymph node biopsy. Insertion of Parr catheter, right subclavian vein for limited peripheral access and multiple pulmonary nodules, the date is 01/25/2017. 4. Upper gastrointestinal flex bronchoscopy with total bronchial washing and BAL of the right lower lobe and excision of right axillary mass on 01/24/2017. PLAN: 1. Decrease TPN therapy to 40 mL/h, same content. 2. Jevity 1.2 at 60 mL/h with 250 mL fluid flushes 4 times a day to start the Jevity 20 mL per hour. Check the gastric residual volume after 4 hours. Hold the gastrostomy tube feeding if it is above 250 mL. If the volume is less than 250 mL, increase the rate by 20 mL. Repeat steps 2 and 3 until the patient reaches the goal of 60 mL/h. 3. Check CBC, CMP, mag, phos in a.m. 4. Referral will be made to oncology, [place], [place] for gastric adenocarcinoma stage IV. 5. Consult discharge planning for gastrostomy tube feedings at home, and if she does prefer home healthcare, she prefers to go with the [facility]. Good pulmonary toilet encouraged. Rx Acapella to use 10 times every hour while awake. 6. We will evaluate p.r.n. or in a.m. Shweta Newby PA-C /[id number]
[2017-02-02] MEDS: SCOPOLAMINE PATCH CHECK TOP SCH (10:16)
[2017-02-02] MEDS: VERIFY FENTANYL PATCH TOP SCH ×2 (10:17→20:14)
[2017-02-02] MEDS: Docusate Sodium 100 MG Cap PO SCH ×2 (10:20→20:13)
[2017-02-02] MEDS ORDERED: Prochlorperazine 10 MG/2 ML SDV IVPUSH PRN (11:29)
[2017-02-02] MEDS: fentaNYL/Normal Saline 600 MCG/30 ML PCA Vial IV SCH ×2 (12:38→22:18)
[2017-02-02] MEDS ORDERED: fentaNYL 50 MCG/HR Transdermal Patch TRDERM SCH (18:00)
[2017-02-03] MEDS: Albumin 25% 12.5 GM in Premix Bag 1 BAG IV SCH ×5 (02:16→22:46)
[2017-02-03] MEDS ORDERED: Central Total Parenteral Nutrition Bag SCH (07:45)
[2017-02-03] MEDS: Pantoprazole 40 MG Vial IV SCH (07:52)
--- NOTE | 2017-02-03 08:32 | PN ---
DATE OF SERVICE: 02/01/2017 The patient has been afebrile with stable vital signs. No major problems noted overnight. The operative findings were discussed at length with the patient, and she is aware of the seriousness of the problem. Urine output has been slightly high. JELANI drainages are serous, and we will continue to empty that, so as to minimize chances of getting ascitic leak from the incisions. Otherwise, we will continue the TPN. Dietary will see the patient and likely started on some tube feedings tomorrow via the jejunostomy tube. Juan Zafar MD /[id number]
[2017-02-03] MEDS ORDERED: Morphine 10 MG/0.5 ML Oral Syringe PO PRN (09:39)
[2017-02-03] MEDS ORDERED: LORazepam ORAL Concentrate 1MG/0.5ML U/D BUCCAL PRN (09:42)
--- NOTE | 2017-02-03 09:43 | PN ---
DATE OF SERVICE: 02/03/2017 SUBJECTIVE: Rocio is resting better. Temp max 100.3. She states her pain is controlled. She has been up ambulating. REVIEW OF SYSTEMS: Remainder of review of systems negative for any pertinent positives and negatives. OBJECTIVE: GENERAL: Rocio Wren is a 51-year-old female. She is alert and orientated. Color pale. VITAL SIGNS: TPR 98.2, 97, 18. Blood pressure 104/54. HEENT: Negative. NECK: Supple. HEART: Regular rate and rhythm. ABDOMEN: Dressings dry and intact. Abdominal binder is on. She does have gastrostomy tube feedings, tolerating them well. Her JELANI drain put out 610 of a pink serous drainage. EXTREMITIES: Revealed trace peripheral edema. ASSESSMENT: Gastric adenocarcinoma stage IV. PLAN: 1. Continue TPN same rate and content. 2. Dressing off, may shower. 3. Check CBC, CMP, mag, phos. 4. Good pulmonary toilet encouraged. 5. We will evaluate p.r.n. or in a.m. Shweta Newby PA-C /[id number]
[2017-02-03] MEDS: SCOPOLAMINE PATCH CHECK TOP SCH (10:06)
[2017-02-03] MEDS: Docusate Sodium 100 MG Cap PO SCH ×2 (10:06→20:44)
[2017-02-03] MEDS: VERIFY FENTANYL PATCH TOP SCH ×2 (10:07→20:46)
--- NOTE | 2017-02-03 12:53 | OR ---
DATE OF PROCEDURE: 01/25/2017 PREOPERATIVE DIAGNOSES: 1. Limited peripheral venous access. 2. Multiple pulmonary nodules. POSTOPERATIVE DIAGNOSIS: 1. Limited peripheral venous access. 2. Multiple pulmonary nodules. OPERATIVE PROCEDURE: 1. Insertion of double-lumen Parr catheter (76122). 2. Right thoracoscopy with. a. Right superior segmentectomy (77391). b. Wedge biopsy of medial basilar segment, right lower lobe (27901). c. Excision of mediastinal lymph node (inferior pulmonary ligament noted adjacent to the inferior pulmonary vein) (62275). ANESTHESIA: General. PRODUCTION STAGE MANAGER: Shweta Newby PA-C. INDICATION FOR PROCEDURE: The patient presented this over the weekend with an axillary mass with frozen section which yesterday was suspicious for a malignancy. In addition to this, the patient was noted to have multiple pulmonary nodules. These were too small to reasonably expect a diagnosis being reached by the percutaneous needle biopsies. Given this, the plan is to proceed with a thoracoscopy with biopsies. The two most dominant nodules are located in the superior segment of right lower lobe, and we plan to proceed with essentially a resection of that segment and any additional specific findings would be biopsied as indicated. Potential risks of the procedure including bleeding, infection, injury to underlying viscera and such were reviewed in addition to the Parr catheter. The complication such as pneumothorax, occlusion or infection of the catheter were likewise reviewed, and the patient wishes to proceed. DETAILS OF PROCEDURE: The patient was taken to the operating room, and after double lumen endotracheal tube was placed; initially, the upper chest and neck areas were prepped and draped. The left subclavian vein was cannulated, guidewire passed, and manipulated into the superior vena cava. Additional stab wound was then made 4 fingerbreadths below the original puncture site and the subclavian area, and the double-lumen Parr catheter, which had been flushed with heparinized saline was tunneled such that the fibrous button was just inside the skin of the lower incision. The catheter was cut such that the tip would lie into the area of the superior vena cava right atrial junction over the introducer and peel-away catheter. The Parr catheter was then deployed without difficulty and sutured to skin with some 3-0 nylon stitch. The original puncture site was closed with 4-0 Vicryl subcuticular stitch, and a Steri-Strip applied. The ports were flushed with heparinized saline once again and good in and outflow were noted. Subsequent chest x-ray showed good catheter position without complications. The patient was now turned into left lateral decubitus position, and the right chest surrounding areas were prepped and draped. Mass felt by percussion. The lower most aspect of the pleural space was entered in the mid axillary line with a 12 mm trocar, and the wound then deflated on the right side. A 5 mm posterior trocar and a 12-mm anterior trocar was then placed and the area examined. The lung itself appeared to be fairly normal in appearance. There were no pleural findings in terms of fluid or the nodularity. There was a slight thickening along the medial basilar segment of the right lower lobe, and this area was initially excised in of wedge resection. Then based on the preoperative CT scan, the superior segmentectomy of right lower lobe was accomplished. LILLY jaime were used to continue this down through the hilum of the lower lobe, where the bronchus of the vein and artery leading to the superior segment were divided with LILLY jaime as well. The specimen was then placed into a specimen bag and retrieved through the anterior trocar site. No abnormality noted was that of a fairly prominent lymph node within the inferior pulmonary ligament. This was more or less adjacent to the inferior pulmonary vein. There is no other significant lymphadenopathy closely visualized. Given this, this lymph node was excised as well and sent as a separate specimen as well. At this point, no further problems noted. A 32-Japanese chest tube was placed through the anterior trocar site, and the lung then reinflated. No air leaks or other complications were noted. The remaining trocars were removed, and the skin at the remaining sites closed with jaime, and the chest tube fixed with a #2 Ethibond stitch. Chest x-ray showed adequate re-expansion of the along. The patient was taken to the recovery room in satisfactory condition. Physician training and development assistant, Shweta Newby, played an essential role in assisting in this case, helping to position the patient, retract structures as needed, suturing and cutting sutures when indicated. Her presence improved the patient's safety and decreased operative time. Juan Zafar MD /[id number]
[2017-02-03] MEDS: 1: AA 5%/Calcium/D15W/Lytes 1,000 ML with MVI, Adult with Vitamin K 10 ML, Chromium/Copp IV SCH ×3 (13:14)
[2017-02-03] MEDS: hydrOXYzine HCl 25 MG Tab PO PRN ×2 (13:30→20:43)
[2017-02-03] MEDS: oxyCODONE 5 MG Tab PO PRN (19:50)
[2017-02-04] MEDS: oxyCODONE 5 MG Tab PO PRN ×4 (00:11→10:50)
[2017-02-04] MEDS: Ondansetron 4 MG/2 ML SDV IV PRN ×2 (00:17→07:31)
[2017-02-04] MEDS: hydrOXYzine HCl 25 MG Tab PO PRN ×3 (00:44→12:42)
[2017-02-04] MEDS: Albumin 25% 12.5 GM in Premix Bag 1 BAG IV SCH ×4 (00:57→23:52)
[2017-02-04] MEDS: Metoclopramide 10 MG/2 ML SDV IV PRN (02:33)
[2017-02-04] MEDS ORDERED: Central Total Parenteral Nutrition Bag SCH (08:00)
--- NOTE | 2017-02-04 08:30 | OR ---
DATE OF PROCEDURE: 01/31/2017 PREOPERATIVE DIAGNOSIS: Probable gastric adenocarcinoma. POSTOPERATIVE DIAGNOSES: 1. Extensive nonresectable gastric carcinoma. 2. Portion of transverse colon adherent to intraperitoneal mesh. OPERATIVE PROCEDURES: Exploratory laparotomy with lysis of adhesions: 1. Partial resection of transverse colon adherent to portion of the intraperitoneal mesh (07846). 2. Removal of the portion of the intraperitoneal mesh (30824). 3. Placement of tube jejunostomy (02221). ANESTHESIA: General. INDICATION FOR PROCEDURE: The patient re-presented last week with a picture of a mass involving the right axilla with some posterior cervical lymph nodes that were enlarged, as well as multiple pulmonary nodules. The patient also, with presentation, had new onset of ascites and abdominal pain for the previous [address] of the abdomen did not show anything obvious in terms of primary tumor site. The pathologic workup of the excised mass in the axilla was a metastatic adenocarcinoma, and workup led to the opinion of the pathologist that this is likely a gastric primary. The patient is status post Corby-en-Y gastric bypass and upper endoscopy done last week, which would include the gastric pouch, did not show any obvious pathology. However, the entire bypassed portion of the stomach obviously could not be evaluated. The plan at this point will be to proceed with exploratory laparotomy to clarify the primary tumor site. Additionally, if gastric carcinoma is confirmed, it would be beneficial to resect this, if this is feasible, to avoid problems with bleeding and more particularly closed loop obstruction, if this happens to be an antral carcinoma, which could at some point occlude the outlet of the stomach creating a closed loop obstruction. The potential risks of procedure including bleeding, infection, injury to underlying viscera, possibility of the tumor not being resectable were all reviewed, and the patient wishes to proceed. OPERATIVE FINDINGS: Upon entering the peritoneal cavity, the patient had somewhat dark, but otherwise serous ascitic fluid. This was collected and sent for cytology. General exploration showed the entire bypassed portion of the stomach with a thick leathery texture. There was not any overt tumor on the exterior, but essentially the entire bypassed portion of the stomach was involved in this process. Further dissection revealed this to be densely adherent to the pancreas as well. When elevating the stomach, the pancreas came up more or less as a single anatomic unit fused with the stomach. Given this, it was felt this was not resectable. There was some probable tumor in the very depths of the pelvis adherent to the rectum. Other than that, with no obviously biopsiable tumor sites, it is felt we would prefer not to open the bypassed stomach, as this may very well not heal and result in additional complications. The overall finding was that of an unresectable gastric carcinoma. 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 Again search for definable tumor nodules that could be biopsied safely were not identified. The patient had a previous mesh placement, and this portion of transverse colon was adherent to that. In order to get the dissection up into area of the stomach, this portion had to be excised, along with a portion of the intraperitoneal mesh. At this point to facilitate the patient's postoperative nutritional status, a tube jejunostomy was also then placed. DESCRIPTION OF PROCEDURE: The patient was taken to the operating room, and after general endotracheal anesthesia was induced, a Ward catheter was inserted and the abdomen was prepped and draped. An upper midline incision was made and carried down through the skin and subcutaneous tissue. This extended somewhat below the mesh, which was essentially in the upper half of the midline of the abdomen. Peritoneal cavity was entered at that level and then some omental dissection was continued across the mesh. The area of the dense adherence to the Shapleigh-Santiago mesh and the left side of the transverse colon were then identified, and a portion of the colon wall excised. That portion of the mesh was then also excised. After aspiration of the peritoneal fluid, the exploration revealed the above findings, and again it was not felt that it will be safe to biopsy any of the areas of involvement, as these would likely have a high chance of nonhealing and the overall gross picture was consistent with an extensive gastric primary, consistent with the evaluation of the metastatic tumor within the axilla. At this point, the jejunojejunostomy from the previous Corby-en-Y gastric bypass was identified and, roughly 20 cm distal to that, a tube jejunostomy was created using a 16- Nauruan Ward catheter. This was a standard Witzel jejunostomy placed into the antimesenteric border of the jejunum, after the tube had been pulled through the abdominal wall in the left mid lateral abdominal wall. Once the Witzel tunnel was created around the tube and had been inflated with 4 mL of saline, the four corners around the tube, as emerged from the Witzel tunnel, were secured to the abdominal wall with 3-0 Vicryl stitches, which were also the sutures used for the creation of the Witzel tunnel. This appeared to securely affix the jejunostomy tube. Sutures just proximal and distal to the point of the attachment of the abdominal wall with 3-0 Vicryl stitch were also placed to avoid acute angulation at that level. At this point, a [place] drain was placed in the right mid abdomen and taken down into the pelvis. This will be used to hopefully vent the abdomen for a period of time until we are able to get adequate healing of the fascial repair, i.e. to avoid ongoing peritoneal leak. The divided Shapleigh-Santiago mesh was then reapproximated with #1 Prolene stitch and then the fascia overlying this approximated with #2 Vicryl stitch. The deeper subcutaneous tissue was then approximated with 3-0 Vicryl stitch as well and the skin with jaime. The drain was affixed with some 3-0 Vicryl stitch as well. Per the patient's request the jaime at the axilla excision site were removed. It was notable that all gross tumor from that area had been removed exactly a week prior. There is already some obvious regrowth of tumor in the lateral aspect of that incision, indicating this is a tumor with an extremely short doubling time. The chest tube was also removed at this time, and the patient was taken to the recovery room in satisfactory condition. Physician blacksmith assistant, Shweta Newby, played an essential role in assisting in this case, helping to position the patient, retract structures as needed, as well as suturing and stapling when indicated. Her presence improved patient's safety and decreased operative time. Juan Zafar MD /[id number]
[2017-02-04] MEDS: Pantoprazole 40 MG Tab.CR PO SCH (09:13)
[2017-02-04] MEDS: Docusate Sodium 100 MG Cap PO SCH (09:13)
[2017-02-04] MEDS: SCOPOLAMINE PATCH CHECK TOP SCH (09:14)
[2017-02-04] MEDS: VERIFY FENTANYL PATCH TOP SCH ×2 (09:15→22:00)
[2017-02-04] MEDS: Ondansetron 4 MG Tab.DIS PO SCH ×4 (09:17→20:26)
--- NOTE | 2017-02-04 09:52 | PN ---
DATE OF SERVICE: 02/04/2017 SUBJECTIVE: Rocio's pain medicines were managed to where she is now getting oxycodone 10 mg every 3 hours. She has a fentanyl patch on 50 mcg, and she is getting Atarax orally 100 mg every 4 hours p.r.n. Nausea continues to bother her. She does have a scopolamine patch on. She has been getting Reglan and Zofran p.r.n. IV, and this is manageable. Her last TPN bag will be empty, it has about one fourth of the bag left. REVIEW OF SYSTEMS: Remainder of review of systems negative for any pertinent positives and negatives. OBJECTIVE: GENERAL: Rocio Wren is a 51-year-old female. She is quite sleepy. VITAL SIGNS: TPR is 99.6, 107, 18. Blood pressure 123/65. O2 saturations by pulse oximetry are 95% with 2 L; when she was up ambulated to the bathroom, it was 83%. HEENT: Negative. NECK: Supple. In axillary area, that incision is healing well. HEART: Regular rate and rhythm. LUNGS: Reveal decreased breath sounds bilaterally. ABDOMEN: Stapled incision intact, abdominal binder is on. EXTREMITIES: Without peripheral edema. ASSESSMENT: Gastric adenocarcinoma, stage IV. PLAN: Discontinue TPN when this bag is in; saline lock IV. Reglan 10 mg p.o. q.6 hours scheduled. Zofran ODT 4 mg every 4 hours scheduled. Continue scopolamine patch. Her insurance company will pay for her scopolamine patch with a $35 co-pay. Evaluate for home O2 use and plan discharge in a.. Shweta Newby PA-C /[id number]
[2017-02-04] MEDS: Metoclopramide 10 MG Tab PO SCH ×3 (10:52→20:31)
[2017-02-04] MEDS ORDERED: LORazepam 0.5 MG Tab PO PRN (14:00)
[2017-02-04] MEDS ORDERED: oxyCODONE 10 MG/0.5 ML ORAL U/D PO PRN (17:29)
[2017-02-04] MEDS ORDERED: fentaNYL 75 MCG/HR Transdermal Patch TRDERM SCH (17:30)
[2017-02-04] MEDS: Morphine 10 MG/0.5 ML Oral Syringe PO PRN ×2 (18:28→21:37)
[2017-02-04] MEDS: LORazepam 2 MG/ML MDV IVPUSH PRN (21:40)
[2017-02-04] MEDS: Docusate Sodium Liquid 100 MG/10 ML UD Cup JTUBE SCH (22:17)
[2017-02-05] MEDS: Albumin 25% 12.5 GM in Premix Bag 1 BAG IV SCH ×2 (02:13→04:25)
[2017-02-05] MEDS: Ondansetron 4 MG Tab.DIS PO SCH ×6 (02:16→19:32)
[2017-02-05] MEDS: Morphine 10 MG/0.5 ML Oral Syringe PO PRN ×2 (02:19→20:35)
[2017-02-05] MEDS: LORazepam 2 MG/ML MDV IVPUSH PRN ×3 (04:28→20:34)
[2017-02-05] MEDS: Scopolamine 1.5 MG Transdermal Patch TOP SCH (06:06)
[2017-02-05] MEDS: Metoclopramide 10 MG Tab PO SCH ×4 (08:52→19:32)
[2017-02-05] MEDS: Docusate Sodium Liquid 100 MG/10 ML UD Cup JTUBE SCH ×2 (08:53→21:59)
[2017-02-05] MEDS: Pantoprazole 40 MG Tab.CR PO SCH (08:53)
[2017-02-05] MEDS ORDERED: Bisacodyl 10 MG Supp RECTAL PRN (08:54)
[2017-02-05] MEDS: SCOPOLAMINE PATCH CHECK TOP SCH (08:54)
[2017-02-05] MEDS: VERIFY FENTANYL PATCH TOP SCH ×2 (09:15→21:58)
[2017-02-05] MEDS ORDERED: Bisacodyl 10 MG Supp RECTAL ONE (10:00)
[2017-02-05] MEDS ORDERED: Magnesium Citrate Solution 296 ML Bottle PO ONE (10:00)
[2017-02-05] MEDS: Piperacillin/Tazobactam 3.375 GM in Sodium Chloride 0.9% 50 ML IV SCH (21:43)
[2017-02-06] MEDS ORDERED: Dextrose 5%-Lactated Ringers 1,000 ML IV SCH ×2 (00:15→07:30)
[2017-02-06] MEDS ORDERED: Lactated Ringers 500 ML IV ONE (00:15)
[2017-02-06] MEDS: Morphine 10 MG/0.5 ML Oral Syringe PO PRN ×2 (00:18→01:32)
[2017-02-06] MEDS: Ondansetron 4 MG Tab.DIS PO SCH ×3 (00:36→03:57)
[2017-02-06] MEDS: LORazepam 2 MG/ML MDV IVPUSH PRN ×3 (01:48→09:26)
[2017-02-06] MEDS: Piperacillin/Tazobactam 3.375 GM in Sodium Chloride 0.9% 50 ML IV SCH (03:44)
[2017-02-06 03:55] VITALS: BP 101/53
[2017-02-06] MEDS: fentaNYL/Normal Saline 600 MCG/30 ML PCA Vial IV PRN (07:58)
[2017-02-06] MEDS: Docusate Sodium Liquid 100 MG/10 ML UD Cup JTUBE SCH (08:02)
[2017-02-06] MEDS ORDERED: Piperacillin/Tazobactam/Dext 3.375 GM in Premix Bag 1 BAG IV SCH (09:00)
[2017-02-06] MEDS: SCOPOLAMINE PATCH CHECK TOP SCH (09:27)
[2017-02-06] MEDS: VERIFY FENTANYL PATCH TOP SCH (09:27)
--- NOTE | 2017-02-07 08:59 | PN ---
DATE OF SERVICE: 02/05/2017 The patient has been afebrile with stable vital signs. O2 sats on 2 L nasal cannula are running around 90%. Overall, her condition has worsened in terms of now developing nausea and vomiting. The tube feedings continue to be tolerated, so this is likely related to progressive tumor in the uppermost abdomen. It is notable that her bilirubin and liver function tests have markedly increased in the last 24 hours, which is likely also related to progression of the upper abdominal tumor. She clearly will not be ready for discharge home today, and we may find we are getting into a situation that there is a rapid deterioration of her state and may not able to get home per se. We will try to discontinue oral oxycodone liquid today, which she did not want to try starting last night. The Ativan seems to be helpful with the nausea, and she will be encouraged to use that. We will give her some bowel stimulation and continue the tube feedings. Juan Zafar MD /[id number]
--- NOTE | 2017-02-07 09:47 | CR ---
Chest 1V Frontal INDICATION: drop in sats FINDINGS: Comparison 02/01/2017. Right IJ central line with tip in the low SVC. Normal heart size allo wing for portable AP technique. Postoperative changes right lung with stable opacity in the right regla ng base. No significant change since prior exam.
--- NOTE | 2017-02-08 10:43 | PN ---
DATE OF SERVICE: 02/06/2017 Over the last 24 hours, the patient's condition has deteriorated significantly in terms of her level of consciousness, and her O2 sats are becoming low, despite oxygenation. Chest x- ray surprisingly does not look that terrible, but she does definitely have a significant infiltrate in the right base. O2 sats are in the mid 80s, presently on mask oxygen. She is not significantly arousable. There has not been any further emesis since yesterday. The tube feedings are going to stop, as abdomen is quite distended. The striking finding in labs is elevation of bilirubin now up to 4.0. We are likely running into a situation where the bile ducts are being obstructed by the encroaching tumor, and her alkaline phosphatase was also quite high at 589. A long discussion was held initially with the daughter and then also with the 2 sons and all are in agreement that this is a case that should be treated at this point with a DNR/DNI status, more or less comfort care, as there is no real pathway for this case to survive the present situation. Given this, the comfort care approach will be initiated. Juan Zafar MD /[id number]
--- NOTE | 2017-02-11 12:01 | DISCH ---
DATE OF : 02/06/2017 FINAL DIAGNOSES: 1. Stage IV gastric adenocarcinoma. 2. Smoker's bronchiolitis. 3. Bariatric surgery status. 4. secondary to respiratory depression and possible aspiration as a complication of rapidly progressing gastric carcinoma. OPERATIVE PROCEDURES: 1. On 01/24/2017, upper GI endoscopy, flexible bronchoscopy with tracheobronchial washings, bronchoalveolar lavage, and excision of right axillary mass. 2. On 01/25/2017, right thoracoscopy with right superior segmentectomy, along with wedge biopsy of basilar segment of right lower lobe and mediastinal lymph node biopsy with insertion of double-lumen Parr catheter via left subclavian approach. 3. On 01/30/2017, removal of nonfunctioning left-sided Parr catheter and insertion of new right-sided double-lumen Parr catheter via right internal jugular vein. 4. On 01/31/2017, exploratory laparotomy with partial resection of intraperitoneal mesh with wedge resection of transverse colon, placement of feeding tube jejunostomy. SUMMARY AND HOSPITAL COURSE: This was a 51-year-old female presenting to the emergency room on the afternoon of 01/22/2017 and was admitted on 01/23/2017. Presenting findings were that of an inflamed-appearing mass in her right axilla, some lymphadenopathy in the posterior triangle area, and a CT scan showing multiple pulmonary nodules. The CT scan of the abdomen showed ascites, but no other obvious reportable items, apart from the gastric bypass status and previous cholecystectomy. The patient had been treated for roughly 2 months for the axillary mass with this thought to be evidence of an infectious process and received some courses of antibiotics for that. Over the two weeks prior to the hospitalization, she started developing abdominal pain and anorexia with the pain primarily being in the upper abdomen from the midline, somewhat more towards the right side. Following admission, on 01/24/2017, the patient underwent an upper GI endoscopy, and this showed the esophagus, gastric pouch, gastrojejunostomy, and segment of the [place] limb to be normal. Also, underwent a flexible bronchoscopy, targeting the nodules. This failed to show any malignancy. Did show some fungal elements, and the right axillary mass was then excised. Frozen sections on this were somewhat suspicious for a possible malignant process. On 01/25/2017, the patient underwent a right thoracoscopy. It appeared that the lung nodules, which were multiple, may be metastatic disease or possibly primary disease, and these could be infectious versus neoplastic. The portions of the lungs that had the most dominant nodules were the superior segment of right lower lobe, and this was removed, along with an additional area of nodularity in the medial basilar segment of right lower lobe, and lymph node biopsies were also obtained. A double-lumen Parr catheter was then inserted at that surgical procedure as well. The final pathology on the lung was that of smoker's bronchiolitis without evidence of neoplasia. Later in the week, the pathology report on the axillary mass came back. This was a metastatic adenocarcinoma with interestingly the tumor markers indicating this to be upper gastrointestinal primary, either esophagus or stomach. As the esophagus had been cleared endoscopically, we were presumably dealing with gastric carcinoma. In the interim, her Parr catheter became totally nonfunctional. She had been receiving TPN during this period, and a new Parr catheter was placed in the right internal jugular vein site on 01/30/2017. On 01/31/2017, the patient underwent an exploratory laparotomy. It was felt that it would be beneficial to perhaps resect that tumor to both confirm the site of origin, as well as prevent problems such as bleeding or closed loop obstruction. For instance, if this was an antral tumor, at some point, it might obstruct the outlet of the stomach, which would be a closed loop obstruction with the patient having been status post gastric bypass. 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 During the course of dissection, in order to get into the abdomen, a portion of the mesh with adherent transverse colon was removed, along with a wedge of the transverse colon, and a feeding jejunostomy was placed to help facilitate subsequent chemotherapy, in terms of maintaining nutritional status. Of note, the patient had peritoneal cytology obtained at this procedure that did come back showing metastatic adenocarcinoma, although there were no obvious tumor implants, other than some firmness in the rectum, which probably was metastatic disease. Subsequent to that, the patient was doing progressively better, and on Tuesday of that week, the plan was to have the patient be discharged home with continued tube feedings, along with oral intake; however, Tuesday morning, she was having some nausea and vomiting, and it was notable that her bilirubin was beginning to climb. Over the next 24 hours then, she progressively worsened in terms of level of consciousness and developed respiratory depression and progressive hypoxia. There may have been a component of some aspiration, although chest x-ray was not overly dramatic. With the progressive hypoxia and loss of significant consciousness, the family decided to place the patient on a DNR status, given that this was essentially a terminal carcinoma situation, and the patient with family members present in the late morning on 02/06/2017. No autopsy was obtained.
== END 2017-02-06 10:14 | disposition expired | DRG 345 ==
LOC: JP.ED 19:24 → JP.MS 01-23 01:29 → JP.2SS 01-31 15:15
PROVIDERS: ADMIT Hospitalist; ATTEND Internal Medicine
PROC: 0DJ08ZZ Inspection of Upper Intestinal Tract, Via Natural or Artificial Opening Endoscopic (ICD-10-PCS; principal; 2017-01-24)
PROC: 0JB60ZZ Excision of Chest Subcutaneous Tissue and Fascia, Open Approach (ICD-10-PCS; principal; 2017-01-24)
PROC: 0BB18ZX Excision of Trachea, Via Natural or Artificial Opening Endoscopic, Diagnostic (ICD-10-PCS; principal; 2017-01-24)
PROC: 0BBF8ZX Excision of Right Lower Lung Lobe, Via Natural or Artificial Opening Endoscopic, Diagnostic (ICD-10-PCS; principal; 2017-01-24)
PROC: 30233N1 Transfusion of Nonautologous Red Blood Cells into Peripheral Vein, Percutaneous Approach (ICD-10-PCS; 2017-01-25)
PROC: 07B74ZX Excision of Thorax Lymphatic, Percutaneous Endoscopic Approach, Diagnostic (ICD-10-PCS; 2017-01-25)
PROC: 0BBC4ZZ Excision of Right Upper Lung Lobe, Percutaneous Endoscopic Approach (ICD-10-PCS; 2017-01-25)
PROC: 02HV33Z Insertion of Infusion Device into Superior Vena Cava, Percutaneous Approach (ICD-10-PCS; 2017-01-25)
PROC: 0BBF4ZX Excision of Right Lower Lung Lobe, Percutaneous Endoscopic Approach, Diagnostic (ICD-10-PCS; 2017-01-25)
PROC: B214YZZ Fluoroscopy of Right Heart using Other Contrast (ICD-10-PCS; 2017-01-30)
PROC: 0WP903Z Removal of Infusion Device from Right Pleural Cavity, Open Approach (ICD-10-PCS; 2017-01-30)
PROC: 02H633Z Insertion of Infusion Device into Right Atrium, Percutaneous Approach (ICD-10-PCS; 2017-01-30)
PROC: 30233N1 Transfusion of Nonautologous Red Blood Cells into Peripheral Vein, Percutaneous Approach (ICD-10-PCS; 2017-01-30)
PROC: 0WPF0JZ Removal of Synthetic Substitute from Abdominal Wall, Open Approach (ICD-10-PCS; 2017-01-31)
PROC: 0DBL0ZX Excision of Transverse Colon, Open Approach, Diagnostic (ICD-10-PCS; 2017-01-31)
PROC: 0DHA3UZ Insertion of Feeding Device into Jejunum, Percutaneous Approach (ICD-10-PCS; 2017-01-31)
DX: C16.9 Malignant neoplasm of stomach, unspecified (principal); C79.89 Secondary malignant neoplasm of other specified sites; J80 Acute respiratory distress syndrome; R18.8 Other ascites; R41.82 Altered mental status, unspecified; J41.0 Simple chronic bronchitis; R22.2 Localized swelling, mass and lump, trunk; R91.8 Other nonspecific abnormal finding of lung field; R59.0 Localized enlarged lymph nodes; Z98.84 Bariatric surgery status; Z98.0 Intestinal bypass and anastomosis status; D64.9 Anemia, unspecified; F17.210 Nicotine dependence, cigarettes, uncomplicated; Z85.42 Personal history of malignant neoplasm of other parts of uterus; Z88.6 Allergy status to analgesic agent; Z91.030 Bee allergy status; Z88.5 Allergy status to narcotic agent; Z91.010 Allergy to peanuts; Z88.8 Allergy status to other drugs, medicaments and biological substances; Z66 Do not resuscitate
CPT/HCPCS: 36415; 36430; 71010; 71010-26; 74177; 80048; 80053; 81001; 82378; 82607; 82728; 83550; 83735; 84100; 85014; 85018; 85025; 85027; 86140; 86850; 86900; 86901; 86920; 86922; 87015; 87070; 87075; 87102; 87116; 87205; 87206; 87220; 88112; 88304; 88305; 88307; 88342; 88360; 93976; 93976-26; 94667; 94762; 96361; 96374; 96375; 96376; 99285-25; A9270-GY; C9113; J0131; J0694; J1100; J1642; J1650; J1756; J1940; J2060; J2185; J2250; J2270; J2405; J2543; J2704; J2765; J3010; J3420; J3475; J7030; J7040; J7042; J7050; J7120; P9016; P9047; Q9967; S0077